=== PATIENT | female | born 1980 | race Caucasian/White ===

== ENCOUNTER 2020-08-13 22:56 | Emergency (ER) | payer MEDICAID, SELFPAY ==
--- NOTE | 2020-08-13 00:02 | RAD_ITS ---
STUDY: X-RAY CHEST REASON FOR EXAM: Female, 39 years old. SEIZURE, SOB. PT STATES HX OF HYPOTENSION. TECHNIQUE: Single AP portable view of the chest. COMPARISON: None. FINDINGS: The lungs are clear and expanded. There is no demonstrated pleural abnormality. Normal size heart. Normal mediastinum and martina. Normal visualized pulmonary arteries. Normal visualized aortic arch and descending thoracic aorta. Normal visualized thoracic spine. Normal visualized ribs, clavicles, and shoulders. There is no demonstrated abnormality of the visualized soft tissue structures of the upper abdomen. RAD/Chest 1 View (Portable) IMPRESSION: Normal x-ray examination of the chest. Electronically Signed: Nohemy Rios, at 1:01 EDT Tel , Service support ,
[2020-08-13 23:00] VITALS: BP 110/74; PULSE 89; RESP 16; TEMP 36.6; O2SAT 98; BMI 22.1
--- NOTE | 2020-08-13 23:34 | ED.DCSUM_ITS ---
History of Present Illness Chief Complaint: Seizure Informant: Patient, Significant Other Narrative: Patient is a 39-year-old female with a past medical history of seizure disorder, hepatitis C, psychiatric disorders who presents to the emergency department after 2 seizures tonight. Each lasted a few minutes. It sounded like one full episode as she had some convulsion-like activity for 2 minutes and then stiffened up. A few minutes later she again had convulsions. At time of arrival to the emerge department she is feeling much better. She was feeling sleepy prior to coming in. She only is on gabapentin as she was previously on antiepileptic medications but she did not like the way she felt on them. Her PCP did just decrease her dose. She has been having URI symptoms including a cough that has been productive over the past 2 days. She has felt warm but has not taken her temperature. She has been having bilateral ear pain, sore throat and congestion. She has been coughing up a green phlegm. No known sick contacts. No known coronavirus exposures. She denies any weakness or loss sensation in any extremity. No significant headache. No vision changes. She denies any urinary symptoms. She is a current everyday smoker. Denies alcohol or drug use. She states that she has been clean over the past 3-1/2 months. Past Medical History - Allergies and Home Meds Allergies/Adverse Reactions: Allergies acetaminophen [From Vicodin] Adverse Reaction (Verified 08/13/20 23:04) Upset Stomach hydrocodone [From Vicodin] Adverse Reaction (Verified 08/13/20 23:04) Upset Stomach latex Adverse Reaction (Verified 08/13/20 23:04) Fever and skin rash Primary Care Physician: Care Physician,No Primary [Primary Care Provider] - 1 Day Prior records reviewed: Yes Smoking Status: Current every day smoker Review of Systems All systems negative except as indicated General: Reports: Fever - Subjective. Denies: Chills, Sweats Eyes: Denies: Visual changes - bilaterally, Diplopia ENT: Reports: Bilateral ear pain, Sore throat. Denies: Rhinorrhea Cardiovascular: Denies: Chest pain, Palpitations Respiratory: Reports: Dyspnea, Cough, Sputum Gastrointestinal: Denies: Abdominal pain, Nausea, Vomiting, Diarrhea, Melena, Hematochezia Genitourinary: Denies: Dysuria, Hematuria, Frequency Musculoskeletal: Denies: Back pain, Extremity Pain Skin: Denies: Rash, Wounds Neurological: Denies: Headache, Weakness, Numbness Physical Exam Vital Signs/Narrative: Vital Signs Temp Pulse Resp BP Pulse Ox 08/13/20 23:00 97.9 F 89 16 110/74 98 General: Well nourished, Well developed, No Acute Distress Head: Normocephalic, Atraumatic Eyes: Perrl, EOMI ENT: Moist mucous membranes, Nasal congestion, - - Tympanic membrane view is obstructed due to cerumen impaction bilaterally. No evidence of otitis externa. Neck: Supple, Nontender Cardiovascular: Regular rate, Regular rhythm, No murmurs Respiratory: No distress, CTA bilaterally, Chest nontender Abdomen: Soft, Nontender, Nondistended, Normal bowel sounds Back: Nontender, Normal Inspection Extremities: Nontender, No edema Skin: Normal color, No rash Neurological: Alert, Oriented x3, Cranial nerves II-XII grossly intact, Normal Strength, Normal Sensation Psychological: Normal affect, Normal Mood Diagnostic/Tx/Re-eval - Medical Decision Making Patient presents to the ED after seizure-like activity. She has a history of this in the past and this had a recent decrease of her gabapentin which is her only medication she states she is on for seizures. She is also having URI-like symptoms. Upon arrival to the emerge department vital signs within normal limits. She does not appear in any acute distress. Will check basic lab work, chest x-ray and coronavirus swab. Patient's work-up did not reveal any significant acute abnormality. No evidence of pneumonia on chest x-ray. She did not have any repeat seizure-like activity throughout ED stay. This time she does feel comfortable going home. We will have her follow-up with her PCP for continued management of her seizures. She may require the increase back of her gabapentin or start on antiepileptic medication. At this time she does not want to be restarted on anything given the fact the way it makes her feel. At this time will discharge home in stable condition. Warning signs and symptoms for which to return to the ED are reviewed with her. She understands and is agreeable this plan. All questions answered. Coronavirus is currently pending. ED Disposition - Plan for ED Patient: Disposition: Home or Assisted Living Diagnosis: Seizure, URI (upper respiratory infection) Instructions: ED Seizure Recurrent Adult, ED URI Viral Referrals: Care Physician,No Primary [Primary Care Provider] - 1 Day
[2020-08-13 23:55] LABS: Absolute Neutrophil Count 3.7 X10^3/uL (2.0-7.7); Basophil# 0.04 X10^3/uL; Basophil% 0.6 % (0-1); Eosinophil# 0.12 X10^3/uL; Eosinophils% 1.9 % (0-5); Hemoglobin 11.6 g/dL (12.0-15.0); Lymphocyte % 29.9 % (19-41); Mean Corp Hgb Conc 34.1 g/dL (32-36); Mean Corpuscular Hgb 30.2 pg (27.0-32.0); Mean Corpuscular Volume 88.5 fL (81-99); Mean Platelet Vol. 9.4 fl (6.2-12.0); Monocyte# 0.56 X10^3/uL; Monocyte% 8.8 % (0-10); NRBC Flagged by Analyzer 0 % (0-5); Neutrophil # 3.68 X10^3/uL (2.7-7.7); Neutrophil % 57.9 % (47-70); Platelet Count 301 K/mm3 (150-450); RBC Distribution Width CV 11.3 % (11.6-14.6); RBC Distribution Width SD 36.1 fl (35.1-43.9); Red Blood Count 3.84 M/mm3 (4.2-5.4); White Blood Count 6.4 K/mm3 (4.4-11.0)
[2020-08-14 00:01] LABS: Internal QC Validated? YES +Cl - CLEAR BKGD; Pregnancy, Serum, hCG Quali. NEGATIVE Negative
[2020-08-14 00:12] LABS: ALB/GLOB Ratio 1.2 RATIO (0.9-2.4); AST(SGOT) 19 U/L (15-37); Alanine Aminotransfer ALT/SGPT 32 U/L (13-56); Albumin, Serum 3.8 g/dL (3.2-5.0); Alkaline Phosphatase 60 U/L (45-117); Anion Gap 5 (5-15); BUN 14 mg/dL (7-18); BUN/Creat Ratio 18.2 RATIO (10-20); Calcium,Total 8.6 mg/dL (8.5-10.1); Chloride 111 mmol/L (98-107); Creatinine, Serum 0.77 mg/dL (0.55-1.02); EST Glomerular Filtration Rate 89 mL/min (>60); Est Glom Filt Rate - Afr Amer 107 mL/min (>60); Estimated Creatinine Clearance 74.02 ml/min; Globulin 3.3 g/dL (2.2-4.2); Glucose 128 mg/dL (74-106); Potassium 3.4 mmol/L (3.5-5.1); Protein, Total 7.1 g/dL (6.4-8.2); Sodium Level 141 mmol/L (136-145)
[2020-08-14 01:28] VITALS: BP 128/72; PULSE 68; RESP 16; O2SAT 98
== END 2020-08-14 01:30 | disposition home or self-care (01) ==
PROVIDERS: Emergency Provider Emergency Medicine
DX: G40.909 Epilepsy, unspecified, not intractable, without status epilepticus (principal); J06.9 Acute upper respiratory infection, unspecified; H61.23 Impacted cerumen, bilateral; Z79.899 Other long term (current) drug therapy; F17.200 Nicotine dependence, unspecified, uncomplicated
CPT/HCPCS: 71045; 80053; 84484; 84703; 85025; 87635; 99285; A4216; U0003

== ENCOUNTER 2020-09-30 13:07 | Emergency (ER) | payer MEDICAID, SELFPAY ==
[2020-09-30 13:08] VITALS: BP 130/81; PULSE 79; RESP 16; TEMP 36; O2SAT 99; BMI 21.7
--- NOTE | 2020-09-30 13:32 | CT_ITS ---
STUDY: CT BRAIN WITHOUT CONTRAST REASON FOR EXAM: Female, 39 years old. HIT HEAD-RIGHT TEMPORO-PARIETAL AREA X2 WEEKS AGO--STILL HAS BUMP ON HEAD -- HEADACHE,INTERMITTENT DIZZINESS -- ?SEIZURE WHILE SLEEPING X2 DAYS AGO RADIATION DOSAGE (If Supplied By Facility): CTDIvol = ( 44.99 ) mGy, DLP = ( 745.49 ) mGycm TECHNIQUE: Transaxial CT imaging of the brain was performed without administration of intravenous contrast material. Individualized dose optimization techniques were used for this CT. COMPARISON: No relevant priors. FINDINGS: Normal soft tissue structures. Normal calvarium. Normal size ventricles and extra-axial spaces for the patient''s age. Normal white matter tracts of the cerebral hemispheres. Normal basal ganglia and thalami. Normal brainstem. Normal cerebellum. There is no intracranial hemorrhage. There are no findings of an acute ischemic infarction. Normal visualized paranasal sinuses. CT/Brain/Head without Contrast IMPRESSION: Normal unenhanced CT scan of the brain. Electronically Signed: Jamir Galvan, at 13:56 EST , Service support ,
--- NOTE | 2020-09-30 13:33 | ED.DCSUM_ITS ---
History of Present Illness Chief Complaint: Head Injury Informant: Patient Onset: Days - 2 Context: Gradual Onset - Symptoms after injury Timing: Continuous Quality: ache Location: right head Current Severity: Moderate Maximum Severity: Moderate Worsened by: nothing Relieved by: ibuprofen but minimal relief Associated Symptoms: Vertiginous, nausea, blurry vision at times Narrative: Patient states 2 days ago she was coming down her steps and accidentally hit the right temporal area of her scalp/head on part of the ceiling that bends down. She did not lose consciousness, she states she hit it pretty hard though. Since then she has felt gradually dizzy, headache, nausea. No focal neurologic symptoms. No syncope even later, no confusion, no diplopia but is having blurry vision. Does not take any anticoagulants. Past Medical History - Allergies and Home Meds Allergies/Adverse Reactions: Allergies acetaminophen [From Vicodin] Adverse Reaction (Verified 09/30/20 13:10) Upset Stomach hydrocodone [From Vicodin] Adverse Reaction (Verified 09/30/20 13:10) Upset Stomach latex Adverse Reaction (Verified 09/30/20 13:10) Fever and skin rash Primary Care Physician: Doctor,Your [STAFF PHYSICIAN] - 1 Week if not improving Past Medical History: None Smoking Status: Current every day smoker Review of Systems General: Reports: - - Vertigo off and on. Denies: Chills, Fever, Sweats Eyes: Reports: Blurred Vision - bilaterally. Denies: Diplopia ENT: Reports: - - No otorrhea. Denies: Rhinorrhea, Sore throat Cardiovascular: Denies: Chest pain, Palpitations Respiratory: Denies: Dyspnea, Cough, Dyspnea on exertion Gastrointestinal: Reports: Nausea. Denies: Abdominal pain, Vomiting, Diarrhea, Melena, Hematochezia Genitourinary: Denies: Dysuria, Hematuria, Frequency Musculoskeletal: Denies: Back pain, Extremity Pain Skin: Denies: Rash, Wounds Neurological: Denies: Headache, Weakness, Numbness Physical Exam Vital Signs/Narrative: Vital Signs Temp Pulse Resp BP Pulse Ox 09/30/20 13:08 96.8 F L 79 16 130/81 H 99 Inital Vital Signs reviewed: Yes General: Well nourished, Well developed, No Acute Distress Head: Normocephalic, Tenderness - Right temporal scalp, small hematoma. No crepitance or depression or purpura/ecchymosis. Eyes: Perrl, EOMI, - - No photophobia ENT: Moist mucous membranes, No rhinorrhea, - - Cerumen impaction bilaterally, none of either TM is visible. No otorrhea. No haney sign. No periorbital e cchymosis. Midface stable and atraumatic. Neck: Supple - Full range of motion without pain., Nontender Respiratory: No distress Extremities: Nontender, No edema Skin: Normal color, No rash, Trauma - Minor contusion right temporal scalp, no laceration or other evidence of injury. Neurological: Alert, Oriented x3, Cranial nerves II-XII grossly intact, Normal Strength, Normal Sensation, Normal Gait Psychological: Normal affect, Normal Mood Diagnostic/Tx/Re-eval Clinical Impression(s) from Imaging Studies Brain CT 09/30/20 13:32 IMPRESSION: Normal unenhanced CT scan of the brain. Electronically Signed: Jamir Mandy, at 13:56 EST , Service support , - Medical Decision Making CT head obtained, it is negative. Patient is reassured, she likely has mild concussion. She was given medications and prescriptions for the symptoms, and advised to follow-up if her symptoms last longer than 1 week. ED Disposition - Plan for ED Patient: Disposition: Home or Assisted Living Diagnosis: Concussion without loss of consciousness Instructions: ED Concussion Prescriptions: Meclizine HCl 25 mg PO Q8H PRN #16 tab PRN Reason: Dizziness Prescription Printed Ondansetron [Zofran Odt] 8 mg PO Q8H PRN PRN #16 tab PRN Reason: Nausea Prescription Printed Referrals: Doctor,Your [STAFF PHYSICIAN] - 1 Week if not improving
[2020-09-30] MEDS: Ondansetron ODT 4 MG Tablet 8 MG PO (14:11)
[2020-09-30] MEDS: Acetaminophen 500 MG Tablet 1000 MG PO (14:11)
[2020-09-30] MEDS: Meclizine HCl 25 MG Tablet PO (14:12)
== END 2020-09-30 14:30 | disposition home or self-care (01) ==
LOC: ED 13:59
PROVIDERS: Emergency Provider Emergency Medicine
DX: S06.0X0A Concussion without loss of consciousness, initial encounter (principal); S00.03XA Contusion of scalp, initial encounter; W22.8XXA Striking against or struck by other objects, initial encounter; Y93.9 Activity, unspecified; Y92.9 Unspecified place or not applicable; F17.200 Nicotine dependence, unspecified, uncomplicated
CPT/HCPCS: 70450; 99283

== ENCOUNTER 2020-10-23 17:51 | Emergency (ER) | payer MEDICAID, SELFPAY ==
[2020-10-23 17:52] VITALS: BP 120/72; PULSE 97; RESP 15; TEMP 36.3; BMI 22.5
[2020-10-23] MEDS: Naproxen 500 MG Tablet PO (18:11)
[2020-10-23] MEDS: oxyCODONE 5 MG Tablet PO (18:11)
--- NOTE | 2020-10-23 18:15 | RAD_ITS ---
STUDY: X-RAY - THORACIC SPINE REASON FOR EXAM: Female, 40 years old. Pt with pain mid-low back after a fall a couple days ago. TECHNIQUE: 3 view(s) of the thoracic spine were obtained. COMPARISON: None. FINDINGS: Normal kyphosis of the thoracic spine. There is no substantial scoliosis. Normal thoracic vertebrae and endplates. Mild degenerative disc changes of the upper mid thoracic spine. The soft tissue structures are unremarkable. RAD/Thoracic Spine 3 Views IMPRESSION: Normal alignment of the thoracic spine without acute fracture deformity. Mild degenerative disc changes. Electronically Signed: Radha Lam MD at 18:44 EST , Service support ,
--- NOTE | 2020-10-23 18:24 | ED.DCSUM_ITS ---
- ER Visit Summary Date of Service: 10/23/20 Chief Complaint: Fall History of Present Illness: The patient is a 40 F who does not remember the name of her primary care physician. She reports that 3 days ago she fell while going down the stairs and injured her upper back. States she has pain instead of 10 severity unrelieved by ibuprofen. She denies any blow to the head or loss of consciousness. She not on anticoagulants. She denies neck, shoulder, wrist, or hip pain. Physical Examination: Vitals: Stable. Afebrile. Neck: No vertebral tenderness. Full ROM without difficulty. Cleared by NEXUS criteria. Back: Moderate tenderness palpation over the midportion of the thoracic spine. No point tenderness.. General: A&O x 3. NAD. Cardiovascular exam: Regular rate and rhythm, no murmur, rub or gallop. Respiratory exam: Chest nontender. No crepitus. Clear to auscultation bilaterally. No wheezes or stridor. Abdominal exam: Soft, nontender, nondistended, normal bowel sounds. No pain in RUQ or LUQ specifically. No peritoneal signs. Extremity: Atraumatic. No pain with range of motion. Test Results: 3 view of the thoracic spine is negative. Emergency Department Course and Treatment: An [facility] report was obtained which was negative. Patient was given a dose of oxycodone and naproxen here. Treatment Plan: With negative x-rays I do not think that opiate-based medications are warranted. She will be discharged instructions use Tylenol and/or ibuprofen for pain. Use a heating pad. Follow-up with her primary care physician in 3 to 5 days if not improving. Return to the emergency department for any worsening symptoms. Disposition: To home in improved and stable condition. Impression: 1. Fall. 2. Upper back pain. This note was generated with [employer] dictation software. It may contain incorrect words, spelling, and punctuation that were not noted in review of the chart prior to signing ED Disposition - Plan for ED Patient: Instructions: ED Back Pain (Acute or Chronic) Referrals: Doctor,Your [STAFF PHYSICIAN] - 3-5 Days if not improving
[2020-10-23 18:40] VITALS: RESP 16
== END 2020-10-23 18:42 | disposition home or self-care (01) ==
LOC: ED 18:37
PROVIDERS: Emergency Provider Emergency Medicine
DX: M54.9 Dorsalgia, unspecified (principal); R05 Cough; R11.0 Nausea; W10.9XXA Fall (on) (from) unspecified stairs and steps, initial encounter; Y93.9 Activity, unspecified; Y92.9 Unspecified place or not applicable; G40.909 Epilepsy, unspecified, not intractable, without status epilepticus; Z79.899 Other long term (current) drug therapy; F17.200 Nicotine dependence, unspecified, uncomplicated
CPT/HCPCS: 72072; 99283

== ENCOUNTER 2020-11-19 17:19 | Emergency (ER) | payer MEDICAID, SELFPAY ==
[2020-11-19 17:21] VITALS: BP 102/65; PULSE 74; RESP 14; TEMP 37.2; O2SAT 98; BMI 22.3
[2020-11-19 17:50] VITALS: PULSE 71; RESP 16; O2SAT 97
--- NOTE | 2020-11-19 18:06 | CT_ITS ---
STUDY: CT BRAIN WITHOUT CONTRAST REASON FOR EXAM: Female, 40 years old. SEIZURE,RT SIDED WEAKNESS X 2 DAYS AGO -- HX:SEIZURES,COPD,HEP C,PTSD RADIATION DOSAGE (If Supplied By Facility): CTDIvol = ( 44.99 ) mGy, DLP = ( 762.36 ) mGycm TECHNIQUE: Transaxial CT imaging of the brain was performed without administration of intravenous contrast material. Individualized dose optimization techniques were used for this CT. COMPARISON: 09/30/2020. FINDINGS: Normal soft tissue structures. Normal calvarium. Normal size ventricles and extra-axial spaces for the patient''s age. Normal white matter tracts of the cerebral hemispheres. Normal basal ganglia and thalami. Normal brainstem. Normal cerebellum. There is no intracranial hemorrhage. There are no findings of an acute ischemic infarction. Normal visualized paranasal sinuses. CT/Brain/Head without Contrast IMPRESSION: Normal unenhanced CT scan of the brain. Electronically Signed: Terra Chatman MD at 19:07 EST Tel , Service support ,
--- NOTE | 2020-11-19 18:06 | EKG12_ITS ---
Test Reason : DYSRHYTHMIA Blood Pressure : / mmHG Vent. Rate : 059 BPM Atrial Rate : 059 BPM P-R Int : 142 ms QRS Dur : 070 ms QT Int : 408 ms P-R-T Axes : 053 073 065 degrees QTc Int : 403 ms Sinus bradycardia with sinus arrhythmia Otherwise normal ECG Confirmed by JENNIFER MEEHAN, OMAR ([id number]), newspaper or periodical editor MICA VILLASEÑOR ([id number]) on 11/23/2020 10:55:12 AM Referred By: CHIP Confirmed By:NICA RODRIGUEZ MD
--- NOTE | 2020-11-19 18:09 | ED.DCSUM_ITS ---
- ER Visit Summary Date of Service: 11/19/20 Chief Complaint: Seizure and right-sided weakness History of Present Illness: The patient is a 40 F who presents with a seizure and right-sided weakness that occurred 2 days ago. Patient states she has a history of seizures. Patient states her last 1 was 2 days ago. Patient states that after her seizure she had some right sided weakness. Patient states she noticed it in her face, arm, and leg. Patient denies any difficulty swallowing or difficulty talking. Patient denies any headaches. Patient states she has been compliant with her seizure medications. Physical Examination: Vital signs are stable. Patient is afebrile. Patient is in no acute distress. Cranial nerves II through XII are intact except for slight facial weakness. Strength is 4/5 in the right upper and lower extremities. Strength is 5/5 in the left upper and lower extremities. There are no sensory deficits noted. Heart was regular rate and rhythm. Lungs are clear and equal bilaterally. Abdomen is soft. Bowel sounds are normal. There is no tenderness. Extremities are intact. There is no calf tenderness or edema. Test Results: EKG was obtained. On my interpretation, there is a normal sinus rhythm with a rate of 59. There are no acute ST or T wave changes. CT scan of the brain was obtained. There is no acute intracranial abnormality. This was interpreted by the radiologist and reviewed by myself. CBC and comprehensive metabolic profile were obtained and were essentially within normal limits. Emergency Department Course and Treatment: Patient is feeling better on reev aluation. 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 Patient was instructed to follow-up with her primary care physician in 3 to 5 days. Patient was instructed to continue her seizure medications as prescribed. Patient was instructed return if worse in any way. Patient understood and was agreeable with the plan. All questions were answered. Disposition: Discharge home Impression: 1. Pradeep's paralysis 2. Seizure This note was generated with [employer] dictation software. It may contain incorrect words, spelling, and punctuation that were not noted in review of the chart prior to signing ED Disposition - Plan for ED Patient: Disposition: Home or Assisted Living Diagnosis: Pradeep's paralysis (postepileptic), Seizure Instructions: ED Seizure, Recurrent (Adult) Referrals: Care Physician,No Primary [Primary Care Provider] - 3-5 Days
[2020-11-19 18:56] LABS: Absolute Lymphocyte Count 2.15 X10^3/uL (0.83-4.51); Basophil# 0.03 X10^3/uL; Basophil% 0.6 % (0-1); Eosinophil# 0.11 X10^3/uL; Eosinophils% 2.3 % (0-5); Hemoglobin 12.2 g/dL (12.0-15.0); Lymphocyte # 2.15 X10^3/ul (4.0); Lymphocyte % 45.7 % (19-41); Mean Corp Hgb Conc 33.9 g/dL (32-36); Mean Corpuscular Hgb 30.7 pg (27.0-32.0); Mean Corpuscular Volume 90.7 fL (81-99); Mean Platelet Vol. 9.6 fl (6.2-12.0); Monocyte# 0.44 X10^3/uL; Monocyte% 9.4 % (0-10); NRBC Flagged by Analyzer 0.4 % (0-5); Neutrophil # 1.97 X10^3/uL (2.7-7.7); Platelet Count 302 K/mm3 (150-450); RBC Distribution Width CV 12.1 % (11.6-14.6); RBC Distribution Width SD 40.2 fl (35.1-43.9); Red Blood Count 3.97 M/mm3 (4.2-5.4); White Blood Count 4.7 K/mm3 (4.4-11.0)
[2020-11-19 19:08] LABS: ALB/GLOB Ratio 1.2 RATIO (0.9-2.4); AST(SGOT) 14 U/L (15-37); Alanine Aminotransfer ALT/SGPT 25 U/L (13-56); Albumin, Serum 3.9 g/dL (3.2-5.0); Alkaline Phosphatase 63 U/L (45-117); Anion Gap 5 (5-15); BUN 14 mg/dL (7-18); BUN/Creat Ratio 18.6 RATIO (10-20); Calcium,Total 8.9 mg/dL (8.5-10.1); Chloride 109 mmol/L (98-107); Creatinine, Serum 0.75 mg/dL (0.55-1.02); EST Glomerular Filtration Rate 91 mL/min (>60); Est Glom Filt Rate - Afr Amer 110 mL/min (>60); Estimated Creatinine Clearance 75.24 ml/min; Globulin 3.3 g/dL (2.2-4.2); Glucose 99 mg/dL (74-106); Potassium 3.7 mmol/L (3.5-5.1); Protein, Total 7.2 g/dL (6.4-8.2); Sodium Level 141 mmol/L (136-145)
== END 2020-11-19 20:04 | disposition home or self-care (01) ==
PROVIDERS: Emergency Provider Emergency Medicine
DX: G83.84 Todd's paralysis (postepileptic) (principal); G40.909 Epilepsy, unspecified, not intractable, without status epilepticus; J44.9 Chronic obstructive pulmonary disease, unspecified; Z79.899 Other long term (current) drug therapy
CPT/HCPCS: 70450; 80053; 85025; 93005; 99285; A4216

== ENCOUNTER 2020-12-02 17:16 | Observation (INO) | payer MEDICAID, SELFPAY ==
[2020-12-02] VITALS (7 sets, daily range): BP systolic 102–105; BP diastolic 66–69; PULSE 71–85; RESP 16–17; TEMP 36.4–37.1; O2SAT 95–98; BMI 23.0; BMI 22.8
--- NOTE | 2020-12-02 17:31 | EKG12_ITS ---
Test Reason : SEIZURE Blood Pressure : / mmHG Vent. Rate : 072 BPM Atrial Rate : 072 BPM P-R Int : 148 ms QRS Dur : 070 ms QT Int : 380 ms P-R-T Axes : 045 067 047 degrees QTc Int : 416 ms Normal sinus rhythm Normal ECG Confirmed by JENNIFER MEEHAN, OMAR ([id number]), newspaper or periodical editor MICA VILLASEÑOR ([id number]) on 12/04/2020 8:38:34 AM Referred By: CHANO Confirmed By:NICA RODRIGUEZ MD
--- NOTE | 2020-12-02 17:32 | ED.DCSUM_ITS ---
History of Present Illness Chief Complaint: Seizure Narrative: Patient presents after 3 different seizures today. She has had seizures every 2 to 3 days for the past 3 or 4 weeks. No change in her medications, she continues to take her Lamictal and gabapentin as well as prazosin. She is not withdrawing from anything. No head injury. She had a recent CT which was unremarkable. No recent fever chills cough congestion or shortness of breath. No ingestions. No nausea or vomiting. Seizures are mostly witnessed by and they are described as tonic-clonic. Past medical history: Seizure disorder, as well as psychiatric issues Medications: Reviewed as above Social history: Noncontributory Review of systems: All systems negative except as indicated General: Denies: Fever Eyes: Denies: Visual changes - bilaterally ENT: Denies: Rhinorrhea, Sore throat Cardiovascular: Denies: Chest pain Respiratory: Denies: Dyspnea, Cough Gastrointestinal: Denies: Abdominal pain, Nausea, Vomiting Genitourinary: Denies: Dysuria Musculoskeletal: Denies: Myalgias Skin: Denies: Rash Neurological: As above Psych: Reports: negative Hematologic: Denies: Easy bruising, Easy bleeding Physical exam General: Patient does appear chronically ill Head: Normocephalic, Atraumatic Eyes: Conjunctiva not pale ENT: Dry mucous membranes. Normal tongue no intraoral trauma Neck: Supple, Nontender, No lymphadenopathy Cardiovascular: Regular rate, Regular rhythm Respiratory: No distress, CTA bilaterally Abdomen: Soft, Nontender, Nondistended Back: Nontender, Normal Inspection. Negative for: CVA tenderness Extremities: Nontender, No edema. No trauma Skin: Normal color, No rash Neurological: Alert, Normal Strength, Normal Sensation. She is oriented x3. Psychological: Normal affect Past Medical History - Allergies and Home Meds Allergies/Adverse Reactions: Allergies acetaminophen [From Vicodin] Adverse Reaction (Verified 11/19/20 17:24) Upset Stomach hydrocodone [From Vicodin] Adverse Reaction (Verified 11/19/20 17:24) Upset Stomach latex Adverse Reaction (Verified 11/19/20 17:24) Fever and skin rash Primary Care Physician: Care Physician,No Primary [NON-STAFF] - Smoking Status: Current every day smoker Physical Exam Vital Signs/Narrative: Vital Signs Temp Pulse Resp BP Pulse Ox 12/02/20 17:17 97.6 F L 85 16 103/69 98 12/02/20 17:16 97.6 F L 85 16 98 Diagnostic/Tx/Re-eval - Medical Decision Making Patient had 3 different seizures and she was not fully coherent in between him per her , it seems like her seizures are progressing I will admit her to the hospital she can get a teleconference neurology consult inpatient. I also started her on Keppra IV in the emergency department. She is lucid and coherent, had a normal CT a few weeks ago therefore I will not repeated. ED Disposition - Plan for ED Patient: Disposition: Acute Care Hospital [facility] Diagnosis: Seizure
[2020-12-02 17:53] LABS: Absolute Lymphocyte Count 2.23 X10^3/uL (0.83-4.51); Absolute Neutrophil Count 2.2 X10^3/uL (2.0-7.7); Basophil# 0.03 X10^3/uL; Basophil% 0.6 % (0-1); Eosinophil# 0.13 X10^3/uL; Eosinophils% 2.6 % (0-5); Hematocrit 35.6 % (37-47); Hemoglobin 12.2 g/dL (12.0-15.0); Lymphocyte # 2.23 X10^3/ul (4.0); Lymphocyte % 44.8 % (19-41); Mean Corp Hgb Conc 34.3 g/dL (32-36); Mean Corpuscular Hgb 30.7 pg (27.0-32.0); Mean Corpuscular Volume 89.7 fL (81-99); Mean Platelet Vol. 9.6 fl (6.2-12.0); NRBC Flagged by Analyzer 0 % (0-5); Neutrophil # 2.18 X10^3/uL (2.7-7.7); Neutrophil % 43.8 % (47-70); Platelet Count 287 K/mm3 (150-450); RBC Distribution Width CV 11.9 % (11.6-14.6); RBC Distribution Width SD 39.2 fl (35.1-43.9); Red Blood Count 3.97 M/mm3 (4.2-5.4)
[2020-12-02 18:09] LABS: ALB/GLOB Ratio 1.4 RATIO (0.9-2.4); AST(SGOT) 16 U/L (15-37); Alanine Aminotransfer ALT/SGPT 28 U/L (13-56); Albumin, Serum 4.2 g/dL (3.2-5.0); Alkaline Phosphatase 59 U/L (45-117); Anion Gap 2 (5-15); BUN 15 mg/dL (7-18); BUN/Creat Ratio 20.1 RATIO (10-20); Calcium,Total 8.7 mg/dL (8.5-10.1); Chloride 110 mmol/L (98-107); Creatinine, Serum 0.75 mg/dL (0.55-1.02); EST Glomerular Filtration Rate 91 mL/min (>60); Est Glom Filt Rate - Afr Amer 110 mL/min (>60); Estimated Creatinine Clearance 75.24 ml/min; Globulin 3.1 g/dL (2.2-4.2); Glucose 100 mg/dL (74-106); Potassium 3.6 mmol/L (3.5-5.1); Protein, Total 7.3 g/dL (6.4-8.2); Sodium Level 140 mmol/L (136-145)
[2020-12-02 18:16] LABS: Lactic Acid 0.8 mmol/L (0.4-1.9)
[2020-12-02 18:57] LABS: Bacteria 0 SEEN /hpf (None Seen); Mucous, Urine 0 SEEN /hpf (<or=2+)
--- NOTE | 2020-12-02 19:10 | PCM.HP.STD ---
Problem List (1) History of polysubstance use Status: Acute (2) Recurrent fall Status: Chronic (3) Seizure Status: Acute (4) Chronic seizure disorder with history of head trauma Status: Acute History of Present Illness Date of Admission: 12/02/20 Chief Complaint: 3 seizures today The patient is a 40 year old F with history of multiple seizures in the past, last ER visit on 128 for seizure and mild right-sided weakness and impression was Pradeep's paralysis and was sent home with negative CT head. Today she came to ER with 3 episodes of seizure, grand mal type [id number] in last 1 and half hours. Each seizure episode lasted about 1 to 2 minutes as per the who is near the bedside and I witness. She had stiffness of her whole body and extension and then rhythmic motion of all 4 extremities. She denies any recent fever, cough, shortness of breath, burning micturition or new lower urinary tract symptoms or any signs and symptoms of infection. She also stated she is taking her medications, lamotrigine and gabapentin regularly. She has nausea but denies any vomiting. Patient is states she has fallen and had head injury multiple times in the past. She denies any history of intracranial surgery but was sutured for laceration wounds in the scalp in the past. Past Medical History Past Medical History (Chronic Problems): Chronic Problems Recurrent fall (Chronic) Allergies acetaminophen [From Vicodin] Adverse Reaction (Verified 11/19/20 17:24) Upset Stomach hydrocodone [From Vicodin] Adverse Reaction (Verified 11/19/20 17:24) Upset Stomach latex Adverse Reaction (Verified 11/19/20 17:24) Fever and skin rash Home Medications: Ambulatory Orders Medication Instructions Recorded Gabapentin [Neurontin] 100 mg PO TIDCM 08/13/20 Lamotrigine [Lamictal] 150 mg PO DAILY 08/13/20 Prazosin HCl 2 mg PO QHS 08/13/20 Risperidone 1 mg PO DAILY 08/13/20 Risperidone [Risperdal] 0.5 mg PO QHS 11/19/20 Naproxen 500 mg PO BID 12/02/20 Smoking Status: Current every day smoker - *Family History Paternal History Items: Unknown Review of Systems Constitutional: Denies: Chills, Fever, Weight Change HEENT: Denies: Head Aches, Sinus Congestion, Sinus Drainage Cardiovascular: Denies: Chest Pain, Palpitations Respiratory: Denies: Cough, Shortness of breath at rest, Sputum production Gastrointestinal: Denies: Abdominal Pain, Nausea, Vomiting Genitourinary: Denies: Dysuria Musculoskeletal: Denies: Joint Pain, Joint Tenderness Skin: Denies: Rash, Wounds Neurological: Reports: Balance problems, Seizures. Denies: Focal weakness, Numbness, Tingling Psychiatric: Denies: Anxiety, Depression, Homicidal Ideations, Suicidal Ideations Hematologic/ Lymphatic: Denies: Easy Bruising, Easy Bleeding Unable to obtain accurate/complete ROS d/t: From her near the bedside VTE Information - Inpt Only VTE Present on Admission: No VTE Mechan Device Prophylaxis: None VTE Pharm Prophylaxis ordered?: Yes Patient Problems: Active and Suspected Problems Seizure (Acute) History of polysubstance use (Acute) Chronic seizure disorder with history of head trauma (Acute) Objective: Physical exam General: Alert, Oriented x2, Cooperative but patient is slow to respond with delayed reaction HEENT: Atraumatic, PERRLA, EOMI, Normocephalic Oral: No Gingival or Mucosal Lesions/ Ulcerations Neck: Supple, No JVD, Negative Carotid Bruits Lungs: Air entry equal in bilateral lung bases. No crepitation/rhonchi Cardiovascular: Regular rate, Regular Rhythm, Normal S1, Normal S2, No murmurs Abdomen: Bowel Sounds Present, Soft, Non Tender, Non-Distended : No renal angle tenderness. No suprapubic tenderness. Extremities: No edema, Capillary Refill Less than 3 Seconds Skin: No rashes, No breakdown Musculoskeletal: No Tenderness to Palpation of Joints or Extremities. Decrease in the muscle bulk of extremities. Neurological: Cranial nerves II-XII grossly intact, Deep Tendon Reflexes 2+/4 and Symmetrical. Psych/Mental Status: Flat affect. - Physical Exam Vitals/I&O's: Vital Signs Temp Pulse Resp BP Pulse Ox 97.6 F L 85 16 103/69 98 12/02/20 17:17 12/02/20 17:17 12/02/20 17:17 12/02/20 17:17 12/02/20 17:17 Oxygen Delivery Method Room Air Weight: 121 lb 14.65 oz Body Mass Index (BMI) 23.0 Intake and Output for Last 24 Hours 11/30/20 12/01/20 12/02/20 23:59 23:59 23:59 Intake Total 605 / 605 Balance 605 / 605 Microbiology Past 72 Hours 12/02/20 18:16 Mucosa - Nose SARS-CoV-2 Antigen (Rapid) - Final Laboratory Results 12/02/20 17:44: WBC 5.0, RBC 3.97 L, Hgb 12.2, Hct 35.6 L, MCV 89.7, MCH 30.7, MCHC 34.3, RDW Std Deviation 39.2, RDW Coeff of Main 11.9, Plt Count 287, MPV 9.6, Immature Gran % (Auto) 0.200, Neut % (Auto) 43.8 L, Lymph % (Auto) 44.8 H, [place] % (Auto) 8.0, Eos % (Auto) 2.6, Baso % (Auto) 0.6, Absolute Neuts (auto) 2.2, Absolute Lymphs (auto) 2.23, Nucleated RBC % 0 12/02/20 17:44: Sodium 140, Potassium 3.6, Chloride 110 H, Carbon Dioxide 28.0, Anion Gap 2 L, BUN 15, Creatinine 0.75, Estim Creat Clear Calc 75.24, Est GFR (MDRD) Af Amer 110, Est GFR (MDRD) Non-Af 91, BUN/Creatinine Ratio 20.1 H, Glucose 100, Calcium 8.7, Total Bilirubin 0.40, AST 16, ALT 28, Alkaline Phosphatase 59, Total Protein 7.3, Albumin 4.2, Globulin 3.1, Albumin/Globulin Ratio 1.4 12/02/20 17:44: Lactic Acid 0.8 12/02/20 18:40: Urine Color Pending, Urine Clarity Pending, Urine pH Pending, Ur Specific [place] Pending, Urine Protein Pending, Urine Glucose (UA) Pending, Urine Ketones Pending, Urine Occult Blood Pending, Urine Nitrite Pending, Urine Bilirubin Pending, Urine Urobilinogen Pending, Ur Leukocyte Esterase Pending, Urine RBC Pending, Urine WBC Pending, Ur Squamous Epith Cells Pending, Urine Bacteria Pending, Urine Mucus Pending 12/02/20 : Lamotrigine Pending Assessment/Plan All Active Problems Seizure (Acute) History of polysubstance use (Acute) Chronic seizure disorder with history of head trauma (Acute) The patient is a 40 year old F with history of multiple seizures in the past, came to ER with 3 episodes of recurrent seizure grand mal type. 1. Recurrent seizure, exact etiology unclear: Patient is being admitted in PCU. MRI brain and EEG ordered for tomorrow a.m. EKG shows normal sinus rhythm at 72 bpm. QTC 416 ms. Patient was given 500 mg Keppra in ER and Keppra continue 500 mg IV twice daily. [facility] neurology consult after MRI brain and EEG are done. Magnesium and phosphorus are normal. K3.6 and 1 dose of K. Dur ordered. She was seen by seizure and right-sided weakness on November 11, 2020 which was thought to be Pradeep's paralysis. 2. History of recurrent fall, head injury in the past and polysubstance use in the past. Patient had recurrent ER visits 4 times since July 2020 and 3 times this year. She had fall and mild head injury and had ED visits on September 30, 2020 and October 23, 2020. PT and OT ordered. 3. VTE prophylaxis: Lovenox 40 subcu daily. OBSV E&M: 10238 Initial observation care L3
--- NOTE | 2020-12-02 19:20 | RAD_ITS ---
STUDY: X-RAY CHEST REASON FOR EXAM: Female, 40 years old. Seizure, concern for aspiration TECHNIQUE: PA and lateral views of the chest. COMPARISON: 08/13/2020. FINDINGS: Cardiac silhouette unremarkable. Pulmonary vascularity unremarkable. Aorta unremarkable. No focal airspace opacities. No pleural effusions. Bibasilar nodular densities are presumed to represent nipple shadows. Upper abdomen unremarkable. Osseous structures intact. No pneumothorax. RAD/Chest PA and Lateral IMPRESSION: No acute cardiopulmonary process identified. Bibasilar nodular densities are presumed to represent nipple shadows. Electronically Signed: Leroy Rodriguez MD at 19:46 EST Tel , Service support ,
[2020-12-02 19:22] LABS: Color, Urine Yellow (Yellow); Glucose, Dipstick Normal (Normal); Ketone-Dipstick Negative (Negative); Leukocyte Esterase-Dipstick 25 /ul (Negative); Nitrite-Dipstick Negative (Negative); Occult Blood-Urine 25 /ul (Negative); Protein-Dipstick Negative (Negative); Specific Gravity, Urine 1.015 (1.002-1.030); Urine Bilirubin Dipstick Negative (Negative); Urine Clarity Clear (Clear); Urine Urobilinogen 1 mg/dl (Normal); Urine pH 6.5 (5.0 - 8.0)
[2020-12-02 19:37] LABS: Red Blood Cells-Urine 0-5 SEEN /hpf (0-5); Squamous Epithelial Cells - UA 0-5 SEEN /hpf (5-10); White Blood Cells 0-5 SEEN /hpf (0-5)
[2020-12-02 20:10] LABS: Phosphorus 3.9 mg/dL (2.5-4.9)
[2020-12-02 20:18] LABS: Amphetamine Urine VISTA NEGATIVE (<1000 ng/mL); Barbiturate Urine VISTA NEGATIVE (< 200 ng/mL); Benzodiazepine Urine VISTA NEGATIVE (< 200 ng/mL); Cocaine Urine VISTA NEGATIVE (< 300 ng/mL); Ecstacy Urine VISTA NEGATIVE (< 500 ng/mL); Methadone Urine VISTA NEGATIVE (< 300 ng/mL); PCP Urine VISTA NEGATIVE (< 25 ng/mL); THC Urine VISTA NEGATIVE (< 50 ng/mL); Vista UDS pH Range 6
--- NOTE | 2020-12-02 20:33 | PCS.PANDOC ---
PANDEMIC DOCUMENTATION INITIATED: Date: 12/02/2020 Time: 2024
[2020-12-02] MEDS: 0.9% Normal Saline 1,000 ML 100 ML IV (20:51)
[2020-12-02] MEDS: RisperiDONE 0.5 MG Tablet PO (21:55)
[2020-12-03] VITALS (11 sets, daily range): BP systolic 103–109; BP diastolic 62–80; PULSE 71–85; RESP 16–18; TEMP 36.4–37.7; O2SAT 94–97
[2020-12-03] MEDS: Ipratropium/Albuterol Sulfate 3 ML AMPUL.NEB INHALATION (04:15)
--- NOTE | 2020-12-03 05:55 | MRI_ITS ---
STUDY: MRI BRAIN WITHOUT CONTRAST REASON FOR EXAM: Female, 40 years old. seizures, hx of head injury in the past TECHNIQUE: Standardized multiplanar fat and water weighted pulse sequences were obtained. COMPARISON: CT head 11/19/2020. FINDINGS: No intracranial mass, mass effect or midline shift. No hemorrhage, territorial infarct or acute ischemia. Symmetric temporal lobes. Normal size of the ventricles and extra-axial spaces for the patient''s age. Normal white matter tracts of the supratentorial brain. There is no extra-axial fluid accumulation. Normal flow voids within the major intracranial circulation suggesting patency by spin echo criteria. Normal sella turcica, pituitary gland, infundibular stalk, optic chiasm and hypothalamus. Normal midbrain, mis and medulla. Normal cerebellum. Normal basal cisterns. Normal bilateral temporal bones. Normal bilateral internal auditory canals. Normal visualized paranasal sinuses. Normal calvarium and skull base. Normal visualized soft tissue structures. MRI/Brain without Contrast IMPRESSION: Normal unenhanced MRI of the brain. Electronically Signed: Terra Chatman MD at 17:32 EST Tel , Service support ,
[2020-12-03 06:04] LABS: Anion Gap 7 (5-15); BUN 14 mg/dL (7-18); BUN/Creat Ratio 22.8 RATIO (10-20); Calcium,Total 8.3 mg/dL (8.5-10.1); Chloride 114 mmol/L (98-107); Creatinine, Serum 0.61 mg/dL (0.55-1.02); EST Glomerular Filtration Rate 115 mL/min (>60); Est Glom Filt Rate - Afr Amer 139 mL/min (>60); Estimated Creatinine Clearance 92.51 ml/min; Glucose 97 mg/dL (74-106); Potassium 4.1 mmol/L (3.5-5.1); Sodium Level 141 mmol/L (136-145)
[2020-12-03] MEDS: 0.9% Normal Saline 1,000 ML 100 ML IV (08:07)
[2020-12-03] MEDS: Gabapentin 100 MG Capsule PO (08:09)
[2020-12-03] MEDS: lamoTRIgine 150 MG Tablet PO (08:10)
--- NOTE | 2020-12-03 10:01 | TELEMED_ITS ---
[facility] Telemed has confirmed receipt of a request for visit. This document confirms receipt of the order initiating the consult. To find the results of the consultation, please view the patient's reports for the scanned Telemed Consult.
[2020-12-03] MEDS: Acetaminophen 325 MG Tablet 650 MG PO (10:46)
[2020-12-03] MEDS: RisperiDONE 1 MG Tablet PO (10:47)
[2020-12-03] MEDS: Enoxaparin 40 MG/0.4 ML Syringe SC (10:48)
[2020-12-03] MEDS: Ondansetron 4 MG/2 ML Vial IV (10:48)
--- NOTE | 2020-12-03 14:19 | PCM.DC ---
- Discharge Diagnoses Current Active Problems: Current Active and Chronic Problems Seizure (Acute) History of polysubstance use (Acute) Recurrent fall (Chronic) Chronic seizure disorder with history of head trauma (Acute) You will use the following diet at home:: No restrictions Discharge Activity: Return to Normal Activity Call your doctor if you observe: Shortness of breath, Dizziness, Fainting spells, Chest pain Additional Instructions: EEG showed no evidence of seizures or abnormalities. Recommend additional seizure medication, Keppra and further outpatient follow-up with neurology for additional recommendations and evaluation. Allergies/Adverse Reactions: Allergies acetaminophen [From Vicodin] Adverse Reaction (Verified 11/19/20 17:24) Upset Stomach hydrocodone [From Vicodin] Adverse Reaction (Verified 11/19/20 17:24) Upset Stomach latex Adverse Reaction (Verified 11/19/20 17:24) Fever and skin rash Medications to take at Discharge Gabapentin [Neurontin] 100 mg PO TIDCM 08/13/20 Lamotrigine [Lamictal] 150 mg PO DAILY 08/13/20 Prazosin HCl 2 mg PO QHS 08/13/20 Risperidone 1 mg PO DAILY 08/13/20 Risperidone [Risperdal] 0.5 mg PO QHS 11/19/20 Naproxen 500 mg PO BID 12/02/20 Levetiracetam [Keppra] 500 mg PO BID #60 tab 12/03/20 The following prescriptions were given: Levetiracetam [Keppra] 500 mg PO BID #60 tab Transmission Status: Pending to [employer] #30 Primary Care Physician: Toyin Beltran PA [Primary Care Provider] - Please follow up with your Primary Care Physician in: 3-5 Days Test Results: Test results from this visit will be discussed in further detail at your follow-up appointment, if applicable. Please Follow Up With: Reed Varma MD When: 1 Week, or primary neurologist Proposed Discharge Date: 12/03/20
--- NOTE | 2020-12-03 14:23 | PCM.DC.SUM ---
Discharge Date and Diagnosis - Problem List Patient Problems: Active and Suspected Problems Seizure (Acute) History of polysubstance use (Acute) Chronic seizure disorder with history of head trauma (Acute) Date of Admission: 12/02/20 Date of Discharge: 12/03/20 - Primary Discharge Diagnosis Acute Problems: Active Problems 1. Breakthrough seizure 2. History of head injury 3. History of polysubstance abuse 4. Bipolar disorder 5. Tobacco dependence - Secondary Discharge Diagnosis Chronic Problems: Chronic Problems Recurrent fall (Chronic) Hospital Course and Treatment Imaging Results: Diagnostic Data Chest X-Ray 12/02/20 19:20 IMPRESSION: No acute cardiopulmonary process identified. Bibasilar nodular densities are presumed to represent nipple shadows. Electronically Signed: Leroy Rodriguez MD at 19:46 EST Tel , Service support , Operations: None Procedures: Electroencephalogram Summary of Care Provided: The patient is a 40 year old F admitted 12/02/20 due to recurrent seizures. 1. Breakthrough seizure-patient was seen in the emergency room 11/19/2020 for suspected seizure/Pradeep's paralysis. Brain CT negative at that time. Patient states she has been having a seizure about every other day at home. She states it typically last 1 to 2 minutes and her whole body gets stiff. Patient tells this provider she has never formally been diagnosed with seizures however per physician, she reported history of seizures since she was a child. No seizure activity during admission. EEG with no seizures or epileptiform abnormalities. MRI of brain pending and will be reviewed prior to discharge. Continue home Lamictal regimen. Additionally initiated on Keppra 500 mg twice daily. Patient recently referred to neurology, she states she is working on setting up appointment. Follow-up with neurology in 1 week. Follow-up with PCP in 3 to 5 days. 2. History of head injury-possibly contributing to #1. 3. History of polysubstance abuse-tox screen negative. Patient reports in remission. 4. Bipolar disorder-on Risperdal. 5. Tobacco dependence-encouraged cessation. Patient seen and examined prior to discharge. Physical assessment as noted below. Patient is stable for discharge with follow up recommendations as noted above. This patient was seen by DIGNA Abebe under the supervision of Dr. Hernandez. Patient Problems: Active and Suspected Problems Seizure (Acute) History of polysubstance use (Acute) Chronic seizure disorder with history of head trauma (Acute) - Physical Exam Vitals/I&O's: Vital Signs Temp Pulse Resp BP Pulse Ox 97.9 F 80 18 105/80 97 12/03/20 10:50 12/03/20 11:00 12/03/20 10:50 12/03/20 10:50 12/03/20 10:50 Oxygen Flow Rate (L/min) 2 Oxygen Delivery Method Room Air Weight: 120 lb 9.486 oz Body Mass Index (BMI) 22.8 Intake and Output for Last 24 Hours 12/01/20 12/02/20 12/03/20 23:59 23:59 23:59 Intake Total 1216.67 / 1216.67 1358.33 / 1358.33 Balance 1216.67 / 1216.67 1358.33 / 1358.33 General: Alert, Oriented x3, Cooperative HEENT: Atraumatic, PERRLA, EOMI, Normocephalic Neck: Supple, No JVD, Negative Carotid Bruits Lungs: Clear to auscultation, Normal air movement Cardiovascular: Regular rate, No murmurs Abdomen: Bowel Sounds Present, Soft, Non Tender, Non-Distended Extremities: No clubbing, No cyanosis, No edema, Capillary Refill Less than 3 Seconds Skin: No rashes, No breakdown Musculoskeletal: No Tenderness to Palpation of Joints or Extremities Neurological: Cranial nerves II-XII grossly intact, Neuro grossly intact Psych/Mental Status: Normal Affect, Appropriate Microbiology Past 72 Hours 12/02/20 18:16 Mucosa - Nose SARS-CoV-2 Antigen (Rapid) - Final Laboratory Results 12/02/20 17:44: WBC 5.0, RBC 3.97 L, Hgb 12.2, Hct 35.6 L, MCV 89.7, MCH 30.7, MCHC 34.3, RDW Std Deviation 39.2, RDW Coeff of Main 11.9, Plt Count 287, MPV 9.6, Immature Gran % (Auto) 0.200, Neut % (Auto) 43.8 L, Lymph % (Auto) 44.8 H, [place] % (Auto) 8.0, Eos % (Auto) 2.6, Baso % (Auto) 0.6, Absolute Neuts (auto) 2.2, Absolute Lymphs (auto) 2.23, Nucleated RBC % 0 12/02/20 17:44: Sodium 140, Potassium 3.6, Chloride 110 H, Carbon Dioxide 28.0, Anion Gap 2 L, BUN 15, Creatinine 0.75, Estim Creat Clear Calc 75.24, Est GFR (MDRD) Af Amer 110, Est GFR (MDRD) Non-Af 91, BUN/Creatinine Ratio 20.1 H, Glucose 100, Calcium 8.7, Total Bilirubin 0.40, AST 16, ALT 28, Alkaline Phosphatase 59, Total Protein 7.3, Albumin 4.2, Globulin 3.1, Albumin/Globulin Ratio 1.4 12/02/20 17:44: Lactic Acid 0.8 12/02/20 17:44: Phosphorus 3.9, Magnesium 2.0 12/02/20 18:40: Urine Color Yellow, Urine Clarity Clear, Urine pH 6.5, Ur Specific [place] 1.015, Urine Protein Negative, Urine Glucose (UA) Normal, Urine Ketones Negative, Urine Occult Blood 25 H, Urine Nitrite Negative, Urine Bilirubin Negative, Urine Urobilinogen 1 H, Ur Leukocyte Esterase 25 H, Urine RBC 0-5 SEEN, Urine WBC 0-5 SEEN, Ur Squamous Epith Cells 0-5 SEEN, Urine Bacteria 0 SEEN, Urine Mucus 0 SEEN 12/02/20 19:50: Urine Opiates Screen NEGATIVE, Urine Methadone Screen NEGATIVE, Ur Barbiturates Screen NEGATIVE, Ur Phencyclidine Scrn NEGATIVE, Ur Amphetamines Screen NEGATIVE, U Methamphetamin-MDMA NEGATIVE, U Benzodiazepines Scrn NEGATIVE, Urine Cocaine Screen NEGATIVE, U Cannabinoids Screen NEGATIVE, Ur Drug Screen Comment 12/02/20 : Lamotrigine Pending 12/03/20 05:10: Sodium 141, Potassium 4.1, Chloride 114 H, Carbon Dioxide 20.0 L, Anion Gap 7, BUN 14, Creatinine 0.61, Estim Creat Clear Calc 92.51, Est GFR (MDRD) Af Amer 139, Est GFR (MDRD) Non-Af 115, BUN/Creatinine Ratio 22.8 H, Glucose 97, Calcium 8.3 L, TSH 1.30 Current Medications Acetaminophen (Acetaminophen 325 Mg Tablet) 650 mg PO Q6H PRN PRN PRN Reason: Pain Score 1-10/Temp > 100.7 F Last Admin: 12/03/20 10:46 Dose: 650 mg Documented by: Al Hydroxide/Mg Hydroxide (Mag Hydrox/Al Hydrox/Simeth 30 Ml Udc) 30 ml PO Q6H PRN PRN PRN Reason: Gastric Burning Albuterol/Ipratropium (Ipratropium/Albuterol Sulfate 3 Ml Ampul.Neb) 3 ml INHALATION Q4H.RT PRN PRN Reason: SOB &/OR WHEEZING Last Admin: 12/03/20 04:15 Dose: 3 ml Documented by: Enoxaparin Sodium (Enoxaparin 40 Mg/0.4 Ml Syringe) 40 mg SC DAILY [facility] Last Admin: 12/03/20 10:48 Dose: 40 mg Documented by: Gabapentin (Gabapentin 100 Mg Capsule) 100 mg PO BIDCM [facility] Last Admin: 12/03/20 08:09 Dose: 100 mg Documented by: Levetiracetam 500 mg/ Sodium (Chloride) 105 mls @ 400 mls/hr IV Q12 [facility] Last Infusion: 12/03/20 11:21 Dose: Infused Documented by: Sodium Chloride () 1,000 mls @ 100 mls/hr IV .Q10H [facility] Last Admin: 12/03/20 08:07 Dose: 100 mls/hr Documented by: Lamotrigine (Lamotrigine 150 Mg Tablet) 150 mg PO DAILY [facility] Last Admin: 12/03/20 08:10 Dose: 150 mg Documented by: Lorazepam (Lorazepam 2 Mg/Ml Syringe) 2 mg IV Q6H PRN PRN PRN Reason: seizure, prolonged >2min Morphine Sulfate (Morphine 2 Mg/Ml Syringe) 2 mg IV Q3H PRN PRN PRN Reason: Pain Score 6-10 Nicotine (Nicotine 21 Mg Patch) 21 mg TD DAILY [facility] Last Admin: 12/03/20 10:47 Dose: 21 mg Documented by: Nitroglycerin (Nitroglycerin (Inpatient Use) 0.4 Mg Tab.Subl) 0.4 mg SUBLINGUAL Q5M PRN PRN Reason: CARDIAC/CHEST PAIN Ondansetron HCl (Ondansetron 4 Mg/2 Ml Vial) 4 mg IV Q8H PRN PRN PRN Reason: NAUSEA/VOMITING Last Admin: 12/03/20 10:48 Dose: 4 mg Documented by: Risperidone (Risperidone 0.5 Mg Tablet) 0.5 mg PO QHS [facility] Last Admin: 12/02/20 21:55 Dose: 0.5 mg Documented by: Risperidone (Risperidone 1 Mg Tablet) 1 mg PO DAILY [facility] Last Admin: 12/03/20 10:47 Dose: 1 mg Documented by: Senna/Docusate Sodium (Senna/Docusate Sodium 1 Tablet) 2 tablet PO BID PRN PRN PRN Reason: Constipation Sodium Chloride (0.9% Saline Lock 10 Ml Syringe) 10 - 40 ml IV UD PRN PRN Reason: SALINE FLUSH Tizanidine HCl (Tizanidine Hcl 2 Mg Tablet) 4 mg PO TID PRN PRN Reason: SPASMS Discharge Diet: No Restrictions Discharge Activity: Return to Normal Activity Call your doctor if you observe: Shortness of breath, Dizziness, Fainting spells, Chest pain Home Medications: Medications to take at Discharge Gabapentin [Neurontin] 100 mg PO TIDCM 08/13/20 Lamotrigine [Lamictal] 150 mg PO DAILY 08/13/20 Prazosin HCl 2 mg PO QHS 08/13/20 Risperidone 1 mg PO DAILY 08/13/20 Risperidone [Risperdal] 0.5 mg PO QHS 11/19/20 Naproxen 500 mg PO BID 12/02/20 Levetiracetam [Keppra] 500 mg PO BID #60 tab 12/03/20 Following Prescriptions Were Given to Patient: Levetiracetam [Keppra] 500 mg PO BID #60 tab Transmission Status: Pending to [employer] #30 Primary Care Physician: Toyin Beltran, PA [Primary Care Provider] - Please follow up with your Primary Care Physician in: 3-5 Days Please Follow Up With: Reed Varma MD When: 1 Week, or primary neurologist Disposition: Home Minutes spent on discharge:: 35 Patient Condition:: Stable Medical Necessity - Tobacco Use Smoking Status: Current every day smoker Tobacco Use: Cigarettes, Vapor Meaningful Use Info Meaningful Use Diagnoses (Choose all that apply): None applicable
[2020-12-07 16:48] LABS: Lamotrigine (Lamictal) Level 1.5 ug/mL (2.0-20.0)
== END 2020-12-03 14:20 | disposition home or self-care (01) ==
LOC: ED 18:29 → PCU 19:57
PROVIDERS: Admitting Provider Internal Medicine; Emergency Provider Emergency Medicine; PCP Physician Assistant; Visit Provider Internal Medicine
DX: G40.909 Epilepsy, unspecified, not intractable, without status epilepticus (principal); F17.210 Nicotine dependence, cigarettes, uncomplicated; R29.6 Repeated falls; Z79.899 Other long term (current) drug therapy; F31.9 Bipolar disorder, unspecified; F19.11 Other psychoactive substance abuse, in remission
CPT/HCPCS: 36415; 70551; 71046; 80048; 80053; 80307; 81001; 82542; 83605; 83735; 84100; 84443; 85025; 87426; 93005; 94640; 95819; 96361; 96365; 96366; 96372; 96375; 97162; 97166; 99218; 99251; 99283; J7030; A4216; G0378; G0463; J2405

== ENCOUNTER 2020-12-17 10:49 | Emergency (ER) | payer MEDICAID, SELFPAY ==
[2020-12-02 20:27] VITALS: BMI 22.8
[2020-12-17 10:54] VITALS: BP 95/71; PULSE 80; RESP 16; TEMP 36.6; O2SAT 99; BMI 23.0
--- NOTE | 2020-12-17 11:33 | ED.VIS.GEN ---
History of Present Illness Chief Complaint: Seizure Informant: Patient Onset: Today Context: Sudden Onset - While sitting in Bible study Timing: Intermittent - X1, Lasts - 2 or 3 minutes with subsequent postictal phase Quality: Tonic-clonic Location: All over Current Severity: - - gone Maximum Severity: Severe Worsened by: n/a Relieved by: n/a; spont resolution Associated Symptoms: now malaise, mild bifrontal retroorbital headache and light sensitivity Narrative: Patient with a history of seizure disorder, she states she was admitted for recurrent seizures here about a week or 2 ago, and placed on Keppra which she has been taking now for 1 week, 500 mg twice daily, no missed doses, last took it this morning. She had tonic-clonic seizure today. She was feeling well prior to this but did feel it coming on. She was amnestic to the event itself. She was in the middle of a bunch of bystanders who called 911. She feels fine and back to normal now except for some mild symptoms above which she typically has whenever she has a seizure. States that prior to her admission she had some mild weakness and tingling on the right side, that has been unchanged as it is now. She has a history of methamphetamine abuse, and states that is why she is staying in the recovery home that she currently lives in, and she has not used any drugs lately as a result. She denies feeling like she injured herself from the collapse out of the chair. She denies any recent head injuries or other injuries. - Past Medical History (1) Chronic seizure disorder with history of head trauma Status: Chronic (2) History of polysubstance use Status: Chronic Past Medical History - Allergies and Home Meds Allergies/Adverse Reactions: Allergies acetaminophen [From Vicodin] Adverse Reaction (Verified 12/17/20 10:58) Upset Stomach hydrocodone [From Vicodin] Adverse Reaction (Verified 12/17/20 10:58) Upset Stomach latex Adverse Reaction (Verified 12/17/20 10:58) Fever and skin rash Primary Care Physician: Toyin Beltran PA [Primary Care Provider] - Smoking Status: Current every day smoker - Family History Paternal Family History: Reports: Unknown Review of Systems General: Reports: Malaise. Denies: Chills, Fever, Sweats Eyes: Reports: - - Mild photosensitivity. Denies: Visual changes - bilaterally, Diplopia ENT: Denies: Rhinorrhea, Sore throat Cardiovascular: Denies: Chest pain, Palpitations Respiratory: Denies: Dyspnea, Cough, Dyspnea on exertion Gastrointestinal: Denies: Abdominal pain, Nausea, Vomiting, Diarrhea, Melena, Hematochezia Genitourinary: Denies: Dysuria, Hematuria, Frequency Musculoskeletal: Denies: Back pain, Extremity Pain Skin: Denies: Rash, Wounds Neurological: Reports: Headache, Weakness - See HPI, Parasthesia - See HPI Physical Exam Vital Signs/Narrative: Vital Signs Temp Pulse Resp BP Pulse Ox 12/17/20 10:54 97.9 F 80 16 95/71 99 Inital Vital Signs reviewed: Yes General: Well nourished, Well developed, No Acute Distress - Keenly alert, oriented x3, conversive in full sentences, well-appearing Head: Normocephalic, Atraumatic Eyes: Perrl, EOMI ENT: Moist mucous membranes, No rhinorrhea Neck: Supple, Nontender Cardiovascular: Regular rate, Regular rhythm, No murmurs Respiratory: No distress, CTA bilaterally, Chest nontender Abdomen: Soft, Nontender, Nondistended, Normal bowel sounds Back: Nontender, Normal Inspection Extremities: Nontender, No edema Skin: Normal color, No rash, No Trauma Neurological: Alert, Oriented x3, Cranial nerves II-XII grossly intact, Normal Sensation, Weakness - Mild right upper extremity and right lower extremity, 4+/5 strength. Baseline per patient. Psychological: Normal affect, Normal Mood Diagnostic/Tx/Re-eval - Medical Decision Making Patient was given an additional Keppra 500 mg in addition to the dose that she took this morning. She is scheduled to see neurology here, they have a clinic once a week and not today, so they are not available to consult but I think it would be reasonable to increase her Keppra to 750 milligrams twice daily. She wants to go home, I am fine with that, she understands to return for recurrent seizures/problems and not to drive. ED Disposition - Plan for ED Patient: Disposition: Home or Assisted Living Diagnosis: Breakthrough seizure, Chronic seizure disorder with history of head trauma Instructions: ED Seizure, Recurrent (Adult) Referrals: Reed Varma MD [STAFF PHYSICIAN] - Keep Gabbie appointment (Or sooner if able) Additional Instructions: Increase your Keppra to 750 mg twice daily, starting tonight. This would be 1.5 pills, twice a day.
[2020-12-17] MEDS: levETIRAcetam 500 MG Tablet PO (12:13)
--- NOTE | 2020-12-17 12:14 | ED.RN ---
pt refuses to stay for meal. requests paperwork to leave. xochitl given pt ambulatory home
== END 2020-12-17 12:16 | disposition home or self-care (01) ==
PROVIDERS: Emergency Provider Emergency Medicine; PCP Physician Assistant
DX: G40.909 Epilepsy, unspecified, not intractable, without status epilepticus (principal); Z79.899 Other long term (current) drug therapy; F17.200 Nicotine dependence, unspecified, uncomplicated
CPT/HCPCS: 99284

== ENCOUNTER 2020-12-19 18:20 | Emergency (ER) | payer MEDICAID, SELFPAY ==
[2020-12-19 18:21] VITALS: BP 103/80; PULSE 80; RESP 20; TEMP 36.4; O2SAT 100; BMI 24.2
--- NOTE | 2020-12-19 18:39 | ED.DCSUM_ITS ---
- ER Visit Summary Date of Service: 12/19/20 Chief Complaint: Acute recurrent seizure History of Present Illness: The patient is a 40 F history of seizure disorder, hepatitis C and history of drug abuse. Patient has a known history of seizures currently is on Keppra. Recently had her dose increased. Was admitted to [facility] about 2 to 3 weeks ago at that time had a negative CAT scan, negative MRI and unremarkable EEG. She sees a neurologist with the [facility] is going to follow-up with him as an outpatient. Today she had a seizure. Was lying down did not fall did not get injured. She does not feel ill. She does not have a headache or fever. Physical Examination: Well-appearing middle-aged female. Vital signs stable afebrile. HEENT exam unremarkable. No signs of trauma to face or scalp. Pupils round reactive light. No facial droop. Normal speech. Neck nontender no meningismus. Lungs clear to auscultation bilaterally. Heart regular rhythm rate about 80 no murmur. Chest were nontender. Abdomen soft nontender. Patient is moving all 4 extremities. Neurovascular intact. Equal symmetrical palliative care coordinator strength. Dorsi plantarflexion intact. Neurologically patient is awake alert. Acting appropriately. Answering questions and following commands normally. NIH score is 0. Test Results: None. I did review the patient's recent MRI, CAT scan, EEG and labs from about 3 weeks ago. All of which were unremarkable. Emergency Department Course and Treatment: Patient knows she is an extensive work-up here. She needs her medications adjusted by her neurologist. She wants to be discharged back to the rehab facility she is in. Treatment Plan: Continue her current seizure medications. Follow-up with her neurologist. Disposition: Discharge Impression: Acute, recurrent seizure with a history of seizure disorder History of prior polysubstance abuse History hepatitis C This note was generated with [employer] software. It may contain incorrect words, spelling, and punctuation that were not noted in review of the chart prior to signing ED Disposition - Plan for ED Patient: Referrals: Toyin Beltrna PA [Primary Care Provider] -
--- NOTE | 2020-12-19 18:46 | DCINST.ED_ITS ---
ED Disposition - Plan for ED Patient: Disposition: Home or Assisted Living Instructions: ED Seizure, Recurrent (Adult) Referrals: Toyin Beltran PA [Primary Care Provider] - As soon as possible Additional Instructions: Call and follow-up with your [facility] neurologist to see if they want to adjust her medications.
[2020-12-19 18:54] VITALS: BP 104/72; RESP 18
== END 2020-12-19 18:50 | disposition home or self-care (01) ==
LOC: ED 18:48
PROVIDERS: Emergency Provider Emergency Medicine; PCP Physician Assistant
DX: G40.909 Epilepsy, unspecified, not intractable, without status epilepticus (principal); Z86.19 Personal history of other infectious and parasitic diseases; Z87.898 Personal history of other specified conditions; Z79.899 Other long term (current) drug therapy; F17.200 Nicotine dependence, unspecified, uncomplicated
CPT/HCPCS: 99284; A4216

== ENCOUNTER 2020-12-26 11:01 | Emergency (ER) | payer MEDICAID, SELFPAY ==
[2020-12-25 12:55] VITALS: BMI 24.2
[2020-12-26 11:02] VITALS: BP 113/74; PULSE 80; RESP 14; TEMP 36.4; O2SAT 98; BMI 24.4
--- NOTE | 2020-12-26 11:34 | ED.DCSUM_ITS ---
- ER Visit Summary Date of Service: 12/26/20 Chief Complaint: [Seizure] History of Present Illness: The patient is a 40 F [presents to the emergency department with complaint of a seizure that occurred this morning. Patient is currently at a [facility] and recovering from methamphetamines. P venita states that she has been sober and has not used since September 2020. Patient had a whole body tonic-clonic like seizure that lasted about 2 to 3 minutes. Patient was awake and aware of this which is unusual for her. Patient does have seizure disorder. Patient states she has been compliant with her seizure meds. She is on Neurontin, Lamictal, and Keppra. Patient states that 3 weeks ago she was admitted to our facility for seizure and at that time had an EEG and MRI of her brain and had her medication doses increased. Patient is to follow-up with a neurologist but does not have the appointment for several weeks. Patient believes that the seizure may have been stress related as she has been under increased stress of late and she does have history of bipolar disorder and anxiety. Currently complaining of a headache as well as some numbness and tingling to the right arm and right leg. Patient chronically has numbness and tingling and pain to the right arm and leg after seizures.] Patient states that she is not been sleeping well at night because she has been very anxious and stressed. Physical Examination: [HEENT-PERRLA, EOMI. Cranial nerves II through XII grossly intact. TMs clear. Mucous membranes moist. No adenopathy. Cardiovascular-regular rate and rhythm without murmur or ectopy Lungs-clear to auscultation, chest wall stable without crepitus or subcu emphysema Abdomen-normoactive bowel sounds, soft, nontender, no rebound or rigidity, no peritoneal signs. Neuro jrpt-revmbt-wlow and heel baca testing within normal limits, negative Romberg, negative for drift, fundi benign Extremities-intact ?4, normal range of motion, normal pulses, atraumatic] Test Results: [CBC with it was normal. Chemistries unremarkable. LFTs normal. Urinalysis normal. hCG was negative. Toxicology screen was negative.] Emergency Department Course and Treatment: [IV line established. Patient was given Ativan 1 mg IV.] Treatment Plan: [Patient was given a prescription for few Ativan as needed for anxiety. At this point the seizure is different than normal and that she was awake throughout it and suspect may be more anxiety related. Patient symptoms improved after Ativan here. Patient recently had adjustment in her seizure meds therefore we will leave those as they are until she follows up with neurology.] Disposition: [Discharged home in stable condition] Impression: [Recurrent seizure Anxiety] This note was generated with [employer] dictation software. It may contain incorrect words, spelling, and punctuation that were not noted in review of the chart prior to signing ED Disposition - Plan for ED Patient: Referrals: Toyin Beltran, PA [Primary Care Provider] -
[2020-12-26] MEDS: 0.9% Normal Saline 1,000 ML 150 ML IV (11:35)
[2020-12-26] MEDS: LORazepam 2 MG/ML Syringe 1 MG IV (11:35)
[2020-12-26 12:04] LABS: Absolute Lymphocyte Count 2.08 X10^3/uL (0.83-4.51); Absolute Neutrophil Count 3.9 X10^3/uL (2.0-7.7); Basophil# 0.04 X10^3/uL; Basophil% 0.6 % (0-1); Eosinophil# 0.08 X10^3/uL; Eosinophils% 1.2 % (0-5); Hematocrit 40.1 % (37-47); Hemoglobin 13.7 g/dL (12.0-15.0); Lymphocyte # 2.08 X10^3/ul (4.0); Lymphocyte % 32.3 % (19-41); Mean Corp Hgb Conc 34.2 g/dL (32-36); Mean Corpuscular Hgb 30.8 pg (27.0-32.0); Mean Corpuscular Volume 90.1 fL (81-99); Mean Platelet Vol. 9.6 fl (6.2-12.0); Monocyte# 0.36 X10^3/uL; Monocyte% 5.6 % (0-10); NRBC Flagged by Analyzer 0 % (0-5); Neutrophil # 3.86 X10^3/uL (2.7-7.7); Platelet Count 286 K/mm3 (150-450); RBC Distribution Width CV 11.5 % (11.6-14.6); RBC Distribution Width SD 37.8 fl (35.1-43.9); Red Blood Count 4.45 M/mm3 (4.2-5.4); White Blood Count 6.4 K/mm3 (4.4-11.0)
[2020-12-26 12:14] LABS: Bacteria 0 SEEN /hpf (None Seen); Mucous, Urine 0 SEEN /hpf (<or=2+); Red Blood Cells-Urine 0 SEEN /hpf (0-5); Squamous Epithelial Cells - UA 0 SEEN /hpf (5-10); White Blood Cells 0 SEEN /hpf (0-5)
[2020-12-26 12:16] LABS: Color, Urine Straw (Yellow); Glucose, Dipstick Normal (Normal); Ketone-Dipstick Negative (Negative); Leukocyte Esterase-Dipstick Negative /ul (Negative); Nitrite-Dipstick Negative (Negative); Occult Blood-Urine Negative /ul (Negative); Protein-Dipstick Negative (Negative); Specific Gravity, Urine 1.005 (1.002-1.030); Urine Bilirubin Dipstick Negative (Negative); Urine Clarity Clear (Clear); Urine Urobilinogen Normal (Normal)
[2020-12-26 12:24] LABS: ALB/GLOB Ratio 1.5 RATIO (0.9-2.4); AST(SGOT) 19 U/L (15-37); Alanine Aminotransfer ALT/SGPT 30 U/L (13-56); Albumin, Serum 5.1 g/dL (3.2-5.0); Alkaline Phosphatase 63 U/L (45-117); Anion Gap 5 (5-15); BUN 16 mg/dL (7-18); BUN/Creat Ratio 20.8 RATIO (10-20); Calcium,Total 9.4 mg/dL (8.5-10.1); Chloride 107 mmol/L (98-107); Creatinine, Serum 0.77 mg/dL (0.55-1.02); EST Glomerular Filtration Rate 88 mL/min (>60); Est Glom Filt Rate - Afr Amer 107 mL/min (>60); Estimated Creatinine Clearance 73.29 ml/min; Globulin 3.3 g/dL (2.2-4.2); Glucose 72 mg/dL (74-106); Potassium 3.9 mmol/L (3.5-5.1); Protein, Total 8.4 g/dL (6.4-8.2); Sodium Level 138 mmol/L (136-145)
[2020-12-26 12:27] VITALS: BP 103/72; PULSE 60; RESP 18; O2SAT 97
[2020-12-26 12:28] LABS: Amphetamine Urine VISTA NEGATIVE (<1000 ng/mL); Barbiturate Urine VISTA NEGATIVE (< 200 ng/mL); Benzodiazepine Urine VISTA NEGATIVE (< 200 ng/mL); Cocaine Urine VISTA NEGATIVE (< 300 ng/mL); Ecstacy Urine VISTA NEGATIVE (< 500 ng/mL); Methadone Urine VISTA NEGATIVE (< 300 ng/mL); PCP Urine VISTA NEGATIVE (< 25 ng/mL); THC Urine VISTA NEGATIVE (< 50 ng/mL); Vista UDS pH Range 6
[2020-12-26 12:28] LABS: Internal QC Validated? YES +Cl - CLEAR BKGD; Pregnancy, Serum, hCG Quali. NEGATIVE Negative
--- NOTE | 2020-12-26 12:53 | DCINST.ED_ITS ---
ED Disposition - Plan for ED Patient: Instructions: ED Seizure, Recurrent (Adult), ED Anxiety Reaction Prescriptions: Lorazepam [Ativan] 1 mg PO TID PRN #10 tablet PRN Reason: Anxiety Transmission Status: Sent to [facility] Referrals: Toyin Beltran PA [Primary Care Provider] - 3-5 Days
== END 2020-12-26 13:34 | disposition home or self-care (01) ==
LOC: ED 11:42
PROVIDERS: Emergency Provider Emergency Medicine; PCP Physician Assistant
DX: G40.909 Epilepsy, unspecified, not intractable, without status epilepticus (principal); F41.9 Anxiety disorder, unspecified; F31.9 Bipolar disorder, unspecified; E78.00 Pure hypercholesterolemia, unspecified; Z79.899 Other long term (current) drug therapy; Z72.0 Tobacco use
CPT/HCPCS: 80053; 80307; 81001; 84703; 85025; 96361; 96374; 99285; J7030

== ENCOUNTER 2021-03-04 15:04 | Emergency (ER) | payer MEDICAID, SELFPAY ==
[2021-02-24 15:43] VITALS: BMI 22.8
[2021-03-04 15:05] VITALS: BP 101/70; PULSE 88; RESP 17; TEMP 36.8; O2SAT 98; BMI 21.1
== END 2021-03-04 16:03 | disposition left against medical advice (07) ==
LOC: ED 16:40
PROVIDERS: PCP Physician Assistant
DX: Z53.21 Procedure and treatment not carried out due to patient leaving prior to being seen by health care provider (principal)

== ENCOUNTER 2021-03-23 17:32 | Emergency (ER) | payer MEDICAID, SELFPAY ==
[2021-03-23 17:34] VITALS: BP 97/72; PULSE 79; RESP 14; TEMP 36.9; O2SAT 96; BMI 23.3
--- NOTE | 2021-03-23 17:38 | ED.RN ---
PT REPORTS LAST SEIZURE WAS IN DECEMBER, HAS BEEN OFF KEPPRA FOR TWO MONTHS. REMAINS ON LAMICTAL WITHOUT MISSING DOSES IS ON TIS FOR MENTAL HEALTH ALSO PER PT.
--- NOTE | 2021-03-23 17:53 | EX.ED.DYSGE1 ---
HPI History of Present Illness Chief Complaint: Seizure Informant: patient Onset/Context/Timing Onset: Today Context: Sudden Onset Timing: Lasts (1 minute) Quality: Shaking and lightheaded Location: Generalized Worsened by: Nothing Relieved by: Nothing Narrative Narrative: Patient presents with a seizure that occurred today. Patient states she has a history of seizures. Patient states she has been evaluated multiple times for her seizures. Patient states they are unable to find a cause of her seizures. Patient states she is on Lamictal that is prescribed by her psychiatrist. Patient states she did feel an aura prior to her seizure today where she felt lightheaded and blurred vision. Patient states she ran out of her Keppra 2 months ago. Patient states she has been unable to see her neurologist for refill of her Keppra. [facility] Medical History Anxiety and depression Asthma Bipolar disorder Chronic back pain Chronic seizure disorder with history of head trauma Endometriosis Factor XIII deficiency disease Hepatitis B Hepatitis C History of substance abuse HPV (human papilloma virus) infection Hyperlipidemia Methamphetamine dependence in remission Nicotine dependence PTSD (post-traumatic stress disorder) Seizure Seizure disorder Syncope Vertigo Home Medications lamotrigine 150 mg PO DAILY 08/13/20 [History Last Taken 12/01/20] fluticasone propionate 50 mcg/actuation nasal spray,suspension 2 spray INTRANASAL DAILY ml 12/22/20 [History Last Taken Unknown] naproxen 500 mg tablet 500 mg PO BID PRN 12/22/20 [History Last Taken Unknown] risperidone 0.5 mg tablet 0.5 mg PO BID tab 12/22/20 [History Last Taken Unknown] trazodone 50 mg tablet 150 mg PO QHS tab 12/22/20 [History Last Taken Unknown] Allergy/AdvReac Type Severity Reaction Status Date / Time acetaminophen [From Vicodin] AdvReac Upset Verified 03/23/21 17:39 Stomach hydrocodone [From Vicodin] AdvReac Upset Verified 03/23/21 17:39 Stomach latex AdvReac Fever and Verified 03/23/21 17:39 skin rash Family History Mother COPD (chronic obstructive pulmonary disease) Cancer lung Breast cancer Heart disease Sister Cancer cervical Brother Asthma COPD (chronic obstructive pulmonary disease) Grandmother Breast cancer Grandfather Cancer testicular Surgical History History of History of dilatation and curettage History of tubal ligation Social History Smoking Status: Current every day smoker tobacco type: cigarettes alcohol intake: never substance use type: does not use, former substance user, crack/cocaine and methamphetamine caffeine: Yes Type: coffee Number of servings: 4 ROS ROS ED Constitutional Constitutional ED: Denies chills or fever(s) Eyes Eyes: Denies blurry vision or change in vision ENT ENT ED: Denies rhinorrhea or sore throat Cardiovascular Cardiovascular: Denies chest pain or palpitations Respiratory/Chest Respiratory/Chest: Denies cough or dyspnea Gastrointestinal Gastrointestinal: Reports nausea; Denies vomiting Genitourinary Genitourinary ED: Denies dysuria or hematuria Musculoskeletal Musculoskeletal: Reports back pain and neck pain Integumentary Denies abscess or rash Neurologic Neurologic: Denies headache(s) or weakness Allergic/Immunologic Allergic/Immunologic ED: Denies mouth swelling or urticaria EXAM Physical Exam Const Vital Signs: 03/23/21 17:34 Temperature 98.4 F Temperature Source Oral Pulse Rate 79 Respiratory Rate 14 Blood Pressure 97/72 Blood Pressure Mean 80 Pulse Ox 96 Oxygen Delivery Method Room Air Positive well nourished and well developed General Appearance ED: well developed HEENT Reports moist mucous membranes normocephalic and atraumatic Neck supple and no JVD Resp normal respiratory effort and clear to auscultation bilaterally Cardio regular rate, regular rhythm and no murmurs Rate: regular rate Rhythm: regular rhythm GI normal to inspection, nondistended, normoactive bowel sounds, non-tender and non-distended Auscultation: normoactive bowel sounds Palpation: soft Extremity normal to inspection General Extremety ED: Negative for edema or tenderness General Extremity: Negative for edema Neuro oriented x3, CN's II-XII intact bilaterally and no sensory deficits noted Sensorium / Orientation: alert Motor Exam: strength 5/5 throughout Psych mental status grossly normal Skin no rashes or lesions noted Rashes: no rashes MDM MDM MDM Narrative Medical decision making narrative: A Lamictal level was ordered and is pending. Patient does not want any further testing. Patient states they have ordered several tests in the past which have all come back normal. Patient states she feels better and wants to go home. Patient was instructed to follow-up with her primary care physician in 3 to 5 days. Patient was instructed to return if worse in any way. Patient understood and was agreeable with the plan. All questions were answered. Discharge Plan Triage Chief Complaint: Seizure ED Provider: Douglas Adan Dx/Rx/DC Orders Clinical Impression: Seizure disorder Instructions: ED Seizure, Recurrent (Adult) Prescriptions: No Action fluticasone propionate 50 mcg/actuation spray,suspension 2 spray INTRANASAL DAILY RF: 0 trazodone 50 mg tablet 150 mg PO QHS RF: 0 lamotrigine 150 MG tablet 150 mg PO DAILY RF: 0 risperidone 0.5 mg tablet 0.5 mg PO BID RF: 0 naproxen 500 mg tablet 500 mg PO BID PRN (Reason: pain) RF: 0 Primary Care Provider: Toyin Beltran Referrals: Toyin Beltran PA [Primary Care Provider] - 3-5 Days Disposition Disposition: Home, self care
[2021-03-26 16:25] LABS: Lamotrigine (Lamictal) Level 1.8 ug/mL (2.0-20.0)
== END 2021-03-23 18:19 | disposition home or self-care (01) ==
LOC: ED 18:07
PROVIDERS: Emergency Provider Emergency Medicine; PCP Physician Assistant
DX: G40.909 Epilepsy, unspecified, not intractable, without status epilepticus (principal); F41.9 Anxiety disorder, unspecified; J45.909 Unspecified asthma, uncomplicated; F31.9 Bipolar disorder, unspecified; N80.9 Endometriosis, unspecified; D68.2 Hereditary deficiency of other clotting factors; G89.29 Other chronic pain; E78.5 Hyperlipidemia, unspecified; F43.10 Post-traumatic stress disorder, unspecified; Z86.19 Personal history of other infectious and parasitic diseases; Z79.899 Other long term (current) drug therapy; F17.210 Nicotine dependence, cigarettes, uncomplicated
CPT/HCPCS: 36415; 82542; 99283

== ENCOUNTER → 2021-05-11 08:13 | Outpatient (CLI) | payer MEDICAID, SELFPAY ==
[2021-02-24 15:43] VITALS: BMI 22.8
--- NOTE | 2021-05-11 08:25 | ECHOD_ITS ---
Reason For Study: Syncope Procedure This was a 2D Doppler, Color Flow transthoracic echocardiogram. Exam performed in department. Left Ventricle Normal LV size. Left ventricular systolic function is normal. The estimated ejection fraction is 55 %. No regional wall motion abnormalities noted. Right Ventricle Normal RV size. Normal systolic function. Atria Normal left atrium. Normal right atrium. Mitral Valve Normal mitral valve. Trivial mitral valve insufficiency. Tricuspid Valve Normal tricuspid valve. Aortic Valve Bicuspid aortic valve. Pulmonic Valve Normal pulmonic valve. Great Vessels Normal aortic root. The pulmonary artery is normal size. Normal inferior vena cava. Pericardium/Pleural No pericardial effusion. MMode/2D Measurements & Calculations LVIDd: 4.5 cm IVSd: 0.69 cm LVOT diam: 2.0 cm LVIDs: 3.0 cm LVPWd: 0.81 cm LVOT area: 3.0 cm2 RVDd: 2.4 cm FS: 33.4 % Ao root diam: 3.8 cm LAV(MOD-bp): 21.1 ml LVAd ap4: 27.4 cm2 LAV(MOD-bp) Indexed: 13.8 ml/m2 LVLd ap4: 7.4 cm LAV(MOD-sp2): 21.2 ml EDV(MOD-sp4): 84.8 ml LAV(MOD-sp4): 19.9 ml EDV(sp4-el): 86.7 ml LVAs ap4: 17.4 cm2 LVLs ap4: 6.4 cm ESV(MOD-sp4): 40.3 ml ESV(sp4-el): 40.1 ml EF(MOD-sp4): 52.5 % EF(sp4-el): 53.7 % LVAd ap2: 26.8 cm2 SV(MOD-sp4): 44.5 ml SV(MOD-sp2): 45.9 ml LVLd ap2: 7.6 cm EDV(MOD-sp2): 82.6 ml EDV(sp2-el): 80.9 ml LVAs ap2: 17.0 cm2 LVLs ap2: 6.7 cm ESV(MOD-sp2): 36.6 ml ESV(sp2-el): 36.5 ml EF(MOD-sp2): 55.6 % SV(sp4-el): 46.6 ml LA dimension(2D): 2.1 cm LA A4 area: 10.5 cm2 RA A4 area: 10.2 cm2 Doppler Measurements & Calculations MV E max lexa: 95.2 cm/sec Lat Peak E' Lexa: 12.5 cm/sec Med Peak E' Lexa: 9.8 cm/sec MV A max lexa: 49.5 cm/sec E/E' lat: 7.6 E/E' med: 9.7 MV E/A: 1.9 Ao V2 max: 168.7 cm/sec LV V1 max: 99.6 cm/sec SV(LVOT): 69.3 ml Ao max P.4 mmHg LV V1 max P.0 mmHg Ao V2 mean: 123.4 cm/sec LV V1 mean P.3 mmHg Ao mean P.6 mmHg LV V1 mean: 73.5 cm/sec Ao V2 VTI: 38.9 cm LV V1 VTI: 23.1 cm NONI(I,D): 1.8 cm2 NONI(V,D): 1.8 cm2 PA V2 max: 78.3 cm/sec TR max lexa: 163.9 cm/sec TR max P.7 mmHg ECHO/Echo Complete Interpretation Summary Normal LV size. Left ventricular systolic function is normal. The estimated ejection fraction is 55 %. Bicuspid aortic valve. Ordering Physician: Cuba Holloway Referring Physician: Toyin Beltran Performed By: Kenisha Milner RDCS
[2021-05-11 08:29] LABS: Hematocrit 35.5 % (37-47); Hemoglobin 12.2 g/dL (12.0-15.0); Mean Corp Hgb Conc 34.4 g/dL (32-36); Mean Corpuscular Hgb 31.4 pg (27.0-32.0); Mean Corpuscular Volume 91.3 fL (81-99); Mean Platelet Vol. 9.7 fl (6.2-12.0); Platelet Count 271 K/mm3 (150-450); RBC Distribution Width CV 11.7 % (11.6-14.6); RBC Distribution Width SD 38.8 fl (35.1-43.9); Red Blood Count 3.89 M/mm3 (4.2-5.4); White Blood Count 6.3 K/mm3 (4.4-11.0)
--- NOTE | 2021-05-11 16:56 | TILTTABLE_ITS ---
Staff Staff: - Physician Tilt Table Report Patient's Physicians Primary Care Physician: Toyin Beltran Scientific Research Associate: Cuba Holloway Indications/Diagnosis: Recurrent syncopal episodes Procedure Comments: The patient was brought to the noninvasive lab. Initial blood pressure was noted to be 74/56 mmHg systolic and patient had complained of having passed out in the morning. It was therefore decided to abandon the test. The patient was infused with 1 L of normal saline. Post infusion the blood pressure was noted to be 96/64 mmHg with no complaints of dizziness. The patient was discharged for outpatient follow-up. Summary: Resting hypotension precluding tilt table testing.
== END ==
PROVIDERS: PCP Physician Assistant; Referring Provider Internal Medicine Cardiovascular Disease; Visit Provider Internal Medicine Cardiovascular Disease
DX: R55 Syncope and collapse (principal); R42 Dizziness and giddiness
CPT/HCPCS: 36415; 85027; 93306; J7040; A4216

== ENCOUNTER 2021-08-11 17:08 | Emergency (ER) | payer MEDICAID, SELFPAY ==
[2021-08-11 17:10] VITALS: BP 82/66; PULSE 80; RESP 16; TEMP 35.9; O2SAT 98; BMI 24.5
[2021-08-11] MEDS: 0.9% Normal Saline 1,000 ML 1000 ML IV (18:32)
[2021-08-11 18:35] LABS: Absolute Lymphocyte Count 2.42 X10^3/uL (0.83-4.51); Absolute Neutrophil Count 2.4 X10^3/uL (2.0-7.7); Basophil# 0.04 X10^3/uL; Basophil% 0.7 % (0-1); Eosinophil# 0.18 X10^3/uL; Eosinophils% 3.2 % (0-5); Hematocrit 38.8 % (37-47); Hemoglobin 13.4 g/dL (12.0-15.0); Lymphocyte # 2.42 X10^3/ul (0.83-4.51); Lymphocyte % 43.5 % (19-41); Mean Corp Hgb Conc 34.5 g/dL (32-36); Mean Corpuscular Hgb 31.3 pg (27.0-32.0); Mean Corpuscular Volume 90.7 fL (81-99); Mean Platelet Vol. 9.8 fl (6.2-12.0); NRBC Flagged by Analyzer 0 % (0-5); Neutrophil # 2.39 X10^3/uL (2.7-7.7); Neutrophil % 43.1 % (47-70); Platelet Count 299 K/mm3 (150-450); RBC Distribution Width CV 11.2 % (11.6-14.6); Red Blood Count 4.28 M/mm3 (4.2-5.4); White Blood Count 5.6 K/mm3 (4.4-11.0)
--- NOTE | 2021-08-11 18:45 | RAD_ITS ---
INDICATION: Productive cough EXAMINATION/TECHNIQUE: X-RAY - XR Chest 1 View COMPARISON: 12/02/2020. FINDINGS: The lungs are clear. The cardiomediastinal silhouette is unremarkable. No pleural effusion or pneumothorax. No acute osseous abnormalities. RAD/Chest 1 View (Portable) IMPRESSION: No acute radiographic abnormalities. Electronically Signed: Santy Church MD at 18:56 EDT Tel , Service support ,
--- NOTE | 2021-08-11 18:52 | EX.ED.VIS.UR ---
HPI HPI - URI History of Present Illness Chief Complaint: Shortness of Breath Informant: patient Onset/Context/Timing Onset: Weeks (Onset of illness 2 weeks ago) Context: Sudden Onset Timing: Continuous and Waxes and wanes Quality: Nasal congestion, productive cough yellow sputum Location: Upper respiratory Current Severity: Mild Maximum Severity: Moderate Worsened by: Not Worsened By Swallowing, Eating Solids and Drinking Liquids Relieved by: Not Relieved By Tylenol and NSAIDs Associated Symptoms Associated Symptoms: Positive for Nasal Congestion, Myalgias, Nausea, Diarrhea, Shortness of Breath and Productive Cough; Negative for Headache, Sinus Pressure, Vomiting, Chest Pain, Nonproductive cough and Hemoptysis Narrative Narrative: Patient is a 40-year-old woman who smokes 1 pack/day presents because of lightheadedness, productive cough of yellow-colored sputum. Nasal congestion diarrhea. Onset of illness 2 weeks ago. She states she has not been out of her house in 2 weeks. The only time she went out of her house to fill the prescription that was read by her doctor. Fairly she was prescribed cephalexin. She reports subjective fever. She has also had intermittent rigors. She does report intermittent headache. Denies photophobia, neck pain or neck stiffness. Denies ringing or ears decreased hearing. She denies sore throat. Denies loss of taste or smell. She denies chest discomfort. She denies black or maroon-colored stool. She has not noticed any blood or mucus in her diarrhea. She does report lightheadedness. She states her blood pressure that was documented in triage is much lower than normal. Pressure was 82/66. She states she does not feel well. Prior similar symptoms: Yes Recent Illness/Hospitalization: Yes [facility] ED Constitutional Constitutional ED: Reports chills, fever(s) and subjective; Denies sweats or weight loss Eyes Eyes: Denies blurry vision, change in vision or diplopia ENT ENT ED: Denies ear pain, rhinorrhea or sore throat Cardiovascular Cardiovascular: Denies chest pain, orthopnea, palpitations or paroxysmal nocturnal dyspnea Respiratory/Chest Respiratory/Chest: Reports cough, dyspnea and sputum; Denies dyspnea on exertion, orthopnea or paroxysmal nocturnal dyspnea Gastrointestinal Gastrointestinal: Reports diarrhea and nausea; Denies abdominal pain, constipation, melena or vomiting Genitourinary Genitourinary ED: Denies dysuria, hematuria or urinary frequency Musculoskeletal Musculoskeletal: Reports arthralgias and myalgias; Denies back pain or neck pain Integumentary Denies rash Neurologic Neurologic: Reports headache(s) and weakness; Denies paresthesias Endocrine Endocrinology: Denies polydipsia, polyphagia or polyuria Hematologic/Lymphatic Hematologic/Lymphatic: Denies easy bleeding or easy bruising PFSH PFSH Medical History Anemia Anxiety and depression Arthritis Asthma Back problem Bipolar disorder Chronic back pain Chronic bronchitis Chronic seizure disorder with history of head trauma Endometriosis Factor XIII deficiency disease Hepatitis B Hepatitis C History of substance abuse History of UTI HPV (human papilloma virus) infection Hyperlipidemia Methamphetamine dependence in remission Nicotine dependence PTSD (post-traumatic stress disorder) Seizure Seizure disorder Syncope Vertigo Home Medications fluticasone propionate 50 mcg/actuation nasal spray,suspension 2 spray INTRANASAL DAILY ml 12/22/20 [History Last Taken Unknown] lamotrigine 150 mg tablet 150 mg PO BID #60 tab 07/01/21 [Rx Last Taken Unknown] nabumetone 500 mg tablet 500 mg PO BID PRN tab 07/01/21 [History Last Taken Unknown] risperidone 1 mg tablet 1 mg PO BID tab 07/01/21 [History Last Taken Unknown] tizanidine 4 mg tablet 4 mg PO Q8H PRN tab 07/01/21 [History Last Taken Unknown] trazodone 150 mg tablet 150 mg PO QHS PRN tab 07/01/21 [History Last Taken Unknown] lamotrigine 150 mg PO QAM 08/11/21 [History Last Taken Unknown] Allergy/AdvReac Type Severity Reaction Status Date / Time acetaminophen [From Vicodin] AdvReac Upset Verified 08/11/21 17:10 Stomach hydrocodone [From Vicodin] AdvReac Upset Verified 08/11/21 17:10 Stomach latex AdvReac Fever and Verified 08/11/21 17:10 skin rash Family History Mother COPD (chronic obstructive pulmonary disease) Cancer lung Breast cancer Heart disease Seizures Sister Cancer cervical Brother Asthma COPD (chronic obstructive pulmonary disease) Seizures Grandmother Breast cancer CVA (cerebral vascular accident) Grandfather Cancer testicular Aunt CVA (cerebral vascular accident) Surgical History History of History of dilatation and curettage History of tubal ligation Social History (Updated 08/11/21 @ 18:[address] Bill Santana MD) household members: spouse Smoking Status: Current every day smoker tobacco type: cigarettes Tobacco: How many years used: 25 Electronic Cigarette Use: not used second hand exposure: Yes alcohol intake: former substance use type: does not use, former substance user Date of last use: 02/20/21, crack/cocaine and methamphetamine caffeine: Yes Type: coffee Number of servings: 4 EXAM Physical Exam Const Vital Signs: 08/11/21 17:10 08/11/21 18:28 08/11/21 19:08 Temperature 96.7 F L Temperature Source Temporal Pulse Rate 80 62 Respiratory Rate 16 Respiratory Effort Normal Respiratory Depth Normal Respiratory Pattern Normal Blood Pressure 82/66 L 109/74 Blood Pressure Mean 71 85 Pulse Ox 98 98 Oxygen Delivery Method Room Air Room Air Positive well nourished and well developed General Appearance ED: well developed, NAD and other Patient appears ill, but does not appear toxic. ; Negative for pallor HEENT Reports TM's clear; Denies moist mucous membranes or dry mucous membranes normocephalic and atraumatic Face and Sinus: Negative for maxillary instability or facial tenderness External Ear: external ears normal, mastoids normal and no preauricular adenopathy External Auditory Canal: EAC's normal Tympanic Membrane ED: Yes TM's clear, TM normal on the right and TM normal on the left Mouth ED: No dry mucous membranes Mouth: No dry mucous membranes Throat: Negative for posterior oropharynx normal or posterior oropharynx abnormal Eyes PERRL and EOMs intact bilaterally General Eye ED: Negative for pale conjunctiva or scleral icterus Neck no lymphadenopathy, supple, no meningeal signs and no JVD Resp normal respiratory effort and clear to auscultation bilaterally Cardio S1 normal heart sound, S2 normal heart sound and no murmurs Rate: regular rate Rhythm: regular rhythm Bruits: Negative for carotid bruit or abdominal aortic bruit GI non-tender, non-distended and no masses Auscultation: hypoactive bowel sounds Palpation: soft Extremity normal to inspection and full ROM General Extremety ED: Negative for cyanosis or tenderness General Extremity: Negative for cyanosis Neuro oriented x3 and CN's II-XII intact bilaterally Sensorium / Orientation: alert Psych mental status grossly normal Skin General Skin Exam: Negative for jaundice or pallor Lesions: no lesions Rashes: no rashes MDM MDM MDM Narrative Medical decision making narrative: Patient presents with hypotension. Concerned this may represent pneumonia with sepsis. Sepsis work-up was undertaken. She received a liter fluid. Because she has respiratory and GI symptoms Covid test was obtained as well. We will limit fluids until Covid test returns negative. Chest x-ray interpretation: Single view portable chest x-ray reveals normal cardiac silhouette and size. Mediastinum is unremarkable. There is chronic changes noted. Is no infiltrate or effusion noted. Also structures are unremarkable. Patient's pressure did respond to fluid bolus. Suspect that she is dehydrated. Since she is a smoker suspect this is a bronchitis. At this point symptoms no evidence of pneumonia on the chest x-ray and white count is normal antibiotics were not prescribed. Lab Data Attestation: I reviewed the patient's lab results. Lab results narrative: CBC and differential unremarkable. H&H is normal. Electrolyte panel is normal. Lactate is normal. BUN to creatinine ratio is normal. Labs: Laboratory Results - last 24 hr 08/11/21 08/11/21 08/11/21 18:20 18:20 18:20 WBC 5.6 RBC 4.28 Hgb 13.4 Hct 38.8 MCV 90.7 MCH 31.3 MCHC 34.5 RDW Std Deviation 37.0 RDW Coeff of Main 11.2 L Plt Count 299 MPV 9.8 Immature Gran % (Auto) 0.500 Neut % (Auto) 43.1 L Lymph % (Auto) 43.5 H [place] % (Auto) 9.0 Eos % (Auto) 3.2 Baso % (Auto) 0.7 Absolute Neuts (auto) 2.4 Absolute Lymphs (auto) 2.42 Nucleated RBC % 0 Sodium 138 Potassium 3.8 Chloride 105 Carbon Dioxide 29.0 Anion Gap 4 L BUN 10 Creatinine 0.89 Estim Creat Clear Calc 63.41 Est GFR (MDRD) Af Amer 90 Est GFR (MDRD) Non-Af 74 BUN/Creatinine Ratio 11.2 Glucose 95 Lactic Acid 0.8 Calcium 9.2 Total Bilirubin 0.40 AST 22 ALT 28 Alkaline Phosphatase 70 Total Protein 8.0 Albumin 4.3 Globulin 3.7 Albumin/Globulin Ratio 1.2 Radiography Diagnostic Testing: Clinical Impression(s) from Imaging Studies Chest X-Ray 08/11/21 18:45 IMPRESSION: No acute radiographic abnormalities. Electronically Signed: Santy Church MD at 18:56 EDT Tel , Service support , Discharge Plan Triage Chief Complaint: Shortness of Breath ED Provider: Bill Santana Dx/Rx/DC Orders Clinical Impression: Systemic viral illness, Hypotension due to hypovolemia Instructions: Dehydration, ED Viral Syndrome (Adult) Prescriptions: No Action fluticasone propionate 50 mcg/actuation spray,suspension 2 spray INTRANASAL DAILY RF: 0 nabumetone 500 mg tablet 500 mg PO BID PRN (Reason: Pain) RF: 0 risperidone 1 mg tablet 1 mg PO BID RF: 0 trazodone 150 mg tablet 150 mg PO QHS PRN (Reason: Sleep) RF: 0 tizanidine 4 mg tablet 4 mg PO Q8H PRN (Reason: Pain) RF: 0 lamotrigine 150 mg tablet 150 mg PO BID Qty: 60 RF: 2 lamotrigine 100 mg tablet 150 mg PO QAM RF: 0 Primary Care Provider: Shadi Ac Referrals: Shadi Ac MD [Primary Care Provider] - 3-5 Days if not improving Disposition Disposition: Home, Self Care
[2021-08-11 18:54] LABS: ALB/GLOB Ratio 1.2 RATIO (0.9-2.4); AST(SGOT) 22 U/L (15-37); Alanine Aminotransfer ALT/SGPT 28 U/L (13-56); Albumin, Serum 4.3 g/dL (3.2-5.0); Alkaline Phosphatase 70 U/L (45-117); Anion Gap 4 (5-15); BUN 10 mg/dL (7-18); BUN/Creat Ratio 11.2 RATIO (10-20); Calcium,Total 9.2 mg/dL (8.5-10.1); Chloride 105 mmol/L (98-107); Creatinine, Serum 0.89 mg/dL (0.55-1.02); EST Glomerular Filtration Rate 74 mL/min (>60); Est Glom Filt Rate - Afr Amer 90 mL/min (>60); Estimated Creatinine Clearance 63.41 ml/min; Globulin 3.7 g/dL (2.2-4.2); Glucose 95 mg/dL (74-106); Lactic Acid 0.8 mmol/L (0.4-1.9); Potassium 3.8 mmol/L (3.5-5.1); Sodium Level 138 mmol/L (136-145)
[2021-08-11 19:08] VITALS: BP 109/74; PULSE 62; O2SAT 98
[2021-08-11 20:15] VITALS: BP 97/64; PULSE 61; RESP 18; O2SAT 98
== END 2021-08-11 20:19 | disposition home or self-care (01) ==
PROVIDERS: Emergency Provider Emergency Medicine; PCP Family Medicine
DX: B34.9 Viral infection, unspecified (principal); I95.9 Hypotension, unspecified; E86.1 Hypovolemia; F17.210 Nicotine dependence, cigarettes, uncomplicated; G40.909 Epilepsy, unspecified, not intractable, without status epilepticus; Z87.440 Personal history of urinary (tract) infections; Z79.899 Other long term (current) drug therapy
CPT/HCPCS: 71045; 80053; 83605; 85025; 87426; 96360; 96361; 99284; J7030; A4216

== ENCOUNTER → 2021-09-20 15:38 | Outpatient (CLI) | payer MEDICAID, SELFPAY | PROVIDERS: PCP Family Medicine; Visit Provider Internal Medicine Gastroenterology | DX: Z00.00 Encounter for general adult medical examination without abnormal findings (principal) | CPT/HCPCS: 36415; 80074; 82140; 82390; 82525; 82542; 82784; 83516; 86038; 86225; 86235; 86255; 86703; 86803; 87522; 87536; 87902 ==

== ENCOUNTER 2021-09-26 19:10 | Emergency (ER) | payer MEDICAID, SELFPAY ==
[2021-09-26 19:13] VITALS: BP 94/63; PULSE 84; RESP 16; TEMP 37; O2SAT 94; BMI 24.9
--- NOTE | 2021-09-26 19:44 | RAD_ITS ---
INDICATION: Cough EXAMINATION/TECHNIQUE: X-RAY - XR Chest 1 View COMPARISON: 08/11/2021 chest x-ray FINDINGS: LINES/DEVICES: None. LUNGS: Symmetric normal lung volumes. No airspace opacity or abnormal interstitial pattern. No nodule or mass. No pleural effusion or pneumothorax. Bilateral nipple shadows noted, unchanged compared to prior exam. Consider gynecomastia. MEDIASTINUM AND CARDIOVASCULAR STRUCTURES: Normal size and contour of the cardiomediastinal silhouette. No evidence of pulmonary vascular congestion. BONES AND SOFT TISSUES: No abnormality within limits of the exam. RAD/Chest 1 View (Portable) IMPRESSION: 1. No radiographic evidence of acute cardiopulmonary disease. 2. Prominent bilateral nipple shadows may represent gynecomastia. Electronically Signed: Matias Nuñez DO at 21:07 EST Tel , Service support ,
--- NOTE | 2021-09-26 19:59 | EX.ED.DYSGE1 ---
HPI History of Present Illness Chief Complaint: Chest Other Informant: patient Onset/Context/Timing Onset: Weeks (2) Context: Gradual Onset Timing: Continuous Quality: Constant dull but sharp at times Location: Left lower chest Worsened by: Deep breathing Relieved by: Nothing Narrative Narrative: Patient presents with cough that has been constant for the past 2 weeks. Patient states that whenever she coughs she has sharp pain in her left lower chest wall area. Patient states is a constant dull ache but sharp at times. Patient states it is also worse with deep breathing. Patient states she is coughing up some green sputum. Patient also admits to some rhinorrhea and sore throat. Patient states she does feel short of breath at times. Patient denies any fevers or chills. [facility] Medical History Anemia Anxiety and depression Arthritis Asthma Back problem Bipolar disorder Chronic back pain Chronic bronchitis Chronic seizure disorder with history of head trauma Endometriosis Factor XIII deficiency disease Hepatitis B Hepatitis C Hepatitis C History of substance abuse History of UTI HPV (human papilloma virus) infection Hyperlipidemia Methamphetamine dependence in remission Nicotine dependence PTSD (post-traumatic stress disorder) Seizure Seizure disorder Syncope Vertigo Home Medications fluticasone propionate 50 mcg/actuation nasal spray,suspension 2 spray INTRANASAL DAILY ml 12/22/20 [History Last Taken Unknown] lamotrigine 150 mg tablet 150 mg PO BID #60 tab 07/01/21 [Rx Last Taken Unknown] nabumetone 500 mg tablet 500 mg PO BID PRN tab 07/01/21 [History Last Taken Unknown] tizanidine 4 mg tablet 4 mg PO Q8H PRN tab 07/01/21 [History Last Taken Unknown] trazodone 150 mg tablet 225 mg PO QHS PRN tab 07/01/21 [History Last Taken Unknown] lamotrigine 150 mg PO QAM 08/11/21 [History Last Taken Unknown] albuterol sulfate 2 puff INHALATION Q2H PRN PRN 09/26/21 [History Last Taken Unknown] fluticasone propionate [Flovent HFA] 1 inh INHALATION BID 09/26/21 [History Last Taken Unknown] gabapentin 300 mg PO TID 09/26/21 [History Last Taken Unknown] Allergy/AdvReac Type Severity Reaction Status Date / Time acetaminophen [From Vicodin] AdvReac Upset Verified 12/05/21 19:11 Stomach hydrocodone [From Vicodin] AdvReac Upset Verified 09/26/21 19:11 Stomach latex AdvReac Fever and Verified 09/26/21 19:11 skin rash Family History Mother COPD (chronic obstructive pulmonary disease) Cancer lung Breast cancer Heart disease Seizures Sister Cancer cervical Brother Asthma COPD (chronic obstructive pulmonary disease) Seizures Grandmother Breast cancer CVA (cerebral vascular accident) Grandfather Cancer testicular Aunt CVA (cerebral vascular accident) Surgical History History of History of dilatation and curettage History of tubal ligation Social History household members: spouse Smoking Status: Current every day smoker tobacco type: cigarettes Tobacco: How many years used: 25 Electronic Cigarette Use: not used second hand exposure: Yes alcohol intake: former substance use type: does not use, former substance user Date of last use: 02/20/21, crack/cocaine and methamphetamine caffeine: Yes Type: coffee Number of servings: 4 ROS ROS ED Constitutional Constitutional ED: Denies chills or fever(s) Eyes Eyes: Denies blurry vision or change in vision ENT ENT ED: Reports rhinorrhea and sore throat Cardiovascular Cardiovascular: Reports chest pain; Denies palpitations Respiratory/Chest Respiratory/Chest: Reports cough, dyspnea and sputum Gastrointestinal Gastrointestinal: Denies nausea or vomiting Genitourinary Genitourinary ED: Denies dysuria or hematuria Musculoskeletal Musculoskeletal: Denies back pain or neck pain Integumentary Denies abscess or rash Neurologic Neurologic: Denies headache(s) or weakness Allergic/Immunologic Allergic/Immunologic ED: Denies mouth swelling or urticaria EXAM Physical Exam Const Vital Signs: 09/26/21 19:13 09/26/21 19:55 Temperature 98.6 F Temperature Source Temporal Pulse Rate 84 Respiratory Rate 16 Respiratory Effort Normal Non-Labored Respiratory Pattern Normal Blood Pressure 94/63 Blood Pressure Mean 73 Pulse Ox 94 Positive well nourished and well developed General Appearance ED: well developed HEENT Reports moist mucous membranes Neck supple and no JVD Chest Wall Chest Narrative: There is tenderness to palpation over the left lower chest wall. There is no bony crepitance or step-off. There is no edema or ecchymosis. Resp normal respiratory effort and clear to auscultation bilaterally Cardio regular rate, regular rhythm and no murmurs GI normal to inspection, nondistended, normoactive bowel sounds and non-tender Palpation: soft Extremity normal to inspection General Extremety ED: Negative for edema or tenderness General Extremity: Negative for edema Neuro oriented x3, CN's II-XII intact bilaterally and no sensory deficits noted Sensorium / Orientation: alert Motor Exam: strength 5/5 throughout Psych mental status grossly normal Skin no rashes or lesions noted MDM MDM MDM Narrative Medical decision making narrative: Portable 1 view chest x-ray was obtained. On my interpretation, lung amin are clear. There is normal cardiac silhouette. Bony thorax is normal. There is no acute process noted. Radiologist also interpreted the x-ray and agrees. COVID-19 rapid antigen was obtained and was negative. Patient was advised of her findings. Patient was instructed use ice to the area. Patient was instructed to continue her medications as previously prescribed. Patient was instructed to follow-up with her primary care physician in 5 to 7 days. Patient understood and was agreeable with the plan. All questions were answered. Radiography Diagnostic Testing: Clinical Impression(s) from Imaging Studies Chest X-Ray 09/26/21 19:44 IMPRESSION: 1. No radiographic evidence of acute cardiopulmonary disease. 2. Prominent bilateral nipple shadows may represent gynecomastia. Electronically Signed: Matias Nuñez DO at 21:07 EST Tel , Service support , Discharge Plan Triage Chief Complaint: Chest Other ED Provider: Douglsa Adan Dx/Rx/DC Orders Clinical Impression: Anterior chest wall pain Instructions: ED Chest Wall Pain, Costochondritis Prescriptions: No Action fluticasone propionate 50 mcg/actuation spray,suspension 2 spray INTRANASAL DAILY RF: 0 nabumetone 500 mg tablet 500 mg PO BID PRN (Reason: Pain) RF: 0 trazodone 150 mg tablet 225 mg PO QHS PRN (Reason: Sleep) RF: 0 tizanidine 4 mg tablet 4 mg PO Q8H PRN (Reason: Pain) RF: 0 lamotrigine 150 mg tablet 150 mg PO BID Qty: 60 RF: 2 lamotrigine 100 mg tablet 150 mg PO QAM RF: 0 gabapentin 300 mg Capsule 300 mg PO TID RF: 0 albuterol sulfate 90 mcg/actuation HFA aerosol inhaler 2 puff INHALATION Q2H PRN PRN (Reason: Cough) RF: 0 Flovent HFA 110 mcg/actuation HFA aerosol inhaler 1 inh INHALATION BID RF: 0 Primary Care Provider: Shadi Ac Referrals: Shadi Ac MD [Primary Care Provider] - 3-5 Days Disposition Disposition: Home, Self Care
--- NOTE | 2021-09-26 21:02 | CCN.REFER ---
spoke with radiology to inquire about chest xray results pending
== END 2021-09-26 22:23 | disposition home or self-care (01) ==
PROVIDERS: Emergency Provider Emergency Medicine; PCP Family Medicine
DX: R07.89 Other chest pain (principal); J45.909 Unspecified asthma, uncomplicated; F17.210 Nicotine dependence, cigarettes, uncomplicated; F15.21 Other stimulant dependence, in remission; Z87.440 Personal history of urinary (tract) infections; Z79.899 Other long term (current) drug therapy; Z79.51 Long term (current) use of inhaled steroids
CPT/HCPCS: 71045; 87426; 99282

== ENCOUNTER 2021-09-28 08:38 | Emergency (ER) | payer MEDICAID, SELFPAY ==
[2021-09-28 08:39] VITALS: BP 96/70; PULSE 73; RESP 14; TEMP 36.6; O2SAT 97; BMI 25.1
--- NOTE | 2021-09-28 09:10 | EKG12_ITS ---
Test Reason : CP Blood Pressure : / mmHG Vent. Rate : 063 BPM Atrial Rate : 063 BPM P-R Int : 156 ms QRS Dur : 074 ms QT Int : 404 ms P-R-T Axes : 043 039 -26 degrees QTc Int : 413 ms Normal sinus rhythm with sinus arrhythmia Nonspecific T wave abnormality Abnormal ECG Confirmed by DUNCAN MEEHAN, KALYN ([id number]), news editor MICA VILLASEÑOR ([id number]) on 09/30/2021 11:35:43 AM Referred By: SHANI Confirmed By:KALYN SONG MD
--- NOTE | 2021-09-28 09:11 | EDS_ITS ---
HPI History of Present Illness Chief Complaint: Syncope Narrative Narrative: Patient presents from radiology with syncope. She has past medical history of hepatitis B and hepatitis C. She states that she was getting an ultrasound of her abdomen. She denies that she has liver failure or abdominal distention. She states she may have had chest pain prior to this. She states her blood pressure always runs low, in the 90s, but this morning when she took it, she did not feel well because her blood pressure was in the 70s. She denies any fevers or chills. No nausea or vomiting. No other symptoms. Of note, she states that she has not eaten since last evening because she was not allowed to prior to work testing this morning. She denies any dysuria, or other symptoms. She states that she is starting to feel improved, and is no longer having chest pain. She is unsure for how long she may have passed out. [facility] Medical History Anemia Anxiety and depression Arthritis Asthma Back problem Bipolar disorder Chronic back pain Chronic bronchitis Chronic seizure disorder with history of head trauma Endometriosis Factor XIII deficiency disease Hepatitis B Hepatitis C Hepatitis C History of substance abuse History of UTI HPV (human papilloma virus) infection Hyperlipidemia Methamphetamine dependence in remission Nicotine dependence PTSD (post-traumatic stress disorder) Seizure Seizure disorder Syncope Vertigo Home Medications fluticasone propionate 50 mcg/actuation nasal spray,suspension 2 spray INTRANASAL DAILY ml 12/22/20 [History Last Taken Unknown] lamotrigine 150 mg tablet 150 mg PO BID #60 tab 07/01/21 [Rx Last Taken Unknown] nabumetone 500 mg tablet 500 mg PO BID PRN tab 07/01/21 [History Last Taken Unknown] tizanidine 4 mg tablet 4 mg PO Q8H PRN tab 07/01/21 [History Last Taken Unknown] trazodone 150 mg tablet 225 mg PO QHS PRN tab 07/01/21 [History Last Taken Unknown] lamotrigine 150 mg PO QAM 08/11/21 [History Last Taken Unknown] albuterol sulfate 2 puff INHALATION Q2H PRN PRN 09/26/21 [History Last Taken Unknown] fluticasone propionate [Flovent HFA] 1 inh INHALATION BID 09/26/21 [History Last Taken Unknown] gabapentin 300 mg PO TID 09/26/21 [History Last Taken Unknown] Allergy/AdvReac Type Severity Reaction Status Date / Time acetaminophen [From Vicodin] AdvReac Upset Verified 09/26/21 19:11 Stomach hydrocodone [From Vicodin] AdvReac Upset Verified 09/26/21 19:11 Stomach latex AdvReac Fever and Verified 09/26/21 19:11 skin rash Family History Mother COPD (chronic obstructive pulmonary disease) Cancer lung Breast cancer Heart disease Seizures Sister Cancer cervical Brother Asthma COPD (chronic obstructive pulmonary disease) Seizures Grandmother Breast cancer CVA (cerebral vascular accident) Grandfather Cancer testicular Aunt CVA (cerebral vascular accident) Surgical History History of History of dilatation and curettage History of tubal ligation Social History household members: spouse Smoking Status: Current every day smoker tobacco type: cigarettes Tobacco: How many years used: 25 Electronic Cigarette Use: not used second hand exposure: Yes alcohol intake: former substance use type: does not use, former substance user Date of last use: 02/20/21, crack/cocaine and methamphetamine caffeine: Yes Type: coffee Number of servings: 4 ROS ROS ED ROS Narrative Constitutional: No fever, no chills. HEENT: No sore throat. No neck pain. No loss of vision. No rhinorrhea. Cardiovascular: Positive chest pain-resolved. No palpitations. No pedal edema. Respiratory: No cough, no shortness of breath. Abdominal: No abdominal pain. No nausea. No vomiting. Genitourinary: No dysuria. No hematuria. Musculoskeletal: No myalgias. No arthralgias. Neurologic: No headaches. No dizziness. Positive lightheadedness (chronic). Skin: No rash. No change in color. Psychiatric: No depression. No anxiety. EXAM Physical Exam Narrative Exam Narrative: Afebrile. Vital signs noted. HEENT: Normocephalic. Atraumatic. PERRL, EOMI. Neck soft and supple. No point tenderness or step off. Cardiovascular: Regular rate and rhythm. No murmurs, rubs, or gallops appreciated. Respiratory: No tachypnea. Lungs clear to auscultation bilaterally. Gastrointestinal: Abdomen soft, nontender, with normoactive bowel sounds. No rebound or guarding. Neurological: Awake. Alert. Nonfocal, nonlateralizing. Skin: No rash. Normal color. No pallor. Musculoskeletal: No pedal edema. Full range of motion extremities. Const Vital Signs: 09/28/21 08:39 09/28/21 08:47 Temperature 97.8 F Temperature Source Oral Pulse Rate 73 Respiratory Rate 14 Respiratory Effort Normal Non-Labored Blood Pressure 96/70 Blood Pressure Mean 78 Pulse Ox 97 Oxygen Delivery Method Room Air MDM MDM MDM Narrative Medical decision making narrative: Patient presents as a rapid response from radiology. She is awake, and alert. Her EKG demonstrates normal sinus rhythm with a sinus arrhythmia [address] changes. Her CBC is grossly normal with a normal white count normal hemoglobin. Her potassium was slightly low at 3.4. On her BMP, her glucose was 74. Troponin was less than 3. 1 she had a lower [id number] glucose at 67. She was able to eat something. However, when I was awaiting laboratory work, she decided that she wanted to sign out AMA. She was told of the risk of my understanding injury from continued syncope, permanent disability, and . She acknowledges understanding and states that she always has problems with her blood pressure being low when she has passed out multiple times in the past. She was told that if she wishes to change her mind that she could always return to the emergency department. I feel she has the capacity to sign out AGAINST MEDICAL ADVICE and make that decision for herself. Return instructions were reviewed. Disposition is signed out AGAINST MEDICAL ADVICE. She was in stable condition. Lab Data Attestation: I reviewed the patient's lab results. Labs: Laboratory Results - last 24 hr 09/28/21 09/28/21 09/28/21 09:43 09:43 09:55 WBC 4.4 RBC 4.52 Hgb 14.1 Hct 40.7 MCV 90.0 MCH 31.2 MCHC 34.6 RDW Std Deviation 36.9 RDW Coeff of Main 11.1 L Plt Count 305 MPV 9.4 Immature Gran % (Auto) 0.000 Neut % (Auto) 45.5 L Lymph % (Auto) 42.3 H Frio % (Auto) 7.7 Eos % (Auto) 3.6 Baso % (Auto) 0.9 Absolute Neuts (auto) 2.0 Absolute Lymphs (auto) 1.87 Nucleated RBC % 0 Sodium 139 Potassium 3.4 L Chloride 106 Carbon Dioxide 29.0 Anion Gap 4 L BUN 5 L Creatinine 0.86 Estim Creat Clear Calc 65.62 Est GFR (MDRD) Af Amer 94 Est GFR (MDRD) Non-Af 77 BUN/Creatinine Ratio 5.8 L Glucose 74 Calcium 9.2 Total Bilirubin 0.50 AST 27 ALT 36 Alkaline Phosphatase 76 Troponin I High Sens < 3 L Total Protein 8.3 H Albumin 4.4 Globulin 3.9 Albumin/Globulin Ratio 1.1 POC Glucose 67 L Discharge Plan Triage Chief Complaint: Syncope ED Provider: Ronen Zelaya Dx/Rx/DC Orders Clinical Impression: Syncope, Hypoglycemia, Left against medical advice Prescriptions: No Action fluticasone propionate 50 mcg/actuation spray,suspension 2 spray INTRANASAL DAILY RF: 0 nabumetone 500 mg tablet 500 mg PO BID PRN (Reason: Pain) RF: 0 trazodone 150 mg tablet 225 mg PO QHS PRN (Reason: Sleep) RF: 0 tizanidine 4 mg tablet 4 mg PO Q8H PRN (Reason: Pain) RF: 0 lamotrigine 150 mg tablet 150 mg PO BID Qty: 60 RF: 2 lamotrigine 100 mg tablet 150 mg PO QAM RF: 0 gabapentin 300 mg Capsule 300 mg PO TID RF: 0 albuterol sulfate 90 mcg/actuation HFA aerosol inhaler 2 puff INHALATION Q2H PRN PRN (Reason: Cough) RF: 0 Flovent HFA 110 mcg/actuation HFA aerosol inhaler 1 inh INHALATION BID RF: 0 Primary Care Provider: Shadi Ac Referrals: Shadi Ac MD [Primary Care Provider] - Disposition Disposition: Against Medical Advice Discharge Date/Time: 09/28/21 10:12
[2021-09-28 10:00] LABS: Bedside Glucose 67 mg/dL (70-110)
[2021-09-28 10:05] LABS: Absolute Lymphocyte Count 1.87 X10^3/uL (0.83-4.51); Basophil# 0.04 X10^3/uL; Basophil% 0.9 % (0-1); Eosinophil# 0.16 X10^3/uL; Eosinophils% 3.6 % (0-5); Hematocrit 40.7 % (37-47); Hemoglobin 14.1 g/dL (12.0-15.0); Lymphocyte # 1.87 X10^3/ul (0.83-4.51); Lymphocyte % 42.3 % (19-41); Mean Corp Hgb Conc 34.6 g/dL (32-36); Mean Corpuscular Hgb 31.2 pg (27.0-32.0); Mean Platelet Vol. 9.4 fl (6.2-12.0); Monocyte# 0.34 X10^3/uL; Monocyte% 7.7 % (0-10); NRBC Flagged by Analyzer 0 % (0-5); Neutrophil # 2.01 X10^3/uL (2.7-7.7); Neutrophil % 45.5 % (47-70); Platelet Count 305 K/mm3 (150-450); RBC Distribution Width CV 11.1 % (11.6-14.6); RBC Distribution Width SD 36.9 fl (35.1-43.9); Red Blood Count 4.52 M/mm3 (4.2-5.4); White Blood Count 4.4 K/mm3 (4.4-11.0)
[2021-09-28 10:21] LABS: ALB/GLOB Ratio 1.1 RATIO (0.9-2.4); AST(SGOT) 27 U/L (15-37); Alanine Aminotransfer ALT/SGPT 36 U/L (13-56); Albumin, Serum 4.4 g/dL (3.2-5.0); Alkaline Phosphatase 76 U/L (45-117); Anion Gap 4 (5-15); BUN 5 mg/dL (7-18); BUN/Creat Ratio 5.8 RATIO (10-20); Calcium,Total 9.2 mg/dL (8.5-10.1); Chloride 106 mmol/L (98-107); Creatinine, Serum 0.86 mg/dL (0.55-1.02); EST Glomerular Filtration Rate 77 mL/min (>60); Est Glom Filt Rate - Afr Amer 94 mL/min (>60); Estimated Creatinine Clearance 65.62 ml/min; Globulin 3.9 g/dL (2.2-4.2); Glucose 74 mg/dL (74-106); Potassium 3.4 mmol/L (3.5-5.1); Protein, Total 8.3 g/dL (6.4-8.2); Sodium Level 139 mmol/L (136-145); Troponin-I HS < 3 pg/mL (3.0-54.0)
[2021-09-30 13:35] LABS: Bedside Glucose 148 mg/dL (70-110)
== END 2021-09-28 10:12 | disposition left against medical advice (07) ==
LOC: ED 09:58
PROVIDERS: Emergency Provider Emergency Medicine; PCP Family Medicine
DX: R55 Syncope and collapse (principal); E16.2 Hypoglycemia, unspecified; F17.210 Nicotine dependence, cigarettes, uncomplicated; J44.9 Chronic obstructive pulmonary disease, unspecified; G40.909 Epilepsy, unspecified, not intractable, without status epilepticus; M19.90 Unspecified osteoarthritis, unspecified site; Z87.440 Personal history of urinary (tract) infections; Z79.51 Long term (current) use of inhaled steroids; Z53.29 Procedure and treatment not carried out because of patient's decision for other reasons; Z79.899 Other long term (current) drug therapy
CPT/HCPCS: 80053; 82962; 84484; 85025; 93005; 99285; J7030; A4216

== ENCOUNTER 2021-11-01 08:40 | Emergency (ER) | payer MEDICAID, SELFPAY ==
[2021-11-01 08:45] VITALS: BP 94/69; PULSE 75; RESP 16; TEMP 36.6; O2SAT 99; BMI 26.4
--- NOTE | 2021-11-01 09:36 | EDS_ITS ---
HPI History of Present Illness Chief Complaint: Seizure Informant: patient Narrative Narrative: Patient presents after having a seizure at work. She states she felt it coming on. She feels fine now. She thinks it was due to not sleeping much recently due to several things that have happened. She also did not get breakfast this morning and that is a very common trigger for her seizures. She is currently on Lamictal. She is no longer on Keppra because she thinks it was turning her urine positive for fentanyl and that was causing problems with her parole. She states she has not used fentanyl or any drugs since February. She used to use meth and never did use fentanyl but it certainly could have been mixed in. She states she feels fine. She did not want to come in. She really does not want an evaluation. She states this would be a typical seizure for her. She has not been ill recently. She has no headaches. She is on Nexplanon. She has been taking her medicines. She has COPD but is not having any breathing issues. [facility] Medical History Anemia Anxiety and depression Arthritis Asthma Back problem Bipolar disorder Chronic back pain Chronic bronchitis Chronic seizure disorder with history of head trauma Endometriosis Factor XIII deficiency disease Hepatitis B Hepatitis C Hepatitis C History of substance abuse History of UTI HPV (human papilloma virus) infection Hyperlipidemia Methamphetamine dependence in remission Nicotine dependence PTSD (post-traumatic stress disorder) Seizure Seizure disorder Syncope Vertigo Home Medications fluticasone propionate 50 mcg/actuation nasal spray,suspension 2 spray INTRANASAL DAILY ml 12/22/20 [History Last Taken Unknown] lamotrigine 150 mg tablet 150 mg PO BID #60 tab 07/01/21 [Rx Last Taken Unknown] nabumetone 500 mg tablet 500 mg PO BID PRN tab 07/01/21 [History Last Taken Unknown] tizanidine 4 mg tablet 4 mg PO Q8H PRN tab 07/01/21 [History Last Taken Unknown] trazodone 150 mg tablet 225 mg PO QHS PRN tab 07/01/21 [History Last Taken Unknown] lamotrigine 150 mg PO QAM 08/11/21 [History Last Taken Unknown] albuterol sulfate 2 puff INHALATION Q2H PRN PRN 09/26/21 [History Last Taken Unknown] fluticasone propionate [Flovent HFA] 1 inh INHALATION BID 12/05/21 [History Last Taken Unknown] gabapentin 300 mg PO TID 09/26/21 [History Last Taken Unknown] Allergy/AdvReac Type Severity Reaction Status Date / Time acetaminophen [From Vicodin] AdvReac Upset Verified 11/01/21 08:47 Stomach hydrocodone [From Vicodin] AdvReac Upset Verified 11/01/21 08:47 Stomach latex AdvReac Fever and Verified 11/01/21 08:47 skin rash Family History Mother COPD (chronic obstructive pulmonary disease) Cancer lung Breast cancer Heart disease Seizures Sister Cancer cervical Brother Asthma COPD (chronic obstructive pulmonary disease) Seizures Grandmother Breast cancer CVA (cerebral vascular accident) Grandfather Cancer testicular Aunt CVA (cerebral vascular accident) Surgical History History of History of dilatation and curettage History of tubal ligation Social History household members: spouse Smoking Status: Current every day smoker tobacco type: cigarettes Tobacco: How many years used: 25 Electronic Cigarette Use: not used second hand exposure: Yes alcohol intake: former substance use type: does not use, former substance user Date of last use: 02/20/21, crack/cocaine and methamphetamine caffeine: Yes Type: coffee Number of servings: 4 ROS ROS ED Constitutional Constitutional ED: Denies chills or fever(s) Eyes Eyes: Denies blurry vision, change in vision or diplopia ENT ENT ED: Denies rhinorrhea or sore throat Cardiovascular Cardiovascular: Denies chest pain or palpitations Respiratory/Chest Respiratory/Chest: Denies cough or dyspnea Gastrointestinal Gastrointestinal: Denies abdominal pain, diarrhea, nausea or vomiting Genitourinary Genitourinary ED: Denies dysuria or hematuria Musculoskeletal Musculoskeletal: Denies myalgias Integumentary Denies rash Neurologic Neurologic: Denies headache(s), paresthesias or weakness Psychiatric Psychiatric: Reports anxiety and depression; Denies suicidal thoughts Endocrine Endocrinology: Denies polydipsia or polyuria Allergic/Immunologic Allergic/Immunologic ED: Denies mouth swelling or urticaria EXAM Physical Exam Const Vital Signs: 01/10/22 08:45 Temperature 97.9 F Temperature Source Temporal Pulse Rate 75 Respiratory Rate 16 Blood Pressure 94/69 Blood Pressure Mean 77 Pulse Ox 99 Oxygen Delivery Method Room Air Positive well nourished and well developed; Negative for unkempt General Appearance ED: well developed and NAD; Negative for unkempt, cyanotic, diaphoretic or pallor HEENT Reports moist mucous membranes Negative for trauma or tenderness Eyes General Eye ED: Negative for pale conjunctiva or scleral icterus Neck no lymphadenopathy, supple and no JVD General: Negative for tenderness Chest Wall inspection of chest normal Resp normal respiratory effort and clear to auscultation bilaterally Auscultation: Negative for wheezes Cardio regular rate and regular rhythm GI normal to inspection, nondistended, normoactive bowel sounds and non-tender Palpation: soft Back/Spine no CVA tenderness Extremity normal to inspection General Extremety ED: Negative for edema or tenderness General Extremity: Negative for edema Neuro oriented x3 and no sensory deficits noted Sensorium / Orientation: alert; Negative for orientation impaired, lethargic or stuporous Motor Exam: strength 5/5 throughout; Negative for general weakness Psych mental status grossly normal Appearance: Negative for unkempt Attitude: No agitated Mood & Affect: Negative for depressed, anxious or tearful Skin no rashes or lesions noted General Skin Exam: Negative for jaundice or pallor MDM MDM MDM Narrative Medical decision making narrative: Patient states she has had seizures for a long time. She takes her medicine. She knows conditions that cause her seizures. 1 of these conditions occurred today with poor sleep and no breakfast. She really does not want an evaluation. She states she has had scans and blood work done many times. No one has ever found a specific cause of her seizures. She is not on a medication that I can easily check levels of. She is oriented x3. She has the capacity make her own decisions. I think this is a reasonable option. Discharge Plan Triage Chief Complaint: Seizure ED Provider: Jason Ventura Dx/Rx/DC Orders Clinical Impression: Seizure disorder Instructions: ED Seizure, Recurrent (Adult) Prescriptions: No Action fluticasone propionate 50 mcg/actuation spray,suspension 2 spray INTRANASAL DAILY RF: 0 nabumetone 500 mg tablet 500 mg PO BID PRN (Reason: Pain) RF: 0 trazodone 150 mg tablet 225 mg PO QHS PRN (Reason: Sleep) RF: 0 tizanidine 4 mg tablet 4 mg PO Q8H PRN (Reason: Pain) RF: 0 lamotrigine 150 mg tablet 150 mg PO BID Qty: 60 RF: 2 lamotrigine 100 mg tablet 150 mg PO QAM RF: 0 gabapentin 300 mg Capsule 300 mg PO TID RF: 0 albuterol sulfate 90 mcg/actuation HFA aerosol inhaler 2 puff INHALATION Q2H PRN PRN (Reason: Cough) RF: 0 Flovent HFA 110 mcg/actuation HFA aerosol inhaler 1 inh INHALATION BID RF: 0 Primary Care Provider: Shadi Ac Referrals: Shadi Ac MD [Primary Care Provider] - [facility] appointment Disposition Disposition: Home, Self Care
== END 2021-11-01 09:56 | disposition home or self-care (01) ==
PROVIDERS: Emergency Provider Emergency Medicine; PCP Family Medicine; Visit Provider Emergency Medicine
DX: G40.909 Epilepsy, unspecified, not intractable, without status epilepticus (principal); J44.9 Chronic obstructive pulmonary disease, unspecified; F31.9 Bipolar disorder, unspecified; D68.2 Hereditary deficiency of other clotting factors; E78.5 Hyperlipidemia, unspecified; F17.210 Nicotine dependence, cigarettes, uncomplicated; Z79.899 Other long term (current) drug therapy; M19.90 Unspecified osteoarthritis, unspecified site; F41.9 Anxiety disorder, unspecified; G89.29 Other chronic pain; Z86.19 Personal history of other infectious and parasitic diseases; Z87.440 Personal history of urinary (tract) infections; F43.10 Post-traumatic stress disorder, unspecified; N80.9 Endometriosis, unspecified
CPT/HCPCS: 99284; J7030

== ENCOUNTER 2021-11-17 08:03 | Outpatient (CLI) | payer MEDICAID, SELFPAY ==
--- NOTE | 2021-11-17 08:06 | US_ITS ---
STUDY: ABDOMINAL ULTRASOUND REASON FOR EXAM: Female, 41 years old. Hepatitis C TECHNIQUE: Transabdominal ultrasound was performed with real-time and static fernandez scale imaging. TECHNICAL QUALITY: Adequate. COMPARISON: None. FINDINGS: Liver: The liver measures 16 cm. There is normal echogenicity of the liver. The bile ducts are within normal limits. There is hepatic color flow. The direction of portal flow is hepatopetal. There is no demonstrated mass lesion. Gallbladder: Normal distended gallbladder. The gallbladder wall measures 2.5 mm. There is a negative sonographic Burkett''s sign. There is no pericholecystic fluid. There are no gallstones. Common Bile Duct (C.B.D.): The common bile duct measures 3.6 mm. Pancreas: Normal size of the head, body and tail of the pancreas. There is normal echogenicity of the pancreas. There is no demonstrated pancreatic mass or cyst. Spleen: Normal size of the spleen. The spleen measures 9.8 cm x 3.7 cm x 3.9 cm. Right Kidney: Normal size of the right kidney. The right kidney measures 10.8 cm x 5.8 cm x 3.9 cm. Normal renal cortex. The right cortex measures 1.2 cm. There is no demonstrated renal mass or cyst. There is no right hydronephrosis. Left Kidney: Normal size of the left kidney. The left kidney measures 10.5 cm x 5.3 cm x 4.8 cm. Normal renal cortex. The left cortex measures 2.3 cm. There is no demonstrated renal mass or cyst. There is no left hydronephrosis. Aorta: Unremarkable I.V.C.: The IVC is patent. There is no ascites. US/Abdomen Complete IMPRESSION: Normal abdominal ultrasound examination. Electronically Signed: Jamir Galvan MD at 11:20 EST ,
[2021-11-17 09:22] LABS: Absolute Lymphocyte Count 1.99 X10^3/uL (0.83-4.51); Absolute Neutrophil Count 3.5 X10^3/uL (2.0-7.7); Basophil# 0.03 X10^3/uL; Basophil% 0.5 % (0-1); Eosinophil# 0.12 X10^3/uL; Hematocrit 37.8 % (37-47); Hemoglobin 13.1 g/dL (12.0-15.0); Lymphocyte # 1.99 X10^3/ul (0.83-4.51); Lymphocyte % 32.4 % (19-41); Mean Corp Hgb Conc 34.7 g/dL (32-36); Mean Corpuscular Hgb 31.1 pg (27.0-32.0); Mean Corpuscular Volume 89.8 fL (81-99); Mean Platelet Vol. 9.3 fl (6.2-12.0); Monocyte# 0.52 X10^3/uL; Monocyte% 8.5 % (0-10); NRBC Flagged by Analyzer 0 % (0-5); Neutrophil # 3.48 X10^3/uL (2.7-7.7); Neutrophil % 56.4 % (47-70); Platelet Count 289 K/mm3 (150-450); RBC Distribution Width CV 11.7 % (11.6-14.6); Red Blood Count 4.21 M/mm3 (4.2-5.4); White Blood Count 6.2 K/mm3 (4.4-11.0)
[2021-11-17 13:02] LABS: Hepatitis C Antibody REACTIVE (Nonreactive)
[2021-11-19 02:07] LABS: Anti-Centromere B Ab <0.2 AI (0.0-0.9); Anti-Chromatin <0.2 AI (0.0-0.9); Anti-Jo <0.2 AI (0.0-0.9); Anti-Scleroderma-70 AB <0.2 AI (0.0-0.9); Anti-ribosomal P Antibodies <0.2 AI (0.0-0.9); RNP Ab 0.2 AI (0.0-0.9); SJOGREN'S Anti-SS-A test < 0.2 AI (0.0-0.9); SJOGREN'S Anti-SS-B test < 0.2 AI (0.0-0.9); Smith Ab <0.2 AI (0.0-0.9); Smith/RNP Ab <0.2 AI (0.0-0.9)
[2021-11-19 18:02] LABS: Anti-Mitochondrial AB <20.0 Units (0.0-20.0); Anti-dsDNA Ab <1 IU/mL (0-9); HIV-1 RNA by PCR, Quant. < 20 copies/mL (.)
[2021-11-19 21:07] LABS: Ceruloplasmin 21.4 mg/dL (19.0-39.0); Endomysial Antibody IgA Negative (Negative); HCV Quant. RNA PCR 60700 IU/mL (.); HEPATITIS B SURFACE AG Negative (Negative); Hepatitis A IgM Antibody Negative (Negative); Hepatitis B Core AB IgM Negative (Negative); Immunoglobulin A 116 mg/dL (87-352)
[2021-11-19 21:44] LABS: Anti-Smooth Muscle ABS 7 Units (0-19)
[2021-11-19 21:45] LABS: Copper, Serum or Plasma 98 ug/dL (80-158); HCV log 10 4.783 (.); Hep C Antibodies >11.0 s/co ratio (0.0-0.9); Lamotrigine (Lamictal) Level 6.5 ug/mL (2.0-20.0); t-Transglutaminase IgA <2 U/mL (0-3)
== END 2021-11-17 23:59 | disposition short-term general hospital (02) ==
PROVIDERS: PCP Family Medicine; Referring Provider Internal Medicine Gastroenterology; Visit Provider Internal Medicine Gastroenterology
DX: B19.20 Unspecified viral hepatitis C without hepatic coma (principal)
CPT/HCPCS: 36415; 76700; 80074; 82140; 82390; 82525; 82542; 82784; 83516; 85025; 86038; 86225; 86235; 86255; 86803; 87522; 87536; 87902

== ENCOUNTER 2021-12-05 13:21 | Emergency (ER) | payer MEDICAID, SELFPAY ==
[2021-12-05 13:22] VITALS: BP 90/59; PULSE 78; RESP 15; TEMP 36.5; O2SAT 98; BMI 25.1
--- NOTE | 2021-12-05 13:33 | RAD_ITS ---
STUDY: X-RAY - RIGHT KNEE REASON FOR EXAM: Female, 41 years old. fall TECHNIQUE: 4 view(s) of the knee. COMPARISON: None. FINDINGS: Normal visualized distal femur. Normal visualized proximal tibia and fibula. Normal proximal tibiofibular articulation. Normal medial femorotibial compartment. Normal lateral femorotibial compartment. Normal patellofemoral articulation. The soft tissue structures are unremarkable. RAD/Knee 4 or More Views IMPRESSION: No evidence of acute fracture or dislocation. Electronically Signed: Francis Mccarty, at 14:18 EST ,
--- NOTE | 2021-12-05 14:13 | EDS_ITS ---
HPI History of Present Illness Chief Complaint: Lower Extremity Injury Detail of Chief Complaint: Injury to left knee Informant: patient Narrative Narrative: Patient states that she fell on the sidewalk when her left leg slipped and she twisted her right knee about an hour ago. Patient had a hard time bearing weight afterwards. She complains of pain from the right ankle all the way up to her right hip. Patient denies striking her head or loss of consciousness. She denies any other complaints. [facility] Medical History Anemia Anxiety and depression Arthritis Asthma Back problem Bipolar disorder Chronic back pain Chronic bronchitis Chronic seizure disorder with history of head trauma Endometriosis Factor XIII deficiency disease Hepatitis B Hepatitis C Hepatitis C History of substance abuse History of UTI HPV (human papilloma virus) infection Hyperlipidemia Methamphetamine dependence in remission Nicotine dependence PTSD (post-traumatic stress disorder) Seizure Seizure disorder Syncope Vertigo Home Medications fluticasone propionate 50 mcg/actuation nasal spray,suspension 2 spray INTRANASAL DAILY ml 12/22/20 [History Last Taken Unknown] nabumetone 500 mg tablet 500 mg PO BID PRN tab 07/01/21 [History Last Taken Unknown] tizanidine 4 mg tablet 4 mg PO Q8H PRN tab 07/01/21 [History Last Taken Unknown] trazodone 150 mg tablet 225 mg PO QHS PRN tab 07/01/21 [History Last Taken Unknown] albuterol sulfate 2 puff INHALATION Q2H PRN PRN 09/26/21 [History Last Taken Unknown] fluticasone propionate [Flovent HFA] 1 inh INHALATION BID 09/26/21 [History Last Taken Unknown] gabapentin 300 mg PO TID 09/26/21 [History Last Taken Unknown] lamotrigine 150 mg tablet 150 mg PO BID #60 tab 11/15/21 [Rx Last Taken Unknown] Allergy/AdvReac Type Severity Reaction Status Date / Time acetaminophen [From Vicodin] AdvReac Upset Verified 12/05/21 13:22 Stomach hydrocodone [From Vicodin] AdvReac Upset Verified 12/05/21 13:22 Stomach latex AdvReac Fever and Verified 12/05/21 13:22 skin rash Family History Mother COPD (chronic obstructive pulmonary disease) Cancer lung Breast cancer Heart disease Seizures Sister Cancer cervical Brother Asthma COPD (chronic obstructive pulmonary disease) Seizures Grandmother Breast cancer CVA (cerebral vascular accident) Grandfather Cancer testicular Aunt CVA (cerebral vascular accident) Surgical History History of History of dilatation and curettage History of tubal ligation Social History household members: spouse Smoking Status: Current every day smoker tobacco type: cigarettes Tobacco: How many years used: 25 Electronic Cigarette Use: not used second hand exposure: Yes alcohol intake: former substance use type: does not use, former substance user Date of last use: 02/20/21, crack/cocaine and methamphetamine caffeine: Yes Type: coffee Number of servings: 4 ROS ROS ED Constitutional Constitutional ED: Reports systems reviewed and no addt'l complaints, except as documented; Denies body ache(s), change in weight or chills Eyes Eyes: Denies acute decrease in peripheral vision, change in vision, double vision or loss of vision ENT ENT ED: Reports none; Denies ear pain, lip swelling, loss taste/smell, neck pain, otalgia or sore throat Cardiovascular Cardiovascular: Reports none; Denies abdominal pain, chest pain with activity, leg edema, lightheadedness, palpitations, rapid heart rate or syncope Respiratory/Chest Respiratory/Chest: Reports none; Denies change in mental status, dry cough, dyspnea, hemoptysis, shortness of breath at rest or shortness of breath with exertion Gastrointestinal Gastrointestinal: Reports none; Denies abdominal pain, change in stool character, diarrhea, hematemesis, hematochezia, melena, rectal bleeding or vomiting Genitourinary Genitourinary ED: Reports none; Denies abdominal discomfort, anuria, dysuria, genital pain or polyuria Musculoskeletal Musculoskeletal: Reports none and other Details: Right knee and hip pain ; Denies arthralgias, back pain, difficulty walking, extremity pain, muscle weakness or myalgias Integumentary Reports none; Denies abscess or rash Neurologic Neurologic: Reports none; Denies abnormal gait, confusion, focal weakness, frequent falls, headache(s), loss of vision, numbness, paresthesias, radicular pain, vertigo or weakness Psychiatric Psychiatric: Reports systems reviewed and no addt'l complaints, except as documented and none; Denies behavioral changes, confusion, difficulty concentrating, hallucinations, suicidal ideation, tactile hallucinations or visual hallucinations Endocrine Endocrinology: Denies none, cold intolerance, excessive sweating, fatigue or heat intolerance Hematologic/Lymphatic Hematologic/Lymphatic: Reports none; Denies anemia, easy bleeding or easy bruising Allergic/Immunologic Allergic/Immunologic ED: Denies as per HPI, none, lip swelling, mouth swelling, throat swelling, tongue swelling or hives EXAM Physical Exam Const Vital Signs: 12/05/21 13:22 Temperature 97.7 F L Temperature Source Temporal Pulse Rate 78 Respiratory Rate 15 Blood Pressure 90/59 L Blood Pressure Mean 69 Pulse Ox 98 Oxygen Delivery Method Room Air Positive well nourished and well developed General Appearance ED: well developed and NAD HEENT Reports TM's clear and moist mucous membranes normocephalic and atraumatic; Negative for trauma or tenderness Tympanic Membrane ED: Yes TM's clear Eyes PERRL and EOMs intact bilaterally General Eye ED: Negative for pale conjunctiva or scleral icterus Neck no lymphadenopathy, supple and no JVD General: Negative for tenderness Chest Wall inspection of chest normal and palpation of chest normal Chest: Negative for tenderness Resp normal respiratory effort and clear to auscultation bilaterally Effort and Inspection: Negative for respiratory distress or pain with movement Auscultation: Negative for rhonchi, wheezes or diminished lung sounds Cardio regular rate, regular rhythm, S1 normal heart sound, S2 normal heart sound and n o murmurs Peripheral Pulses: pulses 2+ throughout GI normal to inspection, nondistended, normoactive bowel sounds, soft to palpation, non-tender, non-distended and no masses Back/Spine no CVA tenderness and no thoracic nor lumbar tenderness Extremity Extremity Narrative: Evaluation of the right knee-patient has diffuse tenderness palpation over the medial lateral joint lines. Questionable subtle laxity with stress on the lateral collateral ligament. Normal anterior and posterior drawer test. She is neurovascular intact distally. Patient had no tenderness over the medial or lateral malleolus. Evaluation of the right hip reveals mild tenderness over the hip but there is no shortening or external rotation deformity. No real pain with logrolling. General Extremety ED: Negative for edema General Extremity: Negative for edema Neuro oriented x3, CN's II-XII intact bilaterally, no sensory deficits noted and gait normal Sensorium / Orientation: awake, alert, oriented to person, oriented to place and oriented to time Motor Exam: strength 5/5 throughout and strength abnormal Psych mental status grossly normal Skin no rashes or lesions noted and no wounds MDM MDM MDM Narrative Medical decision making narrative: X-ray of right knee obtained via protocol by nursing staff which on my interpretation appears normal. Official report from radiology pending. Patient will be placed in a knee immobilizer and given crutches. I discussed obtaining an x-ray of her right hip as well given that she had some discomfort over the area however she does not feel like she wants to have that as she does not think she broke her hip and my suspicions very low as well. Discharge Plan Triage Chief Complaint: Lower Extremity Injury ED Provider: Zackery Meng Dx/Rx/DC Orders Clinical Impression: Right knee sprain Instructions: ED Knee Sprain Prescriptions: No Action fluticasone propionate 50 mcg/actuation spray,suspension 2 spray INTRANASAL DAILY RF: 0 nabumetone 500 mg tablet 500 mg PO BID PRN (Reason: Pain) RF: 0 trazodone 150 mg tablet 225 mg PO QHS PRN (Reason: Sleep) RF: 0 tizanidine 4 mg tablet 4 mg PO Q8H PRN (Reason: Pain) RF: 0 gabapentin 300 mg Capsule 300 mg PO TID RF: 0 albuterol sulfate 90 mcg/actuation HFA aerosol inhaler 2 puff INHALATION Q2H PRN PRN (Reason: Cough) RF: 0 Flovent HFA 110 mcg/actuation HFA aerosol inhaler 1 inh INHALATION BID RF: 0 lamotrigine 150 mg tablet 150 mg PO BID Qty: 60 RF: 2 Primary Care Provider: Shadi Ac Referrals: Shadi Ac MD [Primary Care Provider] - 5-7 Days Disposition Disposition: Home, Self Care
[2021-12-05 14:51] VITALS: BP 124/78; PULSE 88; RESP 14; TEMP 36.6; O2SAT 98
[2021-12-05] MEDS: Ibuprofen 600 MG Tablet PO (14:52)
== END 2021-12-05 14:53 | disposition home or self-care (01) ==
PROVIDERS: Emergency Provider Emergency Medicine; PCP Family Medicine; Visit Provider Emergency Medicine
DX: S83.91XA Sprain of unspecified site of right knee, initial encounter (principal); F17.210 Nicotine dependence, cigarettes, uncomplicated; W19.XXXA Unspecified fall, initial encounter
CPT/HCPCS: 73564; 99284

== ENCOUNTER 2022-01-14 15:12 | Observation (INO) | payer MEDICAID, SELFPAY ==
[2022-01-14] VITALS (8 sets, daily range): BP systolic 95–124; BP diastolic 64–83; PULSE 72–87; RESP 16–20; TEMP 36.4–36.9; O2SAT 97–100; BMI 24.7; BMI 24.5
[2022-01-14] MEDS: LORazepam 2 MG/ML Syringe 1 MG IV ×2 (15:21→15:32)
--- NOTE | 2022-01-14 15:25 | EKG12_ITS ---
Test Reason : SEIZURE Blood Pressure : / mmHG Vent. Rate : 081 BPM Atrial Rate : 081 BPM P-R Int : 160 ms QRS Dur : 076 ms QT Int : 380 ms P-R-T Axes : 045 059 034 degrees QTc Int : 441 ms Normal sinus rhythm Normal ECG Confirmed by CAROLINA EVANGELISTA MD ([id number]), telegraph editor MICA VILLASEÑOR ([id number]) on 01/18/2022 11:04:04 AM Referred By: MERVAT Confirmed By:CAROLINA EVANGELISTA MD
[2022-01-14] MEDS: 0.9% Normal Saline 1,000 ML 1000 ML IV (15:40)
--- NOTE | 2022-01-14 15:41 | EDS_ITS ---
HPI History of Present Illness Chief Complaint: Seizure Informant: patient and EMS Onset/Context/Timing Onset: Today Narrative Narrative: Patient presents via EMS secondary to seizures. She is a history of epilepsy and is currently on Lamictal. She does state that her Lamictal was recently increased. She believes her last seizure was approximately 1 month ago. She had 2 seizures at work today and 1 with EMS. She was given intranasal Versed with EMS. Shortly arrival to the emergency room she began seizing again but stopped before Ativan could be given. I have witnessed a total of 3 seizures while in the emergency room. She is received 2 doses of Ativan 1 mg each. I did review previous neurology note. Reportedly she claims that her tox screen was 20+ for fentanyl because of Keppra that was causing her problems with her parole. In light of this Dilantin will be ordered. [facility] Medical History (Updated 01/14/22 @ 17:[address] Kaylee Gonzalez MD) Anemia Anxiety and depression Arthritis Asthma Back problem Bipolar disorder Chronic back pain Chronic bronchitis Chronic seizure disorder with history of head trauma COPD (chronic obstructive pulmonary disease) Endometriosis Factor XIII deficiency disease Hepatitis B Hepatitis C Hepatitis C History of substance abuse History of UTI HPV (human papilloma virus) infection Hyperlipidemia Methamphetamine dependence in remission Nicotine dependence PTSD (post-traumatic stress disorder) Seizure Seizure disorder Syncope Vertigo Home Medications fluticasone propionate 50 mcg/actuation nasal spray,suspension 2 spray INTRANASAL DAILY ml 12/22/20 [History Last Taken Unknown] nabumetone 500 mg tablet 500 mg PO BID PRN tab 07/01/21 [History Last Taken Unknown] tizanidine 4 mg tablet 4 mg PO Q8H PRN tab 07/01/21 [History Last Taken Unknown] trazodone 150 mg tablet 225 mg PO QHS PRN tab 07/01/21 [History Last Taken Unknown] albuterol sulfate 2 puff INHALATION Q2H PRN PRN 09/26/21 [History Last Taken Unknown] fluticasone propionate [Flovent HFA] 1 inh INHALATION BID 09/26/21 [History Last Taken Unknown] gabapentin 300 mg PO TID 09/26/21 [History Last Taken Unknown] lamotrigine 150 mg tablet 150 mg PO BID #60 tab 11/15/21 [Rx Last Taken Unknown] Allergy/AdvReac Type Severity Reaction Status Date / Time acetaminophen [From Vicodin] AdvReac Upset Verified 01/14/22 15:17 Stomach hydrocodone [From Vicodin] AdvReac Upset Verified 01/14/22 15:17 Stomach latex AdvReac Fever and Verified 01/14/22 15:17 skin rash Family History Mother COPD (chronic obstructive pulmonary disease) Cancer lung Breast cancer Heart disease Seizures Sister Cancer cervical Brother Asthma COPD (chronic obstructive pulmonary disease) Seizures Grandmother Breast cancer CVA (cerebral vascular accident) Grandfather Cancer testicular Aunt CVA (cerebral vascular accident) Surgical History History of History of dilatation and curettage History of tubal ligation Social History household members: spouse Smoking Status: Current every day smoker tobacco type: cigarettes Tobacco: How many years used: 25 Electronic Cigarette Use: not used second hand exposure: Yes alcohol intake: former substance use type: does not use, former substance user Date of last use: 02/20/21, crack/cocaine and methamphetamine caffeine: Yes Type: coffee Number of servings: 4 ROS ROS ED Constitutional Constitutional ED: Denies chills or fever(s) Eyes Eyes: Denies blurry vision ENT ENT ED: Denies rhinorrhea Cardiovascular Cardiovascular: Denies chest pain or palpitations Respiratory/Chest Respiratory/Chest: Denies cough or dyspnea Gastrointestinal Gastrointestinal: Reports nausea and other Details: Admits to eating well recently but not drinking as much as she should. ; Denies abdominal pain or vomiting Musculoskeletal Musculoskeletal: Denies back pain or neck pain Integumentary Denies rash Neurologic Neurologic: Denies headache(s) Allergic/Immunologic Allergic/Immunologic ED: Denies urticaria EXAM Physical Exam Const Vital Signs: 01/14/22 15:18 01/14/22 15:25 01/14/22 15:41 Temperature 98.2 F Temperature Source Temporal Pulse Rate 87 83 87 Respiratory Rate 20 H 18 17 Blood Pressure 124/83 H 111/79 Blood Pressure Mean 96 89 Pulse Ox 97 100 100 Oxygen Delivery Method Room Air Nasal Cannula Nasal Cannula Oxygen Flow Rate (L/min) 2 2 01/14/22 15:49 01/14/22 16:08 01/14/22 17:00 Temperature Temperature Source Pulse Rate 77 84 72 Respiratory Rate 20 H 20 H 18 Blood Pressure 110/80 112/77 95/64 Blood Pressure Mean 90 88 74 Pulse Ox 100 100 99 Oxygen Delivery Method Nasal Cannula Nasal Cannula Nasal Cannula Oxygen Flow Rate (L/min) 2 2 2 Positive well nourished and well developed General Appearance ED: well developed HEENT Reports moist mucous membranes HEENT Narrative: No tongue bite injury. Eyes PERRL and EOMs intact bilaterally Neck supple Chest Wall inspection of chest normal and palpation of chest normal Resp normal respiratory effort and clear to auscultation bilaterally Cardio regular rate and regular rhythm GI non-tender Palpation: soft Extremity normal to inspection Neuro oriented x3 Sensorium / Orientation: alert Skin no rashes or lesions noted MDM MDM MDM Narrative Medical decision making narrative: Patient has had recurrent seizure episodes while in the emergency room. She is back to baseline and answering questions appropriately between each episode. Lab work, tox screen, head CT ordered. Patient ordered Dilantin. Lab Data Attestation: I reviewed the patient's lab results. Labs: Laboratory Results - last 24 hr 01/14/22 01/14/22 01/14/22 15:25 15:25 15:25 WBC 4.7 RBC 4.07 L Hgb 12.5 Hct 36.9 L MCV 90.7 MCH 30.7 MCHC 33.9 RDW Std Deviation 38.6 RDW Coeff of Main 11.6 Plt Count 295 MPV 9.3 Immature Gran % (Auto) 0.200 Neut % (Auto) 48.5 Lymph % (Auto) 40.5 [place] % (Auto) 7.9 Eos % (Auto) 2.3 Baso % (Auto) 0.6 Absolute Neuts (auto) 2.3 Absolute Lymphs (auto) 1.90 Nucleated RBC % 0 Sodium 139 Potassium 4.0 Chloride 108 H Carbon Dioxide 27.0 Anion Gap 4 L BUN 5 L Creatinine 0.86 Estim Creat Clear Calc 68.09 Est GFR (MDRD) Af Amer 93 Est GFR (MDRD) Non-Af 77 BUN/Creatinine Ratio 5.8 L Glucose 91 Calcium 8.5 Serum , Qual NEGATIVE Urine Color Urine Clarity Urine pH Ur Specific [place] Urine Protein Urine Glucose (UA) Urine Ketones Urine Occult Blood Urine Nitrite Urine Bilirubin Urine Urobilinogen Ur Leukocyte Esterase Urine RBC Urine WBC Ur Squamous Epith Cells Urine Bacteria Urine Mucus Urine Opiates Screen Urine Methadone Screen Ur Barbiturates Screen Ur Phencyclidine Scrn Ur Amphetamines Screen MDMA (Ecstasy) Screen U Benzodiazepines Scrn Urine Cocaine Screen U Cannabinoids Screen Ur Drug Screen Comment 01/14/22 01/14/22 16:25 16:25 WBC RBC Hgb Hct MCV MCH MCHC RDW Std Deviation RDW Coeff of Main Plt Count MPV Immature Gran % (Auto) Neut % (Auto) Lymph % (Auto) [place] % (Auto) Eos % (Auto) Baso % (Auto) Absolute Neuts (auto) Absolute Lymphs (auto) Nucleated RBC % Sodium Potassium Chloride Carbon Dioxide Anion Gap BUN Creatinine Estim Creat Clear Calc Est GFR (MDRD) Af Amer Est GFR (MDRD) Non-Af BUN/Creatinine Ratio Glucose Calcium Serum , Qual Urine Color Yellow Urine Clarity Clear Urine pH 7.0 Ur Specific [place] 1.005 Urine Protein Negative Urine Glucose (UA) Normal Urine Ketones Negative Urine Occult Blood 10 H Urine Nitrite Negative Urine Bilirubin Negative Urine Urobilinogen Normal Ur Leukocyte Esterase Negative Urine RBC 0 SEEN Urine WBC 0 SEEN Ur Squamous Epith Cells 0-5 SEEN Urine Bacteria 0 SEEN Urine Mucus 0 SEEN Urine Opiates Screen NEGATIVE Urine Methadone Screen NEGATIVE Ur Barbiturates Screen NEGATIVE Ur Phencyclidine Scrn NEGATIVE Ur Amphetamines Screen NEGATIVE MDMA (Ecstasy) Screen NEGATIVE U Benzodiazepines Scrn POSITIVE H Urine Cocaine Screen NEGATIVE U Cannabinoids Screen NEGATIVE Ur Drug Screen Comment Radiography Diagnostic Testing: Clinical Impression(s) from Imaging Studies Brain CT 01/14/22 16:34 IMPRESSION: No acute intracranial abnormality. Electronically Signed: Santy Church MD at 16:52 EDT , EKG Initial EKG: Attestation: I personally reviewed and interpreted this EKG as follows: Interpretation: Sinus Rhythm (Sinus 81 with no acute ischemia.) Treatment and Re-Evaluation Narrative: Lab work is unremarkable. test negative. Tox screen is positive only for benzos which she received prior to obtaining the tox screen. CT head shows no acute abnormalities. EKG is unremarkable. Patient did receive a total of 2 mg of Ativan here along with Dilantin load. Patient has had multiple brief seizures, but interestingly is alert and able to speak normally immediately after the seizures. Patient was admitted in November of last year and EEG at that time was negative. With patient having such an increase in her seizures today I did recommend hospitalization. I did discuss with her that we may need to transfer her to a facility where 24-hour EEG monitoring would be available. She adamantly refuses this. She understands that we do not have in person neurology coverage or the ability to do a 24-hour EEG. I spoke with the hospitalist and patient be placed on PCU for observation status. Discharge Plan Triage Chief Complaint: Seizure ED Provider: Kaylee Gonzalez Dx/Rx/DC Orders Clinical Impression: Epilepsy, Breakthrough seizure Prescriptions: No Action fluticasone propionate 50 mcg/actuation spray,suspension 2 spray INTRANASAL DAILY RF: 0 nabumetone 500 mg tablet 500 mg PO BID PRN (Reason: Pain) RF: 0 trazodone 150 mg tablet 225 mg PO QHS PRN (Reason: Sleep) RF: 0 tizanidine 4 mg tablet 4 mg PO Q8H PRN (Reason: Pain) RF: 0 gabapentin 300 mg Capsule 300 mg PO TID RF: 0 albuterol sulfate 90 mcg/actuation HFA aerosol inhaler 2 puff INHALATION Q2H PRN PRN (Reason: Cough) RF: 0 Flovent HFA 110 mcg/actuation HFA aerosol inhaler 1 inh INHALATION BID RF: 0 lamotrigine 150 mg tablet 150 mg PO BID Qty: 60 RF: 2 Primary Care Provider: Shadi Ac Referrals: Shadi Ac MD [Primary Care Provider] - Disposition Disposition: Acute Care Hospital [facility]
[2022-01-14 15:44] LABS: Absolute Neutrophil Count 2.3 X10^3/uL (2.0-7.7); Basophil# 0.03 X10^3/uL; Basophil% 0.6 % (0-1); Eosinophil# 0.11 X10^3/uL; Eosinophils% 2.3 % (0-5); Hematocrit 36.9 % (37-47); Hemoglobin 12.5 g/dL (12.0-15.0); Lymphocyte % 40.5 % (19-41); Mean Corp Hgb Conc 33.9 g/dL (32-36); Mean Corpuscular Hgb 30.7 pg (27.0-32.0); Mean Corpuscular Volume 90.7 fL (81-99); Mean Platelet Vol. 9.3 fl (6.2-12.0); Monocyte# 0.37 X10^3/uL; Monocyte% 7.9 % (0-10); NRBC Flagged by Analyzer 0 % (0-5); Neutrophil # 2.27 X10^3/uL (2.7-7.7); Neutrophil % 48.5 % (47-70); Platelet Count 295 K/mm3 (150-450); RBC Distribution Width CV 11.6 % (11.6-14.6); RBC Distribution Width SD 38.6 fl (35.1-43.9); Red Blood Count 4.07 M/mm3 (4.2-5.4); White Blood Count 4.7 K/mm3 (4.4-11.0)
[2022-01-14 15:50] LABS: Anion Gap 4 (5-15); BUN 5 mg/dL (7-18); BUN/Creat Ratio 5.8 RATIO (10-20); Calcium,Total 8.5 mg/dL (8.5-10.1); Chloride 108 mmol/L (98-107); Creatinine, Serum 0.86 mg/dL (0.55-1.02); EST Glomerular Filtration Rate 77 mL/min (>60); Est Glom Filt Rate - Afr Amer 93 mL/min (>60); Estimated Creatinine Clearance 68.09 ml/min; Glucose 91 mg/dL (74-106); Sodium Level 139 mmol/L (136-145)
[2022-01-14 16:32] LABS: Bacteria 0 SEEN /hpf (None Seen); Mucous, Urine 0 SEEN /hpf (<or=2+); Red Blood Cells-Urine 0 SEEN /hpf (0-5); White Blood Cells 0 SEEN /hpf (0-5)
--- NOTE | 2022-01-14 16:34 | CT_ITS ---
EXAMINATION : Head CT w/out contrast HISTORY : seizure COMPARISON : None. TECHNIQUE : Multiple contiguous axial images were obtained from the skull base to the vertex without intravenous contrast. A radiation dose optimization technique was used for this scan. FINDINGS : The ventricles and sulci are normal in size. There is no evidence for acute intracranial hemorrhage, mass effect, or midline shift. There is no extra-axial fluid collection. There is normal koroma-white differentiation, without CT evidence of acute ischemia or infarct. The skull base and calvarium are unremarkable. The orbits are unremarkable. The paranasal sinuses are clear. The mastoid air cells are well-aerated. The soft tissues are unremarkable. CT/Brain/Head without Contrast IMPRESSION: No acute intracranial abnormality. Electronically Signed: Santy Church MD at 16:52 EDT ,
[2022-01-14 16:36] LABS: Color, Urine Yellow (Yellow); Glucose, Dipstick Normal (Normal); Ketone-Dipstick Negative (Negative); Leukocyte Esterase-Dipstick Negative /ul (Negative); Nitrite-Dipstick Negative (Negative); Occult Blood-Urine 10 /ul (Negative); Protein-Dipstick Negative (Negative); Specific Gravity, Urine 1.005 (1.002-1.030); Urine Bilirubin Dipstick Negative (Negative); Urine Clarity Clear (Clear); Urine Urobilinogen Normal (Normal)
[2022-01-14 16:39] LABS: Internal QC Validated? YES +Cl - CLEAR BKGD; Pregnancy, Serum, hCG Quali. NEGATIVE Negative
[2022-01-14 16:45] LABS: Squamous Epithelial Cells - UA 0-5 SEEN /hpf (5-10)
[2022-01-14 16:49] LABS: Amphetamine Urine VISTA NEGATIVE (<1000 ng/mL); Barbiturate Urine VISTA NEGATIVE (< 200 ng/mL); Benzodiazepine Urine VISTA POSITIVE (< 200 ng/mL); Cocaine Urine VISTA NEGATIVE (< 300 ng/mL); Ecstacy Urine VISTA NEGATIVE (< 500 ng/mL); Methadone Urine VISTA NEGATIVE (< 300 ng/mL); PCP Urine VISTA NEGATIVE (< 25 ng/mL); THC Urine VISTA NEGATIVE (< 50 ng/mL); Vista UDS pH Range 7
--- NOTE | 2022-01-14 17:00 | NURSING ---
full body seizure activity noted at 1521 (30 seconds), 1532 (30 seconds), 1540 (25 seconds), 1542 (15 seconds), 1606 (10 seconds), 1612 (15 seconds). Dr Gonzalez made aware if not in room to see patient. after seizures patient is drowsy but arouses and answers questions and follow commands appropriately. currently sleeping in room with no seizure activity.
--- NOTE | 2022-01-14 17:49 | PCM.HP.STD ---
Documented by User: Sarah Reed NP, [employer]PLIANCE [employer]NALYST-C 01/14/22 18:03 HPI - General HPI Narrative ROWAN CANCHOLA, is a 41 F who presents to the emergency room due to breakthrough seizures. Patient reports she typically has 1 breakthrough seizure per month however she states she has had approximately 8 seizures in the past 24 hours. She reports a history of grand mal seizures which were diagnosed when she was a child. She states she stopped taking Keppra approximately 5 to 6 months ago as patient reports it caused her urine tox screen to be positive for fentanyl and she states she is on probation. She reports increased in seizure activity since Keppra was discontinued. She denies any recent drug use and states she has been clean for at least 1 year. She denies recent illness or other recent medication changes. Denies other associated symptoms or complaints. She has a history of anxiety, depression, PTSD, bipolar disorder, epilepsy, illicit drug use, hepatitis C, tobacco dependence. [facility] Medical History Anemia Anxiety and depression Arthritis Asthma Back problem Bipolar disorder Chronic back pain Chronic bronchitis Chronic seizure disorder with history of head trauma COPD (chronic obstructive pulmonary disease) Endometriosis Factor XIII deficiency disease Hepatitis B Hepatitis C Hepatitis C History of substance abuse History of UTI HPV (human papilloma virus) infection Hyperlipidemia Methamphetamine dependence in remission Nicotine dependence PTSD (post-traumatic stress disorder) Seizure Seizure disorder Syncope Vertigo Home Medications fluticasone propionate 50 mcg/actuation nasal spray,suspension 2 spray INTRANASAL DAILY ml 12/22/20 [History Last Taken Unknown] nabumetone 500 mg tablet 500 mg PO BID PRN tab 07/01/21 [History Last Taken 01/14/22] tizanidine 4 mg tablet 2 - 4 mg PO Q8H PRN tab 07/01/21 [History Last Taken 01/13/22] trazodone 150 mg tablet 225 mg PO QHS PRN tab 07/01/21 [History Last Taken 01/13/22] albuterol sulfate 2 puff INHALATION Q2H PRN PRN 09/26/21 [History Last Taken 01/13/22] fluticasone propionate [Flovent HFA] 1 inh INHALATION BID 09/26/21 [History Last Taken 01/13/22] gabapentin 300 mg PO TID 09/26/21 [History Last Taken 01/14/22] lamotrigine 150 mg tablet 150 mg PO BID #60 tab 11/15/21 [Rx Last Taken 01/14/22] Allergy/AdvReac Type Severity Reaction Status Date / Time acetaminophen [From Vicodin] AdvReac Upset Verified 01/14/22 15:17 Stomach hydrocodone [From Vicodin] AdvReac Upset Verified 01/14/22 15:17 Stomach latex AdvReac Fever and Verified 01/14/22 15:17 skin rash Family History (Updated 01/14/22 @ 17:54 by Sarah Reed NP, [employer]NALYST-C) Mother COPD (chronic obstructive pulmonary disease) Cancer lung Breast cancer Heart disease Seizures Sister Cancer cervical Brother Asthma COPD (chronic obstructive pulmonary disease) Seizures Grandmother Breast cancer CVA (cerebral vascular accident) Grandfather Cancer testicular Aunt CVA (cerebral vascular accident) Father Heart disease Surgical History History of History of dilatation and curettage History of tubal ligation Social History household members: spouse Smoking Status: Current every day smoker tobacco type: cigarettes Tobacco: How many years used: 25 Electronic Cigarette Use: not used second hand exposure: Yes alcohol intake: former substance use type: does not use, former substance user Date of last use: 02/20/21, crack/cocaine and methamphetamine caffeine: Yes Type: coffee Number of servings: 4 ROS Constitutional Constitutional: Denies change in weight, chills, fatigue, fever(s) or weakness Cardiovascular Cardiovascular: Denies chest pain, edema, lightheadedness, palpitations or syncope Respiratory/Chest Respiratory/Chest: Denies cough, dyspnea, productive cough, shortness of breath at rest, shortness of breath with exertion or wheezing Gastrointestinal Gastrointestinal: Denies abdominal pain, constipation, diarrhea, nausea or vomiting Genitourinary Genitourinary: Denies burning urination, difficulty urinating, dysuria, hematuria, urinary frequency, urinary incontinence or urinary urgency Musculoskeletal Musculoskeletal: Denies back pain, joint pain or muscle weakness Integumentary Integumentary: Denies erythema, lesions, rash or wounds Neurologic Neurologic: Reports seizure-like activity; Denies abnormal speech, confusion, dizziness, focal weakness, numbness, paresthesias or syncope Psychiatric Psychiatric: Denies anxiety or depression Hematologic/Lymphatic Hematologic/Lymphatic: Denies anemia, easy bleeding or easy bruising Allergic/Immunologic Allergic/Immunologic: Denies hives or asthma Vital Signs Vital Signs Vital Signs: 01/14/22 15:18 01/14/22 15:25 01/14/22 15:41 Temperature 98.2 F Temperature Source Temporal Pulse Rate 87 83 87 Respiratory Rate 20 H 18 17 Blood Pressure 124/83 H 111/79 Blood Pressure Mean 96 89 Pulse Ox 97 100 100 Oxygen Delivery Method Room Air Nasal Cannula Nasal Cannula Oxygen Flow Rate (L/min) 2 2 01/14/22 15:49 01/14/22 16:08 01/14/22 17:00 Temperature Temperature Source Pulse Rate 77 84 72 Respiratory Rate 20 H 20 H 18 Blood Pressure 110/80 112/77 95/64 Blood Pressure Mean 90 88 74 Pulse Ox 100 100 99 Oxygen Delivery Method Nasal Cannula Nasal Cannula Nasal Cannula Oxygen Flow Rate (L/min) 2 2 2 Weight Weight: 135 lb Body Mass Index (BMI) 24.7 Physical Exam Const alert, oriented x3 and no apparent distress Constitutional Narrative: Fatigued appearing Orientation / Consciousness: awake, oriented to person, oriented to place and oriented to time HEENT normocephalic and moist oral mucous membranes Eyes PERRL, EOMs intact bilaterally and conjunctivae normal Neck no lymphadenopathy Resp normal respiratory effort and clear to auscultation bilaterally Cardio regular rate, regular rhythm and no murmurs Peripheral Pulses: pulses 2+ throughout GI normal to inspection, nondistended, normoactive bowel sounds, non-tender and non-distended Extremity normal to inspection Skin no rashes or lesions noted Lesions: no lesions Rashes: no rashes Trauma: no lacerations or abrasions Neuro CN's II-XII intact bilaterally, no focal motor deficits, no sensory deficits noted and deep tendon reflexes 2+ bilaterally Psych mental status grossly normal Mood & Affect: flat affect Results Lab / Micro Data Result Diagrams: 01/14/22 15:25 01/14/22 15:25 Labs: Laboratory Results - last 24 hr 01/14/22 15:25: WBC 4.7, RBC 4.07 L, Hgb 12.5, Hct 36.9 L, MCV 90.7, MCH 30.7, MCHC 33.9, RDW Std Deviation 38.6, RDW Coeff of Main 11.6, Plt Count 295, MPV 9.3, Immature Gran % (Auto) 0.200, Neut % (Auto) 48.5, Lymph % (Auto) 40.5, [place] % (Auto) 7.9, Eos % (Auto) 2.3, Baso % (Auto) 0.6, Absolute Neuts (auto) 2.3, Absolute Lymphs (auto) 1.90, Nucleated RBC % 0 01/14/22 15:25: Sodium 139, Potassium 4.0, Chloride 108 H, Carbon Dioxide 27.0, Anion Gap 4 L, BUN 5 L, Creatinine 0.86, Estim Creat Clear Calc 68.09, Est GFR (MDRD) Af Amer 93, Est GFR (MDRD) Non-Af 77, BUN/Creatinine Ratio 5.8 L, Glucose 91, Calcium 8.5 01/14/22 15:25: Serum , Qual NEGATIVE 01/14/22 16:25: Urine Color Yellow, Urine Clarity Clear, Urine pH 7.0, Ur Specific [place] 1.005, Urine Protein Negative, Urine Glucose (UA) Normal, Urine Ketones Negative, Urine Occult Blood 10 H, Urine Nitrite Negative, Urine Bilirubin Negative, Urine Urobilinogen Normal, Ur Leukocyte Esterase Negative, Urine RBC 0 SEEN, Urine WBC 0 SEEN, Ur Squamous Epith Cells 0-5 SEEN, Urine Bacteria 0 SEEN, Urine Mucus 0 SEEN 01/14/22 16:25: Urine Opiates Screen NEGATIVE, Urine Methadone Screen NEGATIVE, Ur Barbiturates Screen NEGATIVE, Ur Phencyclidine Scrn NEGATIVE, Ur Amphetamines Screen NEGATIVE, MDMA (Ecstasy) Screen NEGATIVE, U Benzodiazepines Scrn POSITIVE H, Urine Cocaine Screen NEGATIVE, U Cannabinoids Screen NEGATIVE, Ur Drug Screen Comment Radiology Impression Brain CT 01/14/22 16:34 IMPRESSION: No acute intracranial abnormality. Electronically Signed: Santy Church MD at 16:52 EDT , Assessment & Plan Assessment/Plan (1) Breakthrough seizure: PLAN: 1. Breakthrough seizure-on Lamictal. Previously on Keppra which patient stopped taking due to reported false positive drug screen while on probation. Initiated on IV Dilantin in ER with as needed Ativan. Will continue. Obtain EEG. Seizure precautions. Consider SOC neurology consult pending further hospital course. 2. Anxiety/depression/PTSD/bipolar disorder-on Lamictal. No other medication regimen. 3. History of illicit drug use-denies recent use. 4. Hepatitis C-following with GI. 5. Tobacco dependence-current 1.5 pack/day smoker. Nicotine replacement patch. DVT prophylaxis-SCDs This patient was seen by DIGNA Abebe under the supervision of Dr. Rodriguez. Time spent examining patient, reviewing data and subsequent management of care: 16 Minutes Documented by User: Dr. Samra Rodriguez MD 01/14/22 18:51 HPI - General General Date of Admission: 01/14/22 [facility] Medical History Anemia Anxiety and depression Arthritis Asthma Back problem Bipolar disorder Chronic back pain Chronic bronchitis Chronic seizure disorder with history of head trauma COPD (chronic obstructive pulmonary disease) Endometriosis Factor XIII deficiency disease Hepatitis B Hepatitis C Hepatitis C History of substance abuse History of UTI HPV (human papilloma virus) infection Hyperlipidemia Methamphetamine dependence in remission Nicotine dependence PTSD (post-traumatic stress disorder) Seizure Seizure disorder Syncope Vertigo Home Medications fluticasone propionate 50 mcg/actuation nasal spray,suspension 2 spray INTRANASAL DAILY ml 12/22/20 [History Last Taken Unknown] nabumetone 500 mg tablet 500 mg PO BID PRN tab 07/01/21 [History Last Taken 01/14/22] tizanidine 4 mg tablet 2 - 4 mg PO Q8H PRN tab 07/01/21 [History Last Taken 01/13/22] trazodone 150 mg tablet 225 mg PO QHS PRN tab 07/01/21 [History Last Taken 01/13/22] albuterol sulfate 2 puff INHALATION Q2H PRN PRN 09/26/21 [History Last Taken 01/13/22] fluticasone propionate [Flovent HFA] 1 inh INHALATION BID 09/26/21 [History Last Taken 01/13/22] gabapentin 300 mg PO TID 09/26/21 [History Last Taken 01/14/22] lamotrigine 150 mg tablet 150 mg PO BID #60 tab 11/15/21 [Rx Last Taken 01/14/22] Allergy/AdvReac Type Severity Reaction Status Date / Time acetaminophen [From Vicodin] AdvReac Upset Verified 01/14/22 15:17 Stomach hydrocodone [From Vicodin] AdvReac Upset Verified 01/14/22 15:17 Stomach latex AdvReac Fever and Verified 01/14/22 15:17 skin rash Family History (Updated 01/14/22 @ 17:54 by Sarah Reed NP, [employer]PLIANCE ANALYST-C) Mother COPD (chronic obstructive pulmonary disease) Cancer lung Breast cancer Heart disease Seizures Sister Cancer cervical Brother Asthma COPD (chronic obstructive pulmonary disease) Seizures Grandmother Breast cancer CVA (cerebral vascular accident) Grandfather Cancer testicular Aunt CVA (cerebral vascular accident) Father Heart disease Surgical History History of History of dilatation and curettage History of tubal ligation Social History household members: spouse Smoking Status: Current every day smoker tobacco type: cigarettes Tobacco: How many years used: 25 Electronic Cigarette Use: not used second hand exposure: Yes alcohol intake: former substance use type: does not use, former substance user Date of last use: 02/20/21, crack/cocaine and methamphetamine caffeine: Yes Type: coffee Number of servings: 4 Results Lab / Micro Data Result Diagrams: 01/14/22 15:25 01/14/22 15:25
--- NOTE | 2022-01-14 19:16 | NURSING ---
Pt insisted on leaving AMA, this nurse discussed in depth with patient and her the risks of leaving AMA. They had a few minutes alone to talk further and both agreed that she would leave AMA.
--- NOTE | 2022-01-15 08:46 | DS.PCM_ITS ---
Providers Date of Admission: 01/14/22 Date of Discharge: 01/14/22 Primary Care Physician: Dr. Shadi Ac MD Reason For Visit: SEIZURES Diagnosis Discharge Diagnosis (1) Breakthrough seizure: Status: Acute Code(s): G40.919 - Epilepsy, unspecified, intractable, without status epilepticus Medications at Discharge Home Medications fluticasone propionate 50 mcg/actuation nasal spray,suspension 2 spray INTRANASAL DAILY ml 12/22/20 nabumetone 500 mg tablet 500 mg PO BID PRN tab 07/01/21 tizanidine 4 mg tablet 2 - 4 mg PO Q8H PRN tab 07/01/21 trazodone 150 mg tablet 225 mg PO QHS PRN tab 07/01/21 albuterol sulfate 2 puff INHALATION Q2H PRN PRN 09/26/21 fluticasone propionate [Flovent HFA] 1 inh INHALATION BID 09/26/21 gabapentin 300 mg PO TID 09/26/21 lamotrigine 150 mg tablet 150 mg PO BID #60 tab 11/15/21 Hospital Course Operations None Procedures None Summary of Care Provided Hospital Course: Patient is a 41-year-old female admitted 01/14/2022 due to breakthrough seizure. 1. Breakthrough seizure-on Lamictal. Previously on Keppra which patient stopped taking due to reported false positive drug screen while on probation. Initiated on IV Dilantin with as needed Ativan. Planned for EEG and SOC neurology consult however patient signed out AGAINST MEDICAL ADVICE shortly after being admitted. 2. Anxiety/depression/PTSD/bipolar disorder-on Lamictal. No other medication regimen. 3. History of illicit drug use-denies recent use. 4. Hepatitis C-following with GI. 5. Tobacco dependence-current 1.5 pack/day smoker. Nicotine replacement patch. Physical Exam Const alert, oriented x3 and no apparent distress Constitutional Narrative: Fatigued appearing Orientation / Consciousness: awake, oriented to person, oriented to place and oriented to time HEENT normocephalic and moist oral mucous membranes Eyes PERRL, EOMs intact bilaterally and conjunctivae normal Neck no lymphadenopathy Resp normal respiratory effort and clear to auscultation bilaterally Cardio regular rate, regular rhythm and no murmurs Peripheral Pulses: pulses 2+ throughout GI normal to inspection, nondistended, normoactive bowel sounds, non-tender and non-distended Extremity normal to inspection Skin no rashes or lesions noted Lesions: no lesions Rashes: no rashes Trauma: no lacerations or abrasions Neuro CN's II-XII intact bilaterally, no focal motor deficits, no sensory deficits noted and deep tendon reflexes 2+ bilaterally Psych mental status grossly normal Mood & Affect: flat affect Patient seen and examined prior to discharge. Physical assessment as noted above. Patient signed out AGAINST MEDICAL ADVICE. This patient was seen by DIGNA Abebe under the supervision of Dr. Rodriguez. Time spent examining patient, reviewing data and subsequent management of care: 14 Minutes Weight / BMI Weight Weight: 130 lb 1.164 oz Body Mass Index (BMI) 24.5 ABG / Lab / Microbiology Data Result Diagrams: 01/14/22 15:25 01/14/22 15:25 Laboratory: Laboratory Results - last 24 hr 01/14/22 15:25: WBC 4.7, RBC 4.07 L, Hgb 12.5, Hct 36.9 L, MCV 90.7, MCH 30.7, MCHC 33.9, RDW Std Deviation 38.6, RDW Coeff of Main 11.6, Plt Count 295, MPV 9.3, Immature Gran % (Auto) 0.200, Neut % (Auto) 48.5, Lymph % (Auto) 40.5, [place] % (Auto) 7.9, Eos % (Auto) 2.3, Baso % (Auto) 0.6, Absolute Neuts (auto) 2.3, Absolute Lymphs (auto) 1.90, Nucleated RBC % 0 01/14/22 15:25: Sodium 139, Potassium 4.0, Chloride 108 H, Carbon Dioxide 27.0, Anion Gap 4 L, BUN 5 L, Creatinine 0.86, Estim Creat Clear Calc 68.09, Est GFR (MDRD) Af Amer 93, Est GFR (MDRD) Non-Af 77, BUN/Creatinine Ratio 5.8 L, Glucose 91, Calcium 8.5 01/14/22 15:25: Serum , Qual NEGATIVE 01/14/22 16:25: Urine Color Yellow, Urine Clarity Clear, Urine pH 7.0, Ur Specific [place] 1.005, Urine Protein Negative, Urine Glucose (UA) Normal, Urine Ketones Negative, Urine Occult Blood 10 H, Urine Nitrite Negative, Urine Bilirubin Negative, Urine Urobilinogen Normal, Ur Leukocyte Esterase Negative, Urine RBC 0 SEEN, Urine WBC 0 SEEN, Ur Squamous Epith Cells 0-5 SEEN, Urine Bacteria 0 SEEN, Urine Mucus 0 SEEN 01/14/22 16:25: Urine Opiates Screen NEGATIVE, Urine Methadone Screen NEGATIVE, Ur Barbiturates Screen NEGATIVE, Ur Phencyclidine Scrn NEGATIVE, Ur Amphetamines Screen NEGATIVE, MDMA (Ecstasy) Screen NEGATIVE, U Benzodiazepines Scrn POSITIVE H, Urine Cocaine Screen NEGATIVE, U Cannabinoids Screen NEGATIVE, Ur Drug Screen Comment Radiography Diagnostic Testing: Radiology Impression Brain CT 01/14/22 16:34 IMPRESSION: No acute intracranial abnormality. Electronically Signed: Santy Church MD at 16:52 EDT , Meaningful Use Info Meaningful Use Diagnoses (Choose all that apply): None applicable Discharge Plan Admission Admit Date/Time: 01/14/22 17:59 Primary Reason for Your Visit: Breakthrough seizure Attending Provider: Samra Rodriguez Primary Care Provider: Shadi Ac Discharge Orders/Prescriptions Prescriptions: No Action fluticasone propionate 50 mcg/actuation spray,suspension 2 spray INTRANASAL DAILY RF: 0 nabumetone 500 mg tablet 500 mg PO BID PRN (Reason: Pain) RF: 0 trazodone 150 mg tablet 225 mg PO QHS PRN (Reason: Sleep) RF: 0 tizanidine 4 mg tablet 2 - 4 mg PO Q8H PRN (Reason: Pain) RF: 0 gabapentin 300 mg Capsule 300 mg PO TID RF: 0 albuterol sulfate 90 mcg/actuation HFA aerosol inhaler 2 puff INHALATION Q2H PRN PRN (Reason: Cough) RF: 0 Flovent HFA 110 mcg/actuation HFA aerosol inhaler 1 inh INHALATION BID RF: 0 lamotrigine 150 mg tablet 150 mg PO BID Qty: 60 RF: 2 Referrals / Follow Up: Shadi Ac MD [Primary Care Provider] - Disposition Disposition (needs filled in before D/C Order can be placed): Against Medical Advice
== END 2022-01-14 19:05 | disposition left against medical advice (07) ==
LOC: ED 17:40 → PCU 19:46
PROVIDERS: Admitting Provider Family Medicine; Emergency Provider Emergency Medicine; PCP Family Medicine; Visit Provider Family Medicine
DX: G40.909 Epilepsy, unspecified, not intractable, without status epilepticus (principal); J44.9 Chronic obstructive pulmonary disease, unspecified; F31.9 Bipolar disorder, unspecified; F17.210 Nicotine dependence, cigarettes, uncomplicated; B19.20 Unspecified viral hepatitis C without hepatic coma; F43.10 Post-traumatic stress disorder, unspecified; F41.9 Anxiety disorder, unspecified; D64.9 Anemia, unspecified; E78.5 Hyperlipidemia, unspecified; G89.29 Other chronic pain; Z79.899 Other long term (current) drug therapy; Z91.14 Patient's other noncompliance with medication regimen; Z79.51 Long term (current) use of inhaled steroids
CPT/HCPCS: 70450; 80048; 80307; 81001; 82542; 84703; 85025; 93005; 96365; 96375; 99218; 99285; A4216; G0378

== ENCOUNTER 2022-01-15 15:35 | Emergency (ER) | payer MEDICAID, SELFPAY ==
[2022-01-15 15:36] VITALS: BP 124/88; PULSE 97; RESP 20; TEMP 36.8; O2SAT 100; BMI 25.1
--- NOTE | 2022-01-15 15:46 | EDS_ITS ---
HPI History of Present Illness Chief Complaint: Seizure Detail of Chief Complaint: Generalized tonic-clonic seizure Informant: spouse/S.O., EMS and other (Patient ER nurse, Ingrid) Limited: other (Postictal) Onset/Context/Timing Onset: Yesterday (Patient seen yesterday for seizure. Note reviewed.) and Hours (3 generalized tonic-clonic seizure with postictal state.) Context: Sudden Onset Timing: Intermittent (1 to 3 minutes) and Waxes and wanes Quality: Generalized Location: 1 episode at home, one in the ambulance and 1 in the emergency room Current Severity: Mild Maximum Severity: Severe Worsened by: Unknown Relieved by: Nothing Associated Symptoms Associated Symptoms: Unable to determine Narrative Narrative: Patient is a 41-year-old woman with history of generalized tonic- clonic seizures on Lamictal and gabapentin. She is not on Keppra because her talk screen triggers a false positive opiate. She does have prior history of drug addiction. A tox screen was obtained yesterday and was negative. Presently patient is postictal. Patient was administered 2 mg of Ativan for third seizure. She still was postictal prior to the onset of the third seizure. History is limited to what the significant other is able to tell me and what is documented on yesterday's note. Prior similar symptoms: Yes Recent Illness/Hospitalization: Yes [facility] Medical History Anemia Anxiety and depression Arthritis Asthma Back problem Bipolar disorder Chronic back pain Chronic bronchitis Chronic seizure disorder with history of head trauma COPD (chronic obstructive pulmonary disease) Endometriosis Factor XIII deficiency disease Hepatitis B Hepatitis C Hepatitis C History of substance abuse History of UTI HPV (human papilloma virus) infection Hyperlipidemia Methamphetamine dependence in remission Nicotine dependence PTSD (post-traumatic stress disorder) Seizure Seizure disorder Syncope Vertigo Home Medications fluticasone propionate 50 mcg/actuation nasal spray,suspension 2 spray INTRANASAL DAILY ml 12/22/20 [History Last Taken Unknown] nabumetone 500 mg tablet 500 mg PO BID PRN tab 07/01/21 [History Last Taken 01/14/22] tizanidine 4 mg tablet 2 - 4 mg PO Q8H PRN tab 07/01/21 [History Last Taken 01/13/22] trazodone 150 mg tablet 225 mg PO QHS PRN tab 07/01/21 [History Last Taken 0 01/13/22] albuterol sulfate 2 puff INHALATION Q2H PRN PRN 09/26/21 [History Last Taken 01/13/22] fluticasone propionate [Flovent HFA] 1 inh INHALATION BID 09/26/21 [History Last Taken 01/13/22] gabapentin 300 mg PO TID 09/26/21 [History Last Taken 01/14/22] lamotrigine 150 mg tablet 150 mg PO BID #60 tab 11/15/21 [Rx Last Taken 01/14/22] Allergy/AdvReac Type Severity Reaction Status Date / Time acetaminophen [From Vicodin] AdvReac Upset Verified 01/15/22 15:36 Stomach hydrocodone [From Vicodin] AdvReac Upset Verified 01/15/22 15:36 Stomach latex AdvReac Fever and Verified 01/15/22 15:36 skin rash Family History Mother COPD (chronic obstructive pulmonary disease) Cancer lung Breast cancer Heart disease Seizures Sister Cancer cervical Brother Asthma COPD (chronic obstructive pulmonary disease) Seizures Grandmother Breast cancer CVA (cerebral vascular accident) Grandfather Cancer testicular Aunt CVA (cerebral vascular accident) Father Heart disease Surgical History History of History of dilatation and curettage History of tubal ligation Social History household members: spouse Smoking Status: Current every day smoker tobacco type: cigarettes Tobacco: How many years used: 25 Electronic Cigarette Use: not used second hand exposure: Yes alcohol intake: former substance use type: does not use, former substance user Date of last use: 02/20/21, crack/cocaine and methamphetamine caffeine: Yes Type: coffee Number of servings: 4 ROS ROS ED Review of Systems ROS Unobtainable: due to mental status EXAM Physical Exam Const Vital Signs: 01/15/22 15:36 Temperature 98.3 F Temperature Source Temporal Pulse Rate 97 Respiratory Rate 20 H Blood Pressure 124/88 H Blood Pressure Mean 100 Pulse Ox 100 Oxygen Delivery Method Nasal Cannula Oxygen Flow Rate (L/min) 2 Positive well nourished and well developed General Appearance ED: well developed; Negative for cyanotic, diaphoretic, NAD or pallor HEENT Reports moist mucous membranes HEENT Narrative: Poor dentition. Nares patent. Ears normal. Negative for trauma or tenderness Eyes PERRL and EOMs intact bilaterally Eyes Narrative: There is no APD. There is no disconjugate gaze. General Eye ED: Negative for pale conjunctiva or scleral icterus Neck no lymphadenopathy, supple and no JVD Resp normal respiratory effort and clear to auscultation bilaterally Cardio regular rate, regular rhythm, S1 normal heart sound, S2 normal heart sound and no murmurs GI normal to inspection, nondistended, normoactive bowel sounds, non-tender and non-distended GI Narrative: Healed surgical scar noted. Palpation: soft Back/Spine Thoracic Spine / Upper Back: Negative for thoracic spinal tenderness or paraspinal muscle tenderness Lumbar Spine / Lower Back: Negative for lumbar spinal tenderness Extremity normal to inspection General Extremety ED: Negative for edema or tenderness General Extremity: Negative for edema Neuro No oriented x3 and CN's II-XII intact bilaterally Neuro Narrative: There is no clonus or Babinski sign. There is no hyperreflexia. Unable to assess cerebellum. Sensorium / Orientation: other Moves all extremities. ; Negative for alert Psych Appearance: other Postictal Skin no rashes or lesions noted and no wounds General Skin Exam: Negative for jaundice or pallor MDM MDM MDM Narrative Medical decision making narrative: By definition patient has status epilepticus. She was treated with Ativan. Will obtain blood work. Since she had several seizures last 24 hours and 3 within a very short time. With no recovery between seizures she will require transfer for neurologic monitoring since we do not have EEG capability at [facility]. The nurse wrecking supervisor was in the room when patient apparently sat up and grabbed my arms. My back prior to that was turned to the patient. He noted that she looked around the room and then sat up. He question whether this seizure that occurred prior to me entering the room was a true seizure or not. If patient had a true generalized tonic-clonic seizure 1 would expect her to have an anion gap acidosis on her basic metabolic panel and elevated lactate. I was informed at 1617 by nurse that patient is requesting pain medicine for her neck pain and medicine for her nausea. She was ordered Tylenol and Zofran respectively. Since patient does have history of drug addiction she was not treated with opiate analgesic. Medical records were reviewed. There is no evidence that she is ever had an EEG. When patient was questioned prior to discharge she did not answer when she was asked when her last EEG was performed. Her does not believe she is ever had 1. Lab Data Attestation: I reviewed the patient's lab results. Lab results narrative: Laboratory work is unremarkable. Patient has a normal anion gap. The blood work was drawn when she reportedly had seizure. Labs: Laboratory Results - last 24 hr 01/15/22 01/15/22 15:55 15:55 WBC 5.3 RBC 4.18 L Hgb 13.3 Hct 37.4 MCV 89.5 MCH 31.8 MCHC 35.6 D RDW Std Deviation 38.0 RDW Coeff of Main 11.6 Plt Count 333 MPV 9.3 Immature Gran % (Auto) 0.400 Neut % (Auto) 59.3 Lymph % (Auto) 32.6 [place] % (Auto) 6.2 Eos % (Auto) 0.9 Baso % (Auto) 0.6 Absolute Neuts (auto) 3.2 Absolute Lymphs (auto) 1.73 Nucleated RBC % 0 Sodium 139 Potassium 3.5 Chloride 109 H Carbon Dioxide 24.0 Anion Gap 6 BUN 3 L Creatinine 0.85 Estim Creat Clear Calc 65.72 Est GFR (MDRD) Af Amer 94 Est GFR (MDRD) Non-Af 78 BUN/Creatinine Ratio 3.5 L Glucose 105 Calcium 8.6 Total Bilirubin 0.40 AST 20 ALT 26 Alkaline Phosphatase 50 Total Protein 7.0 Albumin 3.8 Globulin 3.2 Albumin/Globulin Ratio 1.2 Discharge Plan Triage Chief Complaint: Seizure ED Provider: Bill Santana Dx/Rx/DC Orders Clinical Impression: Pseudoseizure, Nicotine dependence, Hepatitis C, Acute alteration in mental status Instructions: ED Conversion Disdr Conversion Reac Prescriptions: No Action fluticasone propionate 50 mcg/actuation spray,suspension 2 spray INTRANASAL DAILY RF: 0 nabumetone 500 mg tablet 500 mg PO BID PRN (Reason: Pain) RF: 0 trazodone 150 mg tablet 225 mg PO QHS PRN (Reason: Sleep) RF: 0 tizanidine 4 mg tablet 2 - 4 mg PO Q8H PRN (Reason: Pain) RF: 0 gabapentin 300 mg Capsule 300 mg PO TID RF: 0 albuterol sulfate 90 mcg/actuation HFA aerosol inhaler 2 puff INHALATION Q2H PRN PRN (Reason: Cough) RF: 0 Flovent HFA 110 mcg/actuation HFA aerosol inhaler 1 inh INHALATION BID RF: 0 lamotrigine 150 mg tablet 150 mg PO BID Qty: 60 RF: 2 Primary Care Provider: Shadi Ac Referrals: Shadi Ac MD [Primary Care Provider] - 3-5 Days Disposition Disposition: Home, Self Care
[2022-01-15] MEDS: LORazepam 2 MG/ML Syringe IV (15:47)
[2022-01-15 16:08] LABS: Absolute Lymphocyte Count 1.73 X10^3/uL (0.83-4.51); Absolute Neutrophil Count 3.2 X10^3/uL (2.0-7.7); Basophil# 0.03 X10^3/uL; Basophil% 0.6 % (0-1); Eosinophil# 0.05 X10^3/uL; Eosinophils% 0.9 % (0-5); Hematocrit 37.4 % (37-47); Hemoglobin 13.3 g/dL (12.0-15.0); Lymphocyte # 1.73 X10^3/ul (0.83-4.51); Lymphocyte % 32.6 % (19-41); Mean Corp Hgb Conc 35.6 g/dL (32-36); Mean Corpuscular Hgb 31.8 pg (27.0-32.0); Mean Corpuscular Volume 89.5 fL (81-99); Mean Platelet Vol. 9.3 fl (6.2-12.0); Monocyte# 0.33 X10^3/uL; Monocyte% 6.2 % (0-10); NRBC Flagged by Analyzer 0 % (0-5); Neutrophil # 3.15 X10^3/uL (2.7-7.7); Neutrophil % 59.3 % (47-70); Platelet Count 333 K/mm3 (150-450); RBC Distribution Width CV 11.6 % (11.6-14.6); Red Blood Count 4.18 M/mm3 (4.2-5.4); White Blood Count 5.3 K/mm3 (4.4-11.0)
[2022-01-15 16:25] LABS: ALB/GLOB Ratio 1.2 RATIO (0.9-2.4); AST(SGOT) 20 U/L (15-37); Alanine Aminotransfer ALT/SGPT 26 U/L (13-56); Albumin, Serum 3.8 g/dL (3.2-5.0); Alkaline Phosphatase 50 U/L (45-117); Anion Gap 6 (5-15); BUN 3 mg/dL (7-18); BUN/Creat Ratio 3.5 RATIO (10-20); Calcium,Total 8.6 mg/dL (8.5-10.1); Chloride 109 mmol/L (98-107); Creatinine, Serum 0.85 mg/dL (0.55-1.02); EST Glomerular Filtration Rate 78 mL/min (>60); Est Glom Filt Rate - Afr Amer 94 mL/min (>60); Estimated Creatinine Clearance 65.72 ml/min; Globulin 3.2 g/dL (2.2-4.2); Glucose 105 mg/dL (74-106); Potassium 3.5 mmol/L (3.5-5.1); Sodium Level 139 mmol/L (136-145)
[2022-01-15] MEDS: Ondansetron ODT 4 MG Tablet PO (16:25)
[2022-01-15] MEDS: Acetaminophen 500 MG Tablet PO (16:25)
[2022-01-15 17:27] VITALS: BP 108/76; PULSE 72; O2SAT 100
== END 2022-01-15 17:37 | disposition home or self-care (01) ==
PROVIDERS: Emergency Provider Emergency Medicine; PCP Family Medicine; Visit Provider Emergency Medicine
DX: G40.409 Other generalized epilepsy and epileptic syndromes, not intractable, without status epilepticus (principal); J44.9 Chronic obstructive pulmonary disease, unspecified; R41.82 Altered mental status, unspecified; B19.20 Unspecified viral hepatitis C without hepatic coma; F17.210 Nicotine dependence, cigarettes, uncomplicated; Z79.899 Other long term (current) drug therapy
CPT/HCPCS: 80053; 85025; 87811; 96374; 99285; A4216

== ENCOUNTER 2022-01-24 10:45 | Outpatient (CLI) | payer MEDICAID, SELFPAY ==
[2022-01-26 20:18] LABS: Lamotrigine (Lamictal) Level 5.1 ug/mL (2.0-20.0)
== END 2022-01-24 23:59 | disposition home or self-care (01) ==
PROVIDERS: PCP Family Medicine; Referring Provider Psychiatry & Neurology Neurology; Visit Provider Psychiatry & Neurology Neurology
DX: G40.909 Epilepsy, unspecified, not intractable, without status epilepticus (principal)
CPT/HCPCS: 36415; 82140; 82542

== ENCOUNTER 2022-02-07 06:12 | Outpatient (CLI) | payer MEDICAID, SELFPAY | END 2022-02-07 23:59 | disposition home or self-care (01) | LOC: PSN 06:14 | PROVIDERS: PCP Family Medicine; Referring Provider Psychiatry & Neurology Neurology; Visit Provider Psychiatry & Neurology Neurology | DX: G40.909 Epilepsy, unspecified, not intractable, without status epilepticus (principal) | CPT/HCPCS: 95819 ==

== ENCOUNTER 2022-04-21 09:03 | Emergency (ER) | payer MEDICAID, SELFPAY ==
[2022-04-21 09:04] VITALS: BP 103/69; PULSE 86; RESP 16; TEMP 36.6; O2SAT 98; BMI 25.9
--- NOTE | 2022-04-21 09:07 | ED.RN ---
PT DOES NOT WISH TO FILE THIS A WORKMANS COMP. STATES IT HAPPENED AT WORK BUT PREFERS TO JUST NOT MAKE A CLAIM
--- NOTE | 2022-04-21 09:40 | EX.ED.UPPERE ---
HPI <DIGNA Brower - Last Filed: 04/21/22 09:52> History of Present Illness Chief Complaint: Upper Extremity Injury Narrative Narrative: 41-year-old female with history of COPD, hepatitis C, seizures presents to the emergency department with left axilla pain. 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 Patient states that she is a scoop a lot with her left hand. Patient states that she continued working, however today she was unable to complete her job because the pain in her left armpit was excruciating. She is here for evaluation. Patient does not wish this to be a Workmen's Comp. claim. PFS <DIGNA Brower - Last Filed: 04/21/22 09:52> [facility] Medical History Anemia Anxiety and depression Arthritis Asthma Back problem Bipolar disorder Chronic back pain Chronic bronchitis Chronic seizure disorder with history of head trauma COPD (chronic obstructive pulmonary disease) Endometriosis Factor XIII deficiency disease Hepatitis B Hepatitis C Hepatitis C History of substance abuse History of UTI HPV (human papilloma virus) infection Hyperlipidemia Methamphetamine dependence in remission Nicotine dependence PTSD (post-traumatic stress disorder) Seizure Seizure disorder Syncope Vertigo Home Medications fluticasone propionate 50 mcg/actuation nasal spray,suspension 2 spray intranasal DAILY 12/22/20 [History Last Taken Unknown] nabumetone 500 mg tablet 500 mg PO BID PRN Pain 07/01/21 [History Last Taken 01/14/22] trazodone 150 mg tablet 225 mg PO QHS PRN Sleep 07/01/21 [History Last Taken 01/13/22] albuterol sulfate 90 mcg/actuation aerosol inhaler 2 puff inhalation Q2H PRN PRN Cough 09/26/21 [History Last Taken 01/13/22] fluticasone propionate 110 mcg/actuation HFA aerosol inhaler (Flovent HFA) 1 inh inhalation BID 09/26/21 [History Last Taken 01/13/22] gabapentin 300 mg capsule 300 mg PO TID 09/26/21 [History Last Taken 01/14/22] cholecalciferol (vitamin D3) 25 mcg (1,000 unit) capsule 25 mcg PO DAILY 01/20/22 [History Last Taken Unknown] lamotrigine 200 mg tablet 200 mg PO BID #60 tabs 01/20/22 [Rx Last Taken Unknown] naproxen 500 mg tablet (Naprosyn) 500 mg PO BID PRN pain #20 tabs 04/21/22 [Rx Last Taken Unknown] Allergy/AdvReac Type Severity Reaction Status Date / Time acetaminophen [From Vicodin] AdvReac Upset Verified 04/21/22 09:07 Stomach hydrocodone [From Vicodin] AdvReac Upset Verified 04/21/22 09:07 Stomach latex AdvReac Fever and Verified 04/21/22 09:07 skin rash Family History Mother COPD (chronic obstructive pulmonary disease) Cancer lung Breast cancer Heart disease Seizures Sister Cancer cervical Brother Asthma COPD (chronic obstructive pulmonary disease) Seizures Grandmother Breast cancer CVA (cerebral vascular accident) Grandfather Cancer testicular Aunt CVA (cerebral vascular accident) Father Heart disease Surgical History History of History of dilatation and curettage History of tubal ligation Social History household members: spouse Smoking Status: Current every day smoker tobacco type: cigarettes Tobacco: How many years used: 25 Electronic Cigarette Use: not used second hand exposure: Yes alcohol intake: former substance use type: does not use, former substance user Date of last use: 02/20/21, crack/cocaine and methamphetamine caffeine: Yes Type: coffee Number of servings: 4 ROS <DIGNA Brower - Last Filed: 04/21/22 09:52> ROS ED ROS Narrative Constitutional: Negative for fever, chills, weight loss, weakness Eyes: Negative for vision loss, vision change, double vision ENT: Negative for any sore throat, ear pain, congestion Cardiovascular: Negative for any chest pain, tightness, palpitations Respiratory: Negative for any cough, sputum production, hemoptysis, dyspnea, dyspnea on exertion, orthopnea Gastrointestinal: Negative for any abdominal pain, nausea, vomiting, diarrhea, constipation, blood in stool, blood in vomit : Negative for any urinary frequency, dysuria, retention, blood in urine Muscle skeletal: Negative for any muscle joint pain, stiffness, myalgias, arthralgias, neck pain, back pain. Positive for left lateral chest pain, left armpit pain worse with movement and palpation. Neurological: Negative for any headache, syncope, numbness or tingling, dizziness Skin: Negative for any rashes, lumps, itching, abrasions, lacerations Psychiatric: Negative for any depression, anxiety, stress, suicidal ideation, homicidal ideation Hematologic: Negative for any easy bruising, excessive bruising, easy bleeding Allergies: Negative for any eczema, hives, rash EXAM <DIGNA Brower - Last Filed: 04/21/22 09:52> Physical Exam Narrative Exam Narrative: Vital signs reviewed. HEET: Head normocephalic atraumatic, TMs clear bilaterally. Posterior pharynx is clear, moist mucous membranes. Nares clear bilaterally. Neck: Supple with no lymphadenopathy or tenderness. No signs of meningismus, negative jolt sign. Cardiac: Regular rate and rhythm no murmurs gallops or rubs, equal peripheral pulses bilaterally. Respiratory: Lungs clear to auscultation bilaterally. No chest tenderness. Abdomen: Soft, nontender, nondistended. No abdominal bruit or pulsatile masses. No hepatosplenomegaly Extremities: No peripheral edema, no signs of gross trauma or deformity. Active full range of motion of all extremities. Patient has increased pain with abduction, pain on palpation to the axilla around the insertion of the pectoral muscle. There is no bruising. There is no rash. Physical examination is consistent with a pectoral muscle strain. Negative for any neurological focal deficit. +2 radial pulse. Neuro: Cranial nerves II through XII intact, no focal neurological deficits. Skin: Clean dry and intact with no rash, purpura, petechiae, vesicles or pustules. Backs/flank: No CVA tenderness, no midline spinal tenderness, no deformity. Psych: Normal mood and affect. No SI, HI or acute psychosis. Const Vital Signs: 04/21/22 09:04 Temperature 97.9 F Temperature Source Temporal Pulse Rate 86 Respiratory Rate 16 Blood Pressure 103/69 Blood Pressure Mean 80 Pulse Ox 98 Oxygen Delivery Method Room Air Positive well nourished and well developed General Appearance ED: well developed MDM <DIGNA Brower - Last Filed: 04/21/22 09:52> [facility] Treatment and Re-Evaluation Narrative: Patient appears well, patient appears nontoxic, vital signs are stable. Patient presents to the emergency department with complaints of left axilla pain secondary to straining it while at work for the last 6 days. Patient's physical examination is consistent with a muscle strain. The patient has pain over the insertion of the pectoralis muscle on the axilla. Patient will be treated with anti-inflammatories, there is no indication for any radiology. Patient received a work note for the next 2 days. She is instructed to follow with a PCP. Instructed to ice, heat and to perform gentle stretching. Patient is happy with the plan of care and instructed return for any worsening symptoms. <Dr. Ravin Nolan MD - Last Filed: 04/21/22 11:03> [facility] Narrative Medical decision making narrative: Seen and evaluated independently and in conjunction with [employer]. Agree with notes above unless documented otherwise. Benign exam, she is tender in the axillary chest wall without any crepitance, flail, signs of injury, or splinting with deep inspiration. Equal breath sounds bilaterally. I think this is more likely an intercostal strain, I do not think she needs any x-rays, she states that happened when she was doing and a lifting movement acutely at work but does not want to file for Workmen's Comp. Supportive care advised, she asked for a note to be off for her shift today which was given. Discharge Plan Triage Chief Complaint: Upper Extremity Injury ED Midlevel Provider: Archie Ritchie ED Provider: Ravin Nolan Dx/Rx/DC Orders Clinical Impression: Strain of chest wall Instructions: Treating?Strains and Sprains Prescriptions: New naproxen [Naprosyn] 500 mg tablet 500 mg PO BID PRN (Reason: pain) Qty: 20 0RF No Action fluticasone propionate 50 mcg/actuation spray,suspension 2 spray INTRANASAL DAILY Label Comments: Use 2 Sprays in each nostril once daily. Rinse mouth after use. nabumetone 500 mg tablet 500 mg PO BID PRN (Reason: Pain) Label Comments: Take 1 tablet by mouth twice daily as needed for pain. trazodone 150 mg tablet 225 mg PO QHS PRN (Reason: Sleep) Label Comments: Take one (1) tablet by mouth at bedtime, as needed cholecalciferol (vitamin D3) 25 mcg (1,000 unit) capsule 25 mcg PO DAILY lamotrigine 200 mg tablet 200 mg PO BID Qty: 60 4RF gabapentin 300 mg Capsule 300 mg PO TID albuterol sulfate 90 mcg/actuation HFA aerosol inhaler 2 puff INHALATION Q2H PRN PRN (Reason: Cough) Flovent HFA 110 mcg/actuation HFA aerosol inhaler 1 inh INHALATION BID Stand Alone Forms: ED Work / School Excuse Primary Care Provider: Shadi Ac Referrals: Shadi Ac MD [Primary Care Provider] - Activity Restrictions/Additional Instructions: Please ice, heat the area. Please perform gentle stretching use naproxen as needed. Print Language: Barbadian Disposition Disposition: Home, Self Care Discharge Date/Time: 04/21/22 10:00
[2022-04-21] MEDS: Naproxen 500 MG Tablet PO (09:59)
== END 2022-04-21 10:00 | disposition home or self-care (01) ==
PROVIDERS: Emergency Provider Emergency Medicine; PCP Family Medicine; Visit Provider Emergency Medicine
DX: S29.011A Strain of muscle and tendon of front wall of thorax, initial encounter (principal); F17.210 Nicotine dependence, cigarettes, uncomplicated; X58.XXXA Exposure to other specified factors, initial encounter
CPT/HCPCS: 99281; 99283

== ENCOUNTER 2022-10-04 01:05 | Emergency (ER) | payer OTHER, MEDICAID, SELFPAY ==
[2022-10-04 01:06] VITALS: BP 107/72; PULSE 57; RESP 15; TEMP 35.6; O2SAT 100; BMI 24.6
--- NOTE | 2022-10-04 01:26 | EDS_ITS ---
HPI History of Present Illness Chief Complaint: Upper Extremity Injury Informant: patient Occured/Mechanism Mechanism/Context: Yes direct blow Onset/Context/Timing Onset: Today Context: Sudden Onset Timing: Continuous Quality of Pain: - (sore) Location: R index f Current Severity: Mild Maximum Severity: Severe Worsened by: moving, palp Relieved by: remaining still Associated Symptoms Associated Symptoms: Negative for Parasthesia, Weakness or Loss of Funtion Narrative Narrative: Work-related injury, patient states she grabbed a fan and her right index finger accidentally went through the guard and the fan blades hit it. [id number]. No other injury. [facility] Medical History Anemia Anxiety and depression Arthritis Asthma Back problem Bipolar disorder Chronic back pain Chronic bronchitis Chronic seizure disorder with history of head trauma COPD (chronic obstructive pulmonary disease) Endometriosis Epilepsy Factor XIII deficiency disease Hepatitis B Hepatitis C Hepatitis C History of substance abuse History of UTI HPV (human papilloma virus) infection Hyperlipidemia Methamphetamine dependence in remission Nicotine dependence PTSD (post-traumatic stress disorder) Seizure Seizure disorder Syncope Vertigo Home Medications fluticasone propionate 50 mcg/actuation nasal spray,suspension 2 spray intranasal DAILY 12/22/20 [History Last Taken Unknown] nabumetone 500 mg tablet 500 mg PO BID PRN Pain 07/01/21 [History Last Taken 01/14/22] trazodone 150 mg tablet 225 mg PO QHS PRN Sleep 07/01/21 [History Last Taken 01/13/22] albuterol sulfate 90 mcg/actuation aerosol inhaler 2 puff inhalation Q2H PRN PRN Cough 09/26/21 [History Last Taken 01/13/22] fluticasone propionate 110 mcg/actuation HFA aerosol inhaler (Flovent HFA) 1 inh inhalation BID 09/26/21 [History Last Taken 01/13/22] gabapentin 300 mg capsule 300 mg PO TID 09/26/21 [History Last Taken 01/14/22] cholecalciferol (vitamin D3) 25 mcg (1,000 unit) capsule 25 mcg PO DAILY 01/20/22 [History Last Taken Unknown] naproxen 500 mg tablet (Naprosyn) 500 mg PO BID PRN pain #20 tabs 04/21/22 [Rx Last Taken Unknown] lamotrigine 200 mg tablet 200 mg PO BID #60 tabs 05/23/22 [Rx Last Taken Unknown] Allergy/AdvReac Type Severity Reaction Status Date / Time acetaminophen [From Vicodin] AdvReac Upset Verified 05/23/22 13:19 Stomach hydrocodone [From Vicodin] AdvReac Upset Verified 05/23/22 13:19 Stomach latex AdvReac Fever and Verified 05/23/22 13:19 skin rash Family History Mother COPD (chronic obstructive pulmonary disease) Cancer lung Breast cancer Heart disease Seizures Sister Cancer cervical Brother Asthma COPD (chronic obstructive pulmonary disease) Seizures Grandmother Breast cancer CVA (cerebral vascular accident) Grandfather Cancer testicular Aunt CVA (cerebral vascular accident) Father Heart disease Surgical History History of History of dilatation and curettage History of tubal ligation Social History household members: spouse Smoking Status: Current every day smoker tobacco type: cigarettes Tobacco: How many years used: 25 Electronic Cigarette Use: not used second hand exposure: Yes alcohol intake: former substance use type: does not use, former substance user Date of last use: 02/20/21, crack/cocaine and methamphetamine caffeine: Yes Type: coffee Number of servings: 4 ROS ROS ED Constitutional Constitutional ED: Denies chills or fever(s) Musculoskeletal Musculoskeletal: Reports extremity pain; Denies neck pain Integumentary Denies Abrasions, rash or wounds Neurologic Neurologic: Denies paresthesias or weakness EXAM Physical Exam Const Vital Signs: 10/04/22 01:06 Temperature 96.1 F L Temperature Source Temporal Pulse Rate 57 L Respiratory Rate 15 Blood Pressure 107/72 Blood Pressure Mean 83 Pulse Ox 100 Oxygen Delivery Method Room Air Positive well nourished and well developed General Appearance ED: well developed and NAD Neck full ROM and supple Back/Spine normal ROM and normal to inspection Extremity Extremity Narrative: Abrasion to the dorsum of the distal phalanx of the right index finger. No subungual hematoma or nail injury. Tender distal phalanx, DIPJ, and middle phalanx but no other tenderness. Full extension. Able to move the FDS and FDP but limited range of motion due to pain. No swelling. No lacerations. No other injuries or limitations. Neuro oriented x3, no focal motor deficits and no sensory deficits noted Sensorium / Orientation: alert Psych mental status grossly normal and thought process normal Skin no wounds Rashes: no rashes MDM MDM MDM Narrative Medical decision making narrative: Three-view x-ray series of the right index finger negative on my interpretation, radiology in agreement. Patient reassured, given ibuprofen, we cleansed and dressed her finger with a gauze dressing, I do not think she needs a splint since there is no fracture. She was given appropriate work restrictions that are temporary since she is having trouble moving and using her finger, for safety reasons. Discharge Plan Triage Chief Complaint: Upper Extremity Injury ED Provider: Ravin Nolan Dx/Rx/DC Orders Clinical Impression: Abrasion of right index finger, initial encounter, Contusion of right index finger without damage to nail, initial encounter Instructions: ED Finger Contusion Prescriptions: No Action fluticasone propionate 50 mcg/actuation spray,suspension 2 spray INTRANASAL DAILY Label Comments: Use 2 Sprays in each nostril once daily. Rinse mouth after use. nabumetone 500 mg tablet 500 mg PO BID PRN (Reason: Pain) Label Comments: Take 1 tablet by mouth twice daily as needed for pain. trazodone 150 mg tablet 225 mg PO QHS PRN (Reason: Sleep) Label Comments: Take one (1) tablet by mouth at bedtime, as needed cholecalciferol (vitamin D3) 25 mcg (1,000 unit) capsule 25 mcg PO DAILY lamotrigine 200 mg tablet 200 mg PO BID Qty: 60 5RF gabapentin 300 mg Capsule 300 mg PO TID albuterol sulfate 90 mcg/actuation HFA aerosol inhaler 2 puff INHALATION Q2H PRN PRN (Reason: Cough) Flovent HFA 110 mcg/actuation HFA aerosol inhaler 1 inh INHALATION BID naproxen [Naprosyn] 500 mg tablet 500 mg PO BID PRN (Reason: pain) Qty: 20 0RF Stand Alone Forms: Work Status Form Primary Care Provider: Shadi Ac Referrals: [facility] - (1-2 days, call for appt) Shadi Ac MD [Primary Care Provider] - Activity Restrictions/Additional Instructions: For wound care, simply apply a Band-Aid with some antibiotic ointment, such as Neosporin or generic equivalent, and change once daily. Disposition Disposition: Home, Self Care
--- NOTE | 2022-10-04 01:26 | RAD_ITS ---
EXAM: XR RIGHT FINGERS, 2 OR MORE VIEWS CLINICAL INDICATION: injury -- index TECHNIQUE: Frontal, lateral and oblique views of the fingers of the right hand. This report was created using Jusp report generation technology. COMPARISON: None. FINDINGS: BONES/JOINTS: Unremarkable. No acute fracture. No subluxation. Normal alignment. Preservation of the joint space. No sclerotic or destructive changes observed. SOFT TISSUES: Unremarkable. No soft tissue swelling or gas. No radiopaque foreign body. RAD/Finger(s) Min 2 Views IMPRESSION: Negative x-rays of the visualized right fingers. Electronically Signed: Sonido Stallings MD at 2:05 EST ,
[2022-10-04 02:19] VITALS: BP 108/70; PULSE 68; RESP 16; O2SAT 98
== END 2022-10-04 02:22 | disposition home or self-care (01) ==
PROVIDERS: Emergency Provider Emergency Medicine; PCP Family Medicine; Visit Provider Emergency Medicine
DX: S60.021A Contusion of right index finger without damage to nail, initial encounter (principal); J44.9 Chronic obstructive pulmonary disease, unspecified; E78.5 Hyperlipidemia, unspecified; F17.210 Nicotine dependence, cigarettes, uncomplicated; W22.8XXA Striking against or struck by other objects, initial encounter; Y99.0 Civilian activity done for income or pay
CPT/HCPCS: 73140; 99282

== ENCOUNTER 2023-01-02 16:20 | Emergency (ER) | payer MEDICAID, SELFPAY ==
[2023-01-02 16:23] VITALS: BP 105/71; PULSE 65; RESP 14; TEMP 36.5; O2SAT 97; BMI 23.6
--- NOTE | 2023-01-02 17:56 | EDS_ITS ---
HPI History of Present Illness Chief Complaint: Wound Check Informant: patient Narrative Narrative: Patient got a splinter in her nose couple days ago at work. She pulled it out and clean the area. But it is now getting little red and sore. She does not have nausea vomiting fevers chills or any systemic symptoms. No history of immunosuppression steroid use or diabetes. No drainage. No headache. PFSH PFS Medical History Anemia Anxiety and depression Arthritis Asthma Back problem Bipolar disorder Chronic back pain Chronic bronchitis Chronic seizure disorder with history of head trauma COPD (chronic obstructive pulmonary disease) Endometriosis Epilepsy Factor XIII deficiency disease Hepatitis B Hepatitis C Hepatitis C History of substance abuse History of UTI HPV (human papilloma virus) infection Hyperlipidemia Methamphetamine dependence in remission Nicotine dependence PTSD (post-traumatic stress disorder) Seizure Seizure disorder Syncope Vertigo Home Medications fluticasone propionate 50 mcg/actuation nasal spray,suspension 2 spray intranasal DAILY 12/22/20 [History Last Taken Unknown] trazodone 150 mg tablet 225 mg PO QHS PRN Sleep 07/01/21 [History Last Taken 01/13/22] albuterol sulfate 90 mcg/actuation aerosol inhaler 2 puff inhalation Q2H PRN PRN Cough 09/26/21 [History Last Taken 01/13/22] gabapentin 300 mg capsule 300 mg PO TID 09/26/21 [History Last Taken 01/14/22] cholecalciferol (vitamin D3) 25 mcg (1,000 unit) capsule 25 mcg PO DAILY 12/23 11/13 [History Last Taken Unknown] lamotrigine 200 mg tablet 200 mg PO BID #60 tabs 12/13/22 [Rx Last Taken Unknown] melatonin 5 mg capsule mg PO HS PRN 12/13/22 [History Last Taken Unknown] cephalexin 500 mg capsule 500 mg PO Q6 #40 CAPSULES 01/02/23 [Rx Last Taken Unknown] sulfamethoxazole 800 mg-trimethoprim 160 mg tablet (Bactrim DS) 1 tab PO BID #20 tabs 01/02/23 [Rx Last Taken Unknown] Allergy/AdvReac Type Severity Reaction Status Date / Time acetaminophen [From Vicodin] AdvReac Severe Upset Verified 01/02/23 16:24 Stomach hydrocodone [From Vicodin] AdvReac Severe Upset Verified 01/02/23 16:24 Stomach latex AdvReac Fever and Verified 01/02/23 16:24 skin rash Family History Mother COPD (chronic obstructive pulmonary disease) Cancer lung Breast cancer Heart disease Seizures Sister Cancer cervical Brother Asthma COPD (chronic obstructive pulmonary disease) Seizures Grandmother Breast cancer CVA (cerebral vascular accident) Grandfather Cancer testicular Aunt CVA (cerebral vascular accident) Father Heart disease Surgical History History of History of dilatation and curettage History of tubal ligation Social History household members: spouse and other details: mother Smoking Status: Current every day smoker tobacco type: cigarettes Tobacco: How many years used: 25 Electronic Cigarette Use: not used second hand exposure: Yes alcohol intake: former substance use type: does not use, former substance user Date of last use: 02/20/21, crack/cocaine and methamphetamine caffeine: Yes Type: coffee Number of servings: 4 what type of physical activity do you participate in: none re/jehovah's witness: Confucianism seatbelt use: always ROS ROS ED Constitutional Constitutional ED: Denies chills, fever(s) or subjective Eyes Eyes: Denies change in vision or diplopia ENT ENT ED: Reports other Details: See history of present illness Cardiovascular Cardiovascular: Denies chest pain or racing heartbeat Respiratory/Chest Respiratory/Chest: Denies cough or dyspnea Gastrointestinal Gastrointestinal: Denies nausea or vomiting Musculoskeletal Musculoskeletal: Denies arthralgias or myalgias Integumentary Reports rash EXAM Physical Exam Narrative Exam Narrative: Patient is awake alert no acute distress sitting comfortably in bed carries on normal conversation. HEENT does show some erythema of the tip of the nose on the right. Internally I do not see any abscess or swelling. Most of this looks to be just on the edge and outer surface. Total erythema is only about a centimeter or so around. No facial tenderness or swelling. Lungs are clear. Heart is regular not tachycardic There is no systemic rashes seen. Neurologically she is awake alert and appropriate. Const Vital Signs: 01/02/23 16:23 Temperature 97.7 F L Temperature Source Temporal Pulse Rate 65 Respiratory Rate 14 Blood Pressure 105/71 Blood Pressure Mean 82 Pulse Ox 97 Oxygen Delivery Method Room Air MDM MDM MDM Narrative Medical decision making narrative: Because of this location and presence of staph bacteria and the redness that is developed I think it is worth treating this with antibiotics. I explained that there could be fibers of wood left in there but we would not do incisions into the face to look for these. Patient also asked for day off work. I will start both Bactrim and Keflex to provide coverage of strep, staph and resistant staph. We discussed reasons to return and expected course. We also discussed using moist warm compresses on the area to aid healing. Discharge Plan Triage Chief Complaint: Wound Check ED Provider: Jason Ventura Dx/Rx/DC Orders Clinical Impression: Cellulitis of nose Instructions: ED Cellulitis, Facial Prescriptions: New cephalexin [cephalexin] 500 mg capsule 500 mg PO Q6 Qty: 40 0RF sulfamethoxazole-trimethoprim [Bactrim DS] 800-160 mg tablet 1 tab PO BID Qty: 20 0RF No Action fluticasone propionate 50 mcg/actuation spray,suspension 2 spray INTRANASAL DAILY Label Comments: Use 2 Sprays in each nostril once daily. Rinse mouth after use. trazodone 150 mg tablet 225 mg PO QHS PRN (Reason: Sleep) Label Comments: Take one (1) tablet by mouth at bedtime, as needed cholecalciferol (vitamin D3) 25 mcg (1,000 unit) capsule 25 mcg PO DAILY melatonin 5 mg capsule PO HS PRN lamotrigine 200 mg tablet 200 mg PO BID Qty: 60 6RF gabapentin 300 mg Capsule 300 mg PO TID albuterol sulfate 90 mcg/actuation HFA aerosol inhaler 2 puff INHALATION Q2H PRN PRN (Reason: Cough) Stand Alone Forms: ED Work / School Excuse Primary Care Provider: Shadi Ac Referrals: Shadi Ac MD [Primary Care Provider] - 3-5 Days if not improving Disposition Disposition: Home, Self Care
== END 2023-01-02 18:33 | disposition home or self-care (01) ==
PROVIDERS: Emergency Provider Emergency Medicine; PCP Family Medicine; Visit Provider Emergency Medicine
DX: J34.0 Abscess, furuncle and carbuncle of nose (principal); F17.210 Nicotine dependence, cigarettes, uncomplicated
CPT/HCPCS: 99282

== ENCOUNTER 2023-03-27 02:48 | Emergency (ER) | payer BC, SELFPAY ==
[2023-03-27 02:49] VITALS: BP 120/84; PULSE 79; RESP 16; TEMP 36.7; O2SAT 98; BMI 24.4
--- NOTE | 2023-03-27 03:20 | EX.ED.DYSGE1 ---
HPI History of Present Illness Chief Complaint: Syncope Informant: patient Onset/Context/Timing Onset: Hours Context: Sudden Onset Timing: Intermittent Quality: Passed out Location: At work Current Severity: Gone Maximum Severity: Moderate Worsened by: Uncertain Relieved by: Not applicable Associated Symptoms Associated Symptoms: Warmth station, nausea, pallor tunnel vision Narrative Narrative: Patient is a 42-year-old woman with history of seizures and psychiatric illness who presents because she passed out while at work. She was standing. She felt warm. She felt sick to her stomach. There was no postictal state. There was no incontinence of urine or stool. There is no motor activity noted. Episode reportedly lasted seconds. She does report headache. Denies double vision, blurred vision loss of vision. Eyes ringing ears decreased hearing. She denies paresthesia, anesthesia or motor weakness upper lower extremity. She denies problems with balance. Of note she does have history of vertigo. Prior similar symptoms: No Recent Illness/Hospitalization: No PFSH PFSH Medical History Anemia Anxiety and depression Arthritis Asthma Back problem Bipolar disorder Chronic back pain Chronic bronchitis Chronic seizure disorder with history of head trauma COPD (chronic obstructive pulmonary disease) Endometriosis Epilepsy Factor XIII deficiency disease Hepatitis B Hepatitis C Hepatitis C History of substance abuse History of UTI HPV (human papilloma virus) infection Hyperlipidemia Methamphetamine dependence in remission Nicotine dependence PTSD (post-traumatic stress disorder) Seizure Seizure disorder Syncope Vertigo Home Medications trazodone 150 mg tablet 50 mg PO QHS PRN Sleep 07/01/21 [History Last Taken 01/13/22] albuterol sulfate 90 mcg/actuation aerosol inhaler 2 puff inhalation Q2H PRN PRN Cough 09/26/21 [History Last Taken 01/13/22] gabapentin 300 mg capsule 300 mg PO TID 09/26/21 [History Last Taken 01/14/22] cholecalciferol (vitamin D3) 25 mcg (1,000 unit) capsule 25 mcg PO DAILY 01/20/22 [History Last Taken Unknown] melatonin 5 mg capsule 5 mg PO HS PRN Sleep 12/13/22 [History Last Taken Unknown] lamotrigine 200 mg tablet 150 mg PO BID 03/27/23 [History Last Taken Unknown] Allergy/AdvReac Type Severity Reaction Status Date / Time acetaminophen [From Vicodin] AdvReac Severe Upset Verified 01/02/23 16:24 Stomach hydrocodone [From Vicodin] AdvReac Severe Upset Verified 01/02/23 16:24 Stomach latex AdvReac Fever and Verified 01/02/23 16:24 skin rash Family History Mother COPD (chronic obstructive pulmonary disease) Cancer lung Breast cancer Heart disease Seizures Sister Cancer cervical Brother Asthma COPD (chronic obstructive pulmonary disease) Seizures Grandmother Breast cancer CVA (cerebral vascular accident) Grandfather Cancer testicular Aunt CVA (cerebral vascular accident) Father Heart disease Surgical History History of History of dilatation and curettage History of tubal ligation Social History household members: spouse and other details: mother Smoking Status: Current every day smoker tobacco type: cigarettes Tobacco: How many years used: 25 Electronic Cigarette Use: not used second hand exposure: Yes alcohol intake: former substance use type: does not use, former substance user Date of last use: 02/20/21, crack/cocaine and methamphetamine caffeine: Yes Type: coffee Number of servings: 4 what type of physical activity do you participate in: none re/adventism: Holiness seatbelt use: always ROS ROS ED Constitutional Constitutional ED: Denies chills, fever(s), subjective, sweats or weight loss Eyes Eyes: Reports blurry vision bilateral and change in vision bilateral; Denies diplopia ENT ENT ED: Denies ear pain, rhinorrhea or sore throat Cardiovascular Cardiovascular: Denies chest pain or palpitations Respiratory/Chest Respiratory/Chest: Denies cough or dyspnea Gastrointestinal Gastrointestinal: Reports nausea; Denies abdominal pain, diarrhea, melena or vomiting Genitourinary Genitourinary ED: Reports LMP (females 10-50) Details: Comment: (2 weeks ago); Denies dysuria, hematuria or urinary frequency Musculoskeletal Musculoskeletal: Denies arthralgias, back pain, myalgias or neck pain Integumentary Denies rash Neurologic Neurologic: Denies headache(s), paresthesias or weakness Psychiatric Psychiatric: Denies anxiety or depression Endocrine Endocrinology: Denies cold intolerance or heat intolerance Hematologic/Lymphatic Hematologic/Lymphatic: Reports systems reviewed and no addt'l complaints, except as documented EXAM Physical Exam Const Vital Signs: 03/27/23 02:49 03/27/23 02:53 03/27/23 03:28 Temperature 98.1 F Temperature Source Oral Pulse Rate 79 Pulse Rate [Lying] 66 Pulse Rate [Sitting (for 1 minute prior to obtaining)] 69 Pulse Rate [Standing (for 1 minute prior to obtaining)] 68 Respiratory Rate 16 Respiratory Effort Normal Non-Labored Blood Pressure 120/84 H Blood Pressure [Lying] 113/82 H Blood Pressure [Sitting (for 1 minute prior to obtaining)] 118/88 H Blood Pressure [Standing (for 1 minute prior to obtaining)] 110/79 Blood Pressure Mean 96 Blood Pressure Mean [Lying] 92 Blood Pressure Mean [Sitting (for 1 minute prior to obtaining)] 98 Blood Pressure Mean [Standing (for 1 minute prior to obtaining)] 89 Pulse Ox 98 Oxygen Delivery Method Room Air Positive well nourished and well developed General Appearance ED: well developed and NAD; Negative for cyanotic, diaphoretic or pallor HEENT Reports dry mucous membranes HEENT Narrative: Head is atraumatic and normocephalic. TMs normal. Nares patent. Posterior pharynx is normal. Mouth ED: Yes dry mucous membranes Mouth: dry mucous membranes Eyes PERRL and EOMs intact bilaterally Eyes Narrative: There is no nystagmus. General Eye ED: Negative for pale conjunctiva or scleral icterus Neck no lymphadenopathy, supple and no JVD Resp normal respiratory effort and clear to auscultation bilaterally Cardio regular rate, regular rhythm, S1 normal heart sound, S2 normal heart sound and no murmurs GI normal to inspection, nondistended, normoactive bowel sounds, non-tender, non-distended and no masses; Negative for hepatosplenomegaly Palpation: soft Back/Spine no CVA tenderness Extremity normal to inspection Extremity Narrative: There is no asymmetry, swelling, discoloration, leg vein distention, palpable cords or tenderness along the distribution of the deep venous system. General Extremety ED: Negative for edema or tenderness General Extremity: Negative for edema Neuro oriented x3, CN's II-XII intact bilaterally and no sensory deficits noted Neuro Narrative: There is no dysmetria. There is no clonus or Babinski sign. Sensorium / Orientation: alert Motor Exam: strength 5/5 throughout Psych mental status grossly normal Skin no rashes or lesions noted, no wounds and skin turgor normal General Skin Exam: Negative for jaundice or pallor MDM MDM MDM Narrative Medical decision making narrative: Patient's symptoms are consistent with vasovagal syncope. Since clinically she complains of thirst is dry mouth orthostatic vitals were obtained. If positive will treat with IV fluids otherwise patient be discharged to home with appropriate home-going structures for vasovagal syncope. Treatment and Re-Evaluation :: Orthostatic vital signs were negative. Therefore, patient was discharged home with appropriate home-going instructions Discharge Plan Triage Chief Complaint: Syncope ED Provider: Bill Santana Dx/Rx/DC Orders Clinical Impression: Syncope, Acute dehydration Instructions: ED Dizziness or Syncope ... Prescriptions: No Action trazodone 150 mg tablet 50 mg PO QHS PRN (Reason: Sleep) Label Comments: Take one (1) tablet by mouth at bedtime, as needed cholecalciferol (vitamin D3) 25 mcg (1,000 unit) capsule 25 mcg PO DAILY melatonin 5 mg capsule 5 mg PO HS PRN (Reason: Sleep) gabapentin 300 mg Capsule 300 mg PO TID albuterol sulfate 90 mcg/actuation HFA aerosol inhaler 2 puff INHALATION Q2H PRN PRN (Reason: Cough) lamotrigine 200 mg tablet 150 mg PO BID Primary Care Provider: Shadi Ac Referrals: Shadi Ac MD [Primary Care Provider] - As Needed Activity Restrictions/Additional Instructions: Recommend drinking more fluids while at work. Disposition Disposition: Home, Self Care
[2023-03-27 03:28] VITALS: BP 110/79; BP 113/82; BP 118/88; PULSE 66; PULSE 68; PULSE 69
== END 2023-03-27 03:37 | disposition home or self-care (01) ==
PROVIDERS: Emergency Provider Emergency Medicine; PCP Family Medicine; Visit Provider Emergency Medicine
DX: R55 Syncope and collapse (principal); J44.9 Chronic obstructive pulmonary disease, unspecified; F31.9 Bipolar disorder, unspecified; G40.909 Epilepsy, unspecified, not intractable, without status epilepticus; F17.210 Nicotine dependence, cigarettes, uncomplicated; E86.0 Dehydration; E78.5 Hyperlipidemia, unspecified; J45.909 Unspecified asthma, uncomplicated; Z79.899 Other long term (current) drug therapy
CPT/HCPCS: 99284

== ENCOUNTER 2023-03-28 00:40 | Emergency (ER) | payer BC, SELFPAY ==
[2023-03-28 00:41] VITALS: BP 101/70; PULSE 82; RESP 15; TEMP 36.9; O2SAT 96; BMI 23.7
--- NOTE | 2023-03-28 01:54 | ED.RN ---
Pt at nurses station, states she feels much better and is leaving. She states she is going back to work, declines speaking to MD. Pt ambulated out of dept without difficulty. MD notified.
--- NOTE | 2023-03-28 02:23 | EDS_ITS ---
HPI History of Present Illness Chief Complaint: General Illness Informant: patient Narrative Narrative: Patient is a 42-year-old female with history of epilepsy, syncope, vertigo and hepatitis C presenting with lightheadedness and concern for . Patient was actually seen in the emergency room yesterday for some lightheaded symptoms and near syncope. While at work she was still little lightheaded and had some mild nausea. She was concerned because her discharge instructions read as lightheadedness in . Patient was not told that she was and did not have a test. She took 2 home test that were negative. She was concerned that maybe she really is and wanted to come back to the emergency room. She was encouraged to come by her job as well. Patient's last menstrual period was 3 to 4 weeks ago. She states she is having some mild lower pelvic cramping consistent with about to get her period. She states that since she is in the ER she is feeling much better. Has no other complaints at this time. Patient was seen for lightheadedness yesterday. She was orthostatic negative and discharged home. [facility] Medical History Anemia Anxiety and depression Arthritis Asthma Back problem Bipolar disorder Chronic back pain Chronic bronchitis Chronic seizure disorder with history of head trauma COPD (chronic obstructive pulmonary disease) Endometriosis Epilepsy Factor XIII deficiency disease Hepatitis B Hepatitis C Hepatitis C History of substance abuse History of UTI HPV (human papilloma virus) infection Hyperlipidemia Methamphetamine dependence in remission Nicotine dependence PTSD (post-traumatic stress disorder) Seizure Seizure disorder Syncope Vertigo Home Medications trazodone 150 mg tablet 50 mg PO QHS PRN Sleep 07/01/21 [History Last Taken 01/13/22] albuterol sulfate 90 mcg/actuation aerosol inhaler 2 puff inhalation Q2H PRN PRN Cough 09/26/21 [History Last Taken 01/13/22] gabapentin 300 mg capsule 300 mg PO TID 09/26/21 [History Last Taken 01/14/22] cholecalciferol (vitamin D3) 25 mcg (1,000 unit) capsule 25 mcg PO DAILY 01/20/22 [History Last Taken Unknown] melatonin 5 mg capsule 5 mg PO HS PRN Sleep 12/13/22 [History Last Taken Unknown] lamotrigine 200 mg tablet 150 mg PO BID 03/27/23 [History Last Taken Unknown] Allergy/AdvReac Type Severity Reaction Status Date / Time acetaminophen [From Vicodin] AdvReac Severe Upset Verified 03/28/23 00:48 Stomach hydrocodone [From Vicodin] AdvReac Severe Upset Verified 03/28/23 00:48 Stomach latex AdvReac Fever and Verified 03/28/23 00:48 skin rash Family History Mother COPD (chronic obstructive pulmonary disease) Cancer lung Breast cancer Heart disease Seizures Sister Cancer cervical Brother Asthma COPD (chronic obstructive pulmonary disease) Seizures Grandmother Breast cancer CVA (cerebral vascular accident) Grandfather Cancer testicular Aunt CVA (cerebral vascular accident) Father Heart disease Surgical History History of History of dilatation and curettage History of tubal ligation Social History household members: spouse and other details: mother Smoking Status: Current every day smoker tobacco type: cigarettes Tobacco: How many years used: 25 Electronic Cigarette Use: not used second hand exposure: Yes alcohol intake: former substance use type: does not use, former substance user Date of last use: 02/20/21, crack/cocaine and methamphetamine caffeine: Yes Type: coffee Number of servings: 4 what type of physical activity do you participate in: none re/alevism: [employer] seatbelt use: always ROS ROS ED Constitutional Constitutional ED: Denies chills, fever(s) or sweats Eyes Eyes: Denies blurry vision or change in vision Cardiovascular Cardiovascular: Denies chest pain Respiratory/Chest Respiratory/Chest: Denies cough Gastrointestinal Gastrointestinal: Reports nausea; Denies abdominal pain or vomiting Genitourinary Genitourinary ED: Denies dysuria or hematuria Musculoskeletal Musculoskeletal: Denies arthralgias or myalgias Integumentary Denies rash Psychiatric Psychiatric: Reports anxiety EXAM Physical Exam Const Vital Signs: 03/28/23 00:41 03/28/23 00:48 Temperature 98.4 F Temperature Source Temporal Pulse Rate 82 Respiratory Rate 15 Respiratory Effort Non-Labored Respiratory Pattern Normal Blood Pressure 101/70 Blood Pressure Mean 80 Pulse Ox 96 Oxygen Delivery Method Room Air Positive well nourished and well developed General Appearance ED: well developed and NAD HEENT Reports moist mucous membranes Eyes PERRL and EOMs intact bilaterally Neck supple and no JVD Chest Wall inspection of chest normal Resp normal respiratory effort and clear to auscultation bilaterally Cardio regular rate and regular rhythm GI normal to inspection, nondistended, normoactive bowel sounds and non-tender Back/Spine no CVA tenderness Extremity normal to inspection General Extremety ED: Negative for edema General Extremity: Negative for edema Neuro oriented x3 Sensorium / Orientation: alert Motor Exam: Negative for general weakness Psych mental status grossly normal Mood & Affect: anxious Skin no rashes or lesions noted MDM MDM MDM Narrative Medical decision making narrative: Patient's evaluated for some transient lightheadedness that since resolved. She states she does have a history of this. She is more concerned that she is given her discharge instructions. I counseled her that she did not have a test done yesterday and is possible that those discharge instructions were entered in error. As she has had negative home test likely she is not . I did offer to obtain test here and check some baseline labs and give the patient fluids which is what she is concerned about. Initially she agreed. Patient then ring the nursing call line stating that she would like to just leave and go back to work. She does not want a wait on results or discharge paperwork. Patient is quite well-appearing and I think it is reasonable for her to follow- up outpatient. Her vital signs are normal in the emergency room. She is asymptomatic on my evaluation. She ambulates with a steady gait. Discharge Plan Triage Chief Complaint: General Illness ED Provider: Amirah Eid Dx/Rx/DC Orders Clinical Impression: Episodic lightheadedness Prescriptions: No Action trazodone 150 mg tablet 50 mg PO QHS PRN (Reason: Sleep) Label Comments: Take one (1) tablet by mouth at bedtime, as needed cholecalciferol (vitamin D3) 25 mcg (1,000 unit) capsule 25 mcg PO DAILY melatonin 5 mg capsule 5 mg PO HS PRN (Reason: Sleep) gabapentin 300 mg Capsule 300 mg PO TID albuterol sulfate 90 mcg/actuation HFA aerosol inhaler 2 puff INHALATION Q2H PRN PRN (Reason: Cough) lamotrigine 200 mg tablet 150 mg PO BID Primary Care Provider: Shadi Ac Referrals: Shadi Ac MD [Primary Care Provider] - Disposition Disposition: Elopement Discharge Date/Time: 03/28/23 01:56
== END 2023-03-28 01:56 | disposition left against medical advice (07) ==
PROVIDERS: Emergency Provider Emergency Medicine; PCP Family Medicine; Visit Provider Emergency Medicine
DX: R42 Dizziness and giddiness (principal); F17.210 Nicotine dependence, cigarettes, uncomplicated
CPT/HCPCS: 99281; 99282

== ENCOUNTER 2023-06-15 13:54 | Emergency (ER) | payer SELFPAY ==
[2023-06-15 13:58] VITALS: BP 102/70; PULSE 79; RESP 18; TEMP 36.3; O2SAT 100; BMI 23.2
--- NOTE | 2023-06-15 15:10 | ED.VIS.FEGU ---
HPI HPI - Female History of Present Illness Chief Complaint: Vag Bleeding Informant: patient and spouse/S.O. Narrative Narrative: Patient presents with vaginal spotting bleeding and some urinary frequency. Patient states that she had her normal menstrual cycle that ended 2 days ago. Then since last night she has passed 3 clots which she shows that about 1 to 1-1/2 cm around. She is not bleeding now. The last 1 was hours ago. She is not having any pain with this. No fevers chills. She has eaten breakfast and lunch and has had no nausea vomiting diarrhea or constipation. She does have a long history of irregular menstrual cycles but states the last few months have actually been more regular. She does not think she is going through menopause. Her mother had hysterectomy at 35 so she does not know the age of her mother's menopause. Patient also complains that she feels like she has to go the bathroom all the time. She has some frequency and pressure. No odor. No fevers or chills. She has had C-sections. She had her right tube tied but she was told her left tube was too scarred down to be tied. One of her concerns is that she could be . [facility] Medical History Anemia Anxiety and depression Arthritis Asthma Back problem Bipolar disorder Chronic back pain Chronic bronchitis Chronic seizure disorder with history of head trauma COPD (chronic obstructive pulmonary disease) Endometriosis Epilepsy Factor XIII deficiency disease Hepatitis B Hepatitis C Hepatitis C History of substance abuse History of UTI HPV (human papilloma virus) infection Hyperlipidemia Methamphetamine dependence in remission Nicotine dependence PTSD (post-traumatic stress disorder) Seizure Seizure disorder Syncope Vertigo Home Medications trazodone 150 mg tablet 50 mg PO QHS PRN Sleep 07/01/21 [History Last Taken 01/13/22] albuterol sulfate 90 mcg/actuation aerosol inhaler 2 puff inhalation Q2H PRN PRN Cough 09/26/21 [History Last Taken 01/13/22] gabapentin 300 mg capsule 300 mg PO TID 09/26/21 [History Last Taken 01/14/22] cholecalciferol (vitamin D3) 25 mcg (1,000 unit) capsule 25 mcg PO DAILY 01/20/22 [History Last Taken Unknown] melatonin 5 mg capsule 5 mg PO HS PRN Sleep 12/13/22 [History Last Taken Unknown] lamotrigine 150 mg tablet 150 mg PO BID #60 tabs 06/14/23 [Rx Last Taken Unknown] sulfamethoxazole 800 mg-trimethoprim 160 mg tablet (Bactrim DS) 1 tab PO BID #14 tabs 06/15/23 [Rx Last Taken Unknown] Allergy/AdvReac Type Severity Reaction Status Date / Time acetaminophen [From Vicodin] AdvReac Severe Upset Verified 06/15/23 13:57 Stomach hydrocodone [From Vicodin] AdvReac Severe Upset Verified 06/15/23 13:57 Stomach latex AdvReac Fever and Verified 06/15/23 13:57 skin rash Family History Mother COPD (chronic obstructive pulmonary disease) Cancer lung Breast cancer Heart disease Seizures Sister Cancer cervical Brother Asthma COPD (chronic obstructive pulmonary disease) Seizures Grandmother Breast cancer CVA (cerebral vascular accident) Grandfather Cancer testicular Aunt CVA (cerebral vascular accident) Father Heart disease Surgical History History of History of dilatation and curettage History of tubal ligation Social History household members: spouse and other details: mother Smoking Status: Current every day smoker tobacco type: cigarettes Tobacco: How many years used: 25 Electronic Cigarette Use: not used second hand exposure: Yes alcohol intake: former substance use type: does not use, former substance user Date of last use: 02/20/21, crack/cocaine and methamphetamine caffeine: Yes Type: coffee Number of servings: 4 what type of physical activity do you participate in: none re/religious: [employer] seatbelt use: always ROS ROS ED ROS Narrative A complete review of systems was performed and is negative except as documented in the history of present illness. Some specific details below. Constitutional: No recent fevers or chills. No malaise. She does not feel generally ill. EYE: No visual complaints or pain. ENT: No difficulty swallowing. No swelling. No pain. No GERD symptoms. She has eaten normally today. CV: No chest pain or palpitations. Respiratory: No dyspnea. No hemoptysis. No difficulty taking breaths. GI: She is not having pain nausea vomiting diarrhea or constipation. : See history of present illness. Musculoskeletal: No recent trauma. No pains. Skin: No rash. Nondiaphoretic. Neuro: No weakness or numbness. Endocrine: No polydipsia. EXAM Physical Exam Narrative Exam Narrative: CONSTITUTIONAL: Patient is nontoxic in appearance. When I walk in the room she is snuggling with her partner on the bed. They are laughing. She looks very comfortable. HEENT: No notable trauma. Mucous membranes moist. EYES: No conjunctival injection. No pallor. CARDIOVASCULAR: Regular rate. Regular rhythm. No notable murmur. No JVD. RESPIRATORY: No respiratory distress. Breathing is unlabored. No wheezes. No rhonchi. No rales. No pain with a deep breath. GASTROINTESTINAL: Not distended. Bowel sounds are normal. No tenderness. No guarding. No rebound. No palpable mass. No bruit. I cannot get any tenderness anywhere in her abdomen or lower pelvic area. Her exam is completely benign. GENITOURINARY: No tenderness over the bladder. No CVA tenderness. MUSCULOSKELETAL: Atraumatic. No peripheral edema. No cord. No tenderness along the deep venous system. No asymmetry. NEUROLOGICAL: Patient is alert and appropriate. No focal deficit noted. SKIN: No noted rashes. No diaphoresis. She does not look pale. No petechiae or purpura. PSYCHIATRIC: Patient is calm. Mood is appropriate. Const Vital Signs: 06/15/23 13:58 Temperature 97.4 F L Temperature Source Temporal Pulse Rate 79 Respiratory Rate 18 Blood Pressure 102/70 Blood Pressure Mean 80 Pulse Ox 100 Oxygen Delivery Method Room Air MDM MDM MDM Narrative Medical decision making narrative: Patient CBC shows minimal anemia at 11.6 but normal white count and platelets. Serum is negative. Urine does show slight increase in leukocyte Estrace 1+ bacteria and increased white cells. Although this is not strong evidence for UTI she also has symptoms of UTI. With having symptoms and this urinalysis we discussed options with the patient. We agreed to initiate treatment for UTI. If culture comes back negative I think it can be stopped. She has not had further bleeding. I do not think ultrasound or further blood work is needed. She is not having any pain. Not having continued bleeding. And her serum is negative. Lab Data Attestation: I reviewed the patient's lab results. Labs: Laboratory Results - last 24 hr 06/15/23 06/15/23 15:20 16:00 WBC 6.3 RBC 3.68 L Hgb 11.6 L Hct 34.6 L MCV 94.0 MCH 31.5 MCHC 33.5 RDW Std Deviation 39.8 RDW Coeff of Main 11.6 Plt Count 286 MPV 9.7 Immature Gran % (Auto) 0.300 Neut % (Auto) 64.7 Lymph % (Auto) 25.1 [place] % (Auto) 6.9 Eos % (Auto) 2.4 Baso % (Auto) 0.6 Absolute Neuts (auto) 4.0 Absolute Lymphs (auto) 1.57 Nucleated RBC % 0 Serum , Qual NEGATIVE Urine Color Yellow Urine Clarity Clear Urine pH 8.0 Ur Specific [place] 1.015 Urine Protein 30 H Urine Glucose (UA) Normal Urine Ketones Negative Urine Occult Blood 150 H Urine Nitrite Negative Urine Bilirubin Negative Urine Urobilinogen 4 H Ur Leukocyte Esterase 25 H Urine RBC 10-25 SEEN Urine WBC 5-10 SEEN Ur Squamous Epith Cells 0-5 SEEN Urine Bacteria 1+ Urine Mucus 0 SEEN Discharge Plan Triage Chief Complaint: Vag Bleeding ED Provider: Jason Ventura Dx/Rx/DC Orders Clinical Impression: UTI (urinary tract infection), Vaginal bleeding Instructions: Urinary Tract Infections in Women Prescriptions: New sulfamethoxazole-trimethoprim [Bactrim DS] 800-160 mg tablet 1 tab PO BID Qty: 14 0RF No Action trazodone 150 mg tablet 50 mg PO QHS PRN (Reason: Sleep) Patient Comments: Take one (1) tablet by mouth at bedtime, as needed cholecalciferol (vitamin D3) 25 mcg (1,000 unit) capsule 25 mcg PO DAILY melatonin 5 mg capsule 5 mg PO HS PRN (Reason: Sleep) lamotrigine 150 mg tablet 150 mg PO BID Qty: 60 7RF gabapentin 300 mg Capsule 300 mg PO TID albuterol sulfate 90 mcg/actuation HFA aerosol inhaler 2 puff INHALATION Q2H PRN PRN (Reason: Cough) Primary Care Provider: Shadi Ac Referrals: Shadi Ac MD [Primary Care Provider] - 3-5 Days if not improving Disposition Disposition: Home, Self Care
[2023-06-15 15:28] LABS: Absolute Lymphocyte Count 1.57 X10^3/uL (0.83-4.51); Basophil# 0.04 X10^3/uL; Basophil% 0.6 % (0-1); Eosinophil# 0.15 X10^3/uL; Eosinophils% 2.4 % (0-5); Hematocrit 34.6 % (37-47); Hemoglobin 11.6 g/dL (12.0-15.0); Lymphocyte # 1.57 X10^3/ul (0.83-4.51); Lymphocyte % 25.1 % (19-41); Mean Corp Hgb Conc 33.5 g/dL (32-36); Mean Corpuscular Hgb 31.5 pg (27.0-32.0); Mean Platelet Vol. 9.7 fl (6.2-12.0); Monocyte# 0.43 X10^3/uL; Monocyte% 6.9 % (0-10); NRBC Flagged by Analyzer 0 % (0-5); Neutrophil # 4.04 X10^3/uL (2.7-7.7); Neutrophil % 64.7 % (47-70); Platelet Count 286 K/mm3 (150-450); RBC Distribution Width CV 11.6 % (11.6-14.6); RBC Distribution Width SD 39.8 fl (35.1-43.9); Red Blood Count 3.68 M/mm3 (4.2-5.4); White Blood Count 6.3 K/mm3 (4.4-11.0)
[2023-06-15 15:42] LABS: Internal QC Validated? YES +Cl - CLEAR BKGD; Pregnancy, Serum, hCG Quali. NEGATIVE Negative
[2023-06-15 16:07] LABS: Mucous, Urine 0 SEEN /hpf (<or=2+)
[2023-06-15 16:18] LABS: Color, Urine Yellow (Yellow); Glucose, Dipstick Normal (Normal); Ketone-Dipstick Negative (Negative); Leukocyte Esterase-Dipstick 25 /ul (Negative); Nitrite-Dipstick Negative (Negative); Occult Blood-Urine 150 /ul (Negative); Protein-Dipstick 30 mg/dl (Negative); Specific Gravity, Urine 1.015 (1.002-1.030); Urine Bilirubin Dipstick Negative (Negative); Urine Clarity Clear (Clear); Urine Urobilinogen 4 mg/dl (Normal)
[2023-06-15 16:31] LABS: Red Blood Cells-Urine 10-25 SEEN /hpf (0-5); White Blood Cells 5-10 SEEN /hpf (0-5)
[2023-06-15 16:32] LABS: Bacteria 1+ /hpf (None Seen); Squamous Epithelial Cells - UA 0-5 SEEN /hpf (5-10)
[2023-06-15 17:00] VITALS: PULSE 87; RESP 18; O2SAT 100
--- NOTE | 2023-06-20 09:08 | ED.RN ---
new prescription called to [facility] for new urine culture results
== END 2023-06-15 17:07 | disposition home or self-care (01) ==
PROVIDERS: Emergency Provider Emergency Medicine; PCP Family Medicine; Visit Provider Emergency Medicine
DX: N39.0 Urinary tract infection, site not specified (principal); N93.9 Abnormal uterine and vaginal bleeding, unspecified; F17.210 Nicotine dependence, cigarettes, uncomplicated
CPT/HCPCS: 36415; 81001; 84703; 85025; 87086; 87088; 87186; 99282

== ENCOUNTER 2023-10-03 02:39 | Emergency (ER) | payer MEDICAID, SELFPAY ==
[2023-10-03 02:41] VITALS: BP 119/94; PULSE 110; RESP 18; TEMP 36.3; O2SAT 99; BMI 18.3
--- NOTE | 2023-10-03 02:50 | EX.ED.SAOD ---
HPI History of Present Illness Chief Complaint: Substance Abuse Detail of Chief Complaint: Requesting detox from methamphetamines Informant: patient Narrative Narrative: Patient presents to the emergency department stating that she has been using amphetamines for about 4 months mostly daily. Normally smokes it. She would like to have detox. Normally she goes to [facility] in [place]. Patient states that she took a home drug test and was positive for fentanyl and MDMA. Patient also states that she has had cough and cold symptoms for about 2 days. She denies any fevers. Cough nonproductive. [facility] Medical History Anemia Anxiety and depression Arthritis Asthma Back problem Bipolar disorder Chronic back pain Chronic bronchitis Chronic seizure disorder with history of head trauma COPD (chronic obstructive pulmonary disease) Endometriosis Epilepsy Factor XIII deficiency disease Hepatitis B Hepatitis C Hepatitis C History of substance abuse History of UTI HPV (human papilloma virus) infection Hyperlipidemia Methamphetamine dependence in remission Nicotine dependence PTSD (post-traumatic stress disorder) Seizure Seizure disorder Syncope Vertigo Home Medications trazodone 150 mg tablet 50 mg PO QHS PRN Sleep 07/01/21 [History Last Taken 01/13/22] albuterol sulfate 90 mcg/actuation aerosol inhaler 2 puff inhalation Q2H PRN PRN Cough 09/26/21 [History Last Taken 01/13/22] gabapentin 300 mg capsule 300 mg PO TID 09/26/21 [History Last Taken 01/14/22] cholecalciferol (vitamin D3) 25 mcg (1,000 unit) capsule 25 mcg PO DAILY 01/20/22 [History Last Taken Unknown] melatonin 5 mg capsule 5 mg PO HS PRN Sleep 12/13/22 [History Last Taken Unknown] lamotrigine 150 mg tablet 150 mg PO BID #60 tabs 06/14/23 [Rx Last Taken Unknown] sulfamethoxazole 800 mg-trimethoprim 160 mg tablet (Bactrim DS) 1 tab PO BID #14 tabs 06/15/23 [Rx Last Taken Unknown] Allergy/AdvReac Type Severity Reaction Status Date / Time acetaminophen [From Vicodin] AdvReac Severe Upset Verified 10/03/23 02:41 Stomach hydrocodone [From Vicodin] AdvReac Severe Upset Verified 10/03/23 02:41 Stomach latex AdvReac Fever and Verified 10/03/23 02:41 skin rash Family History Mother COPD (chronic obstructive pulmonary disease) Cancer lung Breast cancer Heart disease Seizures Sister Cancer cervical Brother Asthma COPD (chronic obstructive pulmonary disease) Seizures Grandmother Breast cancer CVA (cerebral vascular accident) Grandfather Cancer testicular Aunt CVA (cerebral vascular accident) Father Heart disease Surgical History History of History of dilatation and curettage History of tubal ligation Social History household members: spouse and other details: mother Smoking Status: Current every day smoker tobacco type: cigarettes Tobacco: How many years used: 25 Electronic Cigarette Use: not used second hand exposure: Yes alcohol intake: former substance use type: does not use, former substance user Date of last use: 02/20/21, crack/cocaine and methamphetamine caffeine: Yes Type: coffee Number of servings: 4 what type of physical activity do you participate in: none re/denominational: Taoist seatbelt use: always ROS ROS ED Review of Systems ROS Unobtainable: other Constitutional Constitutional ED: Reports lethargy; Denies chills, fever(s), sweats or weight loss Eyes Eyes: Denies blurry vision, change in vision or diplopia ENT ENT ED: Denies rhinorrhea or sore throat Cardiovascular Cardiovascular: Denies chest pain, orthopnea or racing heartbeat Respiratory/Chest Respiratory/Chest: Reports cough; Denies dyspnea, dyspnea on exertion, orthopnea or sputum Gastrointestinal Gastrointestinal: Denies abdominal pain, diarrhea, nausea or vomiting Genitourinary Genitourinary ED: Denies dysuria, hematuria or urinary frequency Musculoskeletal Musculoskeletal: Denies arthralgias, back pain, myalgias or neck pain Integumentary Denies abscess, Abrasions or rash Neurologic Neurologic: Denies headache(s) or weakness Psychiatric Psychiatric: Denies anxiety, depression or suicidal thoughts Endocrine Endocrinology: Denies polydipsia, polyphagia or polyuria Hematologic/Lymphatic Hematologic/Lymphatic: Denies easy bleeding, easy bruising or lymphadenopathy Allergic/Immunologic Allergic/Immunologic ED: Denies mouth swelling, tongue swelling or urticaria EXAM Physical Exam Const Vital Signs: 12/12/23 02:41 Temperature 97.4 F L Temperature Source Temporal Pulse Rate 110 H Respiratory Rate 18 Blood Pressure 119/94 H Blood Pressure Mean 102 Pulse Ox 99 Oxygen Delivery Method Room Air Positive well nourished and well developed General Appearance ED: well developed and NAD HEENT Reports TM's clear and moist mucous membranes normocephalic and atraumatic; Negative for trauma or tenderness Tympanic Membrane ED: Yes TM's clear Eyes PERRL and EOMs intact bilaterally General Eye ED: Negative for pale conjunctiva or scleral icterus Neck no lymphadenopathy, supple and no JVD General: Negative for tenderness Chest Wall inspection of chest normal and palpation of chest normal Chest: Negative for tenderness Resp normal respiratory effort and clear to auscultation bilaterally Effort and Inspection: Negative for respiratory distress or pain with movement Auscultation: Negative for rhonchi, wheezes or diminished lung sounds Cardio regular rate, regular rhythm, S1 normal heart sound, S2 normal heart sound and no murmurs Peripheral Pulses: pulses 2+ throughout GI normal to inspection, nondistended, normoactive bowel sounds, soft to palpation, non-tender, non-distended and no masses Back/Spine no CVA tenderness and no thoracic nor lumbar tenderness Extremity normal to inspection General Extremety ED: Negative for edema General Extremity: Negative for edema Neuro oriented x3, CN's II-XII intact bilaterally, no sensory deficits noted and gait normal Sensorium / Orientation: awake, alert, oriented to person, oriented to place and oriented to time Motor Exam: strength 5/5 throughout and strength abnormal Psych mental status grossly normal Skin no rashes or lesions noted and no wounds MDM MDM MDM Narrative Medical decision making narrative: I explained the patient we do not detox methamphetamines. I offered to check her for COVID and flu which she did not want to do. She states that she will just get some cough medicine and decongestant at the grocery store or pharmacy. Patient states that she will follow-up with [facility] in [place]. Discharge Plan Triage Chief Complaint: Substance Abuse ED Provider: Zackery Meng Dx/Rx/DC Orders Clinical Impression: Illicit drug use, Viral URI Instructions: Meth Abuse Addiction, ED Drug Abuse, ED URI, Viral, No Abx (Adult) Prescriptions: No Action trazodone 150 mg tablet 50 mg PO QHS PRN (Reason: Sleep) Patient Comments: Take one (1) tablet by mouth at bedtime, as needed cholecalciferol (vitamin D3) 25 mcg (1,000 unit) capsule 25 mcg PO DAILY melatonin 5 mg capsule 5 mg PO HS PRN (Reason: Sleep) lamotrigine 150 mg tablet 150 mg PO BID Qty: 60 7RF Patient Comments: not currently taking gabapentin 300 mg Capsule 300 mg PO TID albuterol sulfate 90 mcg/actuation HFA aerosol inhaler 2 puff INHALATION Q2H PRN PRN (Reason: Cough) sulfamethoxazole-trimethoprim [Bactrim DS] 800-160 mg tablet 1 tab PO BID Qty: 14 0RF Primary Care Provider: Shadi Ac Referrals: Shadi Ac MD [Primary Care Provider] - [facility] [Non-Staff] - As soon as possible Disposition Disposition: Home, Self Care Discharge Date/Time: 10/03/23 03:02
== END 2023-10-03 03:02 | disposition home or self-care (01) ==
LOC: ED 03:00
PROVIDERS: Emergency Provider Emergency Medicine; PCP Family Medicine; Visit Provider Emergency Medicine
DX: F15.99 Other stimulant use, unspecified with unspecified stimulant-induced disorder (principal); J06.9 Acute upper respiratory infection, unspecified; F17.210 Nicotine dependence, cigarettes, uncomplicated
CPT/HCPCS: 99282